=== PATIENT | male | born 1945 | race Caucasian/White ===

== ENCOUNTER 2024-02-12 18:47 | Inpatient (IN) | payer MEDICARE, BC, SELFPAY ==
[2024-02-12] VITALS (7 sets, daily range): BP systolic 136–160; BP diastolic 76–112; BMI 30.9; BMI 30.1
[2024-02-12 14:27] LABS: % Basophils 0.3 % (0-2); % Immature Granulocytes 0.4 % (0-0.5); % Lymphocytes 9.8 % (20.5-51.1); % Monocytes 17.2 % (1.7-9.3); % Neutrophils 72.3 % (42.2-75.2); Absolute Lymphocytes 0.9 10^3/uL (1.2-3.4); Absolute Monocytes 1.6 10^3/uL (0.1-0.6); Absolute Neutrophils 6.5 10^3/uL (1.4-6.5); Hematocrit 44.4 % (39.0-52.0); Mean Corp Hgb Conc. 33.8 g/dL (33.0-37.0); Mean Corpuscular Hgb 31.7 pg (27.0-31.0); Mean Corpuscular Volume 93.9 fL (80.0-94.0); Nucleated Red Blood Cells % 0 % (-); Platelet Count 190 10^3/uL (130-400); Red Blood Cell Count 4.73 10^6/uL (4.70-6.10); Red Cell Dist. Width 13.1 % (11.5-14.5)
[2024-02-12 14:41] LABS: COVID-19 Antigen Negative (Negative)
[2024-02-12 14:44] LABS: ALT (SGPT) 48 U/L (0-50); AST (SGOT) 46 U/L (17-59); Albumin 4.5 g/dl (3.5-5.0); Alkaline Phosphatase 83 U/L (38-126); Blood Urea Nitrogen 18 mg/dl (9-20); Calcium 9.6 mg/dl (8.4-10.2); Carbon Dioxide 29 mmol/L (22-30); Chloride 100 mmol/L (98-107); Glucose 146 mg/dl (70-99); Potassium 4.3 mmol/L (3.5-5.1); Sodium 141 mmol/L (135-145); Total Bilirubin 0.6 mg/dl (0.2-1.3); eGFR > 60.00
--- NOTE | 2024-02-12 16:50 | ED.GENMED ---
History of Present Illness
General
Chief Complaint: Breathing Problem
Source: patient
Exam Limitations: none
Time Seen by Provider: 02/12/24 15:45
Nursing documentation reviewed up to this point in time: agreed with
History of Present Illness
History of Present Illness:
Patient to ED with complaint of SOB and cough. States symptoms started on Sunday. COugh causing him to vomit. Repots feeling feverish at times. Evaluated by PCP today and was advised tocome to ED for CXR and labs. No CP/pressure. No prior
history of same.
Past History
Past History
ED Past Medical History: Cancer (Basal cell, TIA), HTN, Hypercholesterolemia and Other (Diverticulitis)
ED Past Surgical History: Orthopedic and Other (Umbilical hernia repair)
Patient has exhibited threatening behavior?: No
PSI?: No
Social History
Tobacco: Non-smoker
Alcohol: None
Drug: None
Personal:
Living: with family
Employment: Employed
Family History
Family History: Hypertension
Review of Systems
Review of Systems
Allergies reviewed?: Yes
All Other Systems: ROS reviewed and negative except as documented in HPI and ROS
Constitutional: Reports fatigue
EENT: Reports no symptoms
Respiratory: Reports cough and trouble breathing
Cardiac: Reports no symptoms
ABD/GI: Reports nausea
: Reports no symptoms
Musculoskeletal: Reports no symptoms
Skin: Reports no symptoms
Neurological: Reports no symptoms
Psychiatric: Reports no symptoms
Phy Exam
General Physical Exam
General Presentation: mild distress
General age: appears stated age
General Skin: warm and dry
General Habitus: normal
General Mental: alert
General Hydration: appears well hydrated
Cardiovascular Exam
Cardiovascular Exam: regular rate/rhythm and no edema
Pulmonary Exam
Pulmonary Exam: chest non tender, decreased breath sounds and generalized wheezing
Oxygen Status: oxygen 2 liters via NC (87% RA. Placed on 3LNC and improved to 94%)
Cough: non productive cough
Breath Sounds: Wheeze: generalized
Gastrointestinal Exam
Gastrointestinal Exam: non tender and soft
Musculoskeletal Exam
Musculoskeletal Exam: full ROM and neuro vasc intact
Skin Exam
Skin Exam: normal color, warm/dry and no rash
Psychiatric Exam
Psychiatric Exam: normal mood/affect
Scores
Heart Failure Risk
Heart Failure Risk Score: Not Applicable
Course
Orders/Labs/Results
Orders:
Orders
02/12/24 Breakfast
Cholesterol Lowering
At Your Request: Full Participation
Does patient need a safe tray?: No
Cholesterol Lowering: Sodium, 2 Gram
02/12/24 14:10
COVID-19 Antigen Urgent
Source: Nasal Swab
Complete Blood Count/With Diff Urgent
Comprehensive Metabolic Panel Urgent
NT-proBNP Urgent
Comment: ADD ON
02/12/24 15:45
CXR2 [CR Chest - 2 Views ] Urgent
Comment:
Reason For Exam: sob
02/12/24 16:42
Ipratropium/Albuterol Sulfate [Duoneb] 3 ml .ROUTE .STK-MED ONE
02/12/24 16:48
Dexamethasone Sod Phosphate [Decadron] 10 mg IV NOW STA
Dexamethasone Sod Phosphate [Decadron] 20 mg .ROUTE .STK-MED ONE
Ipratropium/Albuterol Sulfate [Duoneb] 3 ml INH R NOW STA
02/12/24 16:49
Add On- LAB Urgent
Tests Added?: BNP
02/12/24 16:50
Electrocardiogram (*1) Urgent
Reason for Study: Shortness of Breath
EKG- Treatment ONCE
02/12/24 16:52
Ondansetron Injectable [Zofran] 4 mg .ROUTE .STK-MED ONE
02/12/24 16:53
Ondansetron Injectable [Zofran] 4 mg IV NOW STA
02/12/24 16:54
0.9% Sodium Chloride 1000 ml [Nss] 1,000 ml IV BOLUS
02/12/24 18:27
Admit/Transfer Patient As Directed
Co-Sign Provider:
Level of Care: Inpatient admission
Assign to:: Telemetry
Physician / Group: adriane galo
Diagnosis: asthmatic bronchitis
Reason for Telemetry: Arrhythmia
Date to Stop Telemetry: 02/15/24
Time to Stop Telemetry: 11:00
Reason for Hospitalization: asthmatic bronchitis
Expected length of stay greater than two midnights?: Yes
ELOS- Estimated Length of Stay in days: 3
I certify the patient meets the requirements for IP care: Yes
Code Status As Directed
Resuscitation Status: Full Code
PRN Pain Medication Management As Directed
May give lesser potent ordered pain med per pt: Yes
preference::
Protocol:: Medication orders for pain may be administered in a
manner that supports deferring to patient preference
when the pt is:
- Requesting an ordered lesser potent pain medication.
Least to most potent pain medications are defined
as: acetaminophen < NSAID < tramadol < opioids
(morphine, oxycodone, hydromorphone).
- Requesting a lesser dose of the same medication IF
ORDERED.
- Requesting a less intrusive route of administration
if both routes are prescribed by the provider (PO <
IV).
02/12/24 18:28
Procalcitonin Routine
PCT Algorithmm Indication: Respiratory
02/12/24 20:21
Acetaminophen [Tylenol] 650 mg PO Q4HPRN PRN
Apixaban [Eliquis] 5 mg PO BID
Bisacodyl [Dulcolax] 10 mg RECTAL [id number] PRN
Docusate W/Senna [Senokot-S] 1 tablet PO BIDPRN PRN
Guaifenesin [Mucinex] 1,200 mg PO Q12
Ipratropium/Albuterol Sulfate [Duoneb] 3 ml INH R Q4HPRN PRN
Polyethylene Glycol Powder [Miralax] 17 grams PO DAILYPRN PRN
02/12/24 20:21
Activity As Directed
Activity Level: As Tolerated
Vital Signs As Directed
Frequency: Per unit guidelines
O2 Therapy [RESP] Routine
Titrate/Wean O2 to maintain O2 sat greater than (%): 95
02/12/24 22:00
Azithromycin 500 mg/250 ml [Zithromax Infusion] 500 mg in 250 ml IV Q24H
MethylPREDNISolone PF [Solu-Medrol Pf] 40 mg IV Q6H
02/13/24 04:31
Basic Metabolic Panel IN AM
Complete Blood Count/No Diff IN AM
02/13/24 06:00
Physical Therapy Consult [Pt Eval And Treat] IN AM
Activity Level: As Tolerated
02/13/24 08:00
Diltiazem Extended Release [Cardizem Cd] 240 mg PO DAILY
Fluoxetine HCl [Prozac] 10 mg PO DAILY
Fluoxetine HCl [Prozac] 40 mg PO DAILY
Rosuvastatin Calcium [Crestor] 10 mg PO DAILY
Tamsulosin [Flomax] 0.4 mg PO DAILY
02/14/24 06:00
Basic Metabolic Panel IN AM
Complete Blood Count/No Diff IN AM
02/15/24 06:00
Basic Metabolic Panel IN AM
Complete Blood Count/No Diff IN AM
02/15/24 11:00
DC Protocol for Telemetry ONCE
02/16/24 06:00
Basic Metabolic Panel IN AM
Complete Blood Count/No Diff IN AM
02/17/24 06:00
Basic Metabolic Panel IN AM
Complete Blood Count/No Diff IN AM
Abnormal Lab Results
02/12/24
14:10
MCH 31.7 H pg
(27.0-31.0)
Absolute Lymphs (auto) 0.9 L 10^3/uL
(1.2-3.4)
Absolute Monos (auto) 1.6 H 10^3/uL
(0.1-0.6)
Lymphocytes % 9.8 L %
(20.5-51.1)
Monocytes % 17.2 H %
(1.7-9.3)
Glucose 146 H mg/dl
(70-99)
02/12/24 14:10
02/12/24 14:10
Vital Signs
Initial and Last Documented VS:
Initial Vital Signs
Temp Pulse Resp BP Pulse Ox
97.6 F 94 18 160/112 91
02/12/24 14:07 02/12/24 14:07 02/12/24 14:07 02/12/24 14:07 02/12/24 14:07
Last Documented Vital Signs
Temp Pulse Resp BP Pulse Ox
97.9 F 82 19 105/55 94
02/13/24 14:53 02/13/24 14:53 02/13/24 14:53 02/13/24 14:53 02/13/24 14:53
*Radiology
Radiology exam reviewed: radiology read reviewed
*Pulse Oximetry
Patient hypoxic: yes
*Critical Care Note
Total Time (30-74mins, 75-104mins- exclusive of procedures): Not Applicable
ED Attending Note
-
Portions of this chart may have been created with voice recognition software.� Occasional wrong word or��sound alike� substitutions may have occurred due to the inherent limitations of voice recognition software.
Discharge Plan
Departure
Patient Disposition: Admit
Date of Disposition: 02/12/24
Time of Disposition: 18:03
Presentation/result/management discussed w/ accepting MD/DO: Hospitalist
Condition: Fair
Covid-19: Not Applicable
Discharge Problem:
Acute asthmatic bronchitis, Hypoxemia
Interventions
Interventions:
*General Assessment Last Done: 02/12/24 16:49
*Neglect/Abuse Screening Last Done: 02/12/24 16:49
ED- Fall Risk Assessment Last Done: 02/12/24 16:49
*Nursing Disposition Last Done: 02/12/24 20:21
ED- Cardiac Assessment Last Done: 02/12/24 16:49
ED- Pulmonary Assessment Last Done: 02/12/24 16:49
Discharge Date and Time
Discharge Date/Time: 02/12/24 20:22
[2024-02-12] MEDS: ZOFRAN 4 MG IV (16:53)
[2024-02-12] MEDS: DECADRON 10 MG IV (16:54)
[2024-02-12] MEDS: NSS 1000 IV (16:55)
--- NOTE | 2024-02-12 18:06 | HPS.HSE ---
Family Physician
-
Family Physician: INTERVIEWE UNKNOWN - PT NOT
Chief Complaint
-
sob and cough
History of Present Illness
78-year-old with past medical history for hyperlipidemia, diabetes mellitus, hypertension, TIA, basal cell carcinoma presented to us with short of breath associated cough with clear sputum since Sunday. Short of breath worse with exertion. Patient
complained of chest pain with cough. Patient has been vomiting after coughing spells. Patient had a fever of 102 at home. Complaining of a headache and dizziness. He denied any syncopal episode. Denied numbness tingling and blurry vision.
Denied abdominal pain, diarrhea. Denied dysuria, hematuria. Patient stated poor appetite for 4 days.
Patient is requiring 3 L of oxygen in the ER. Patient received a dose of steroids, nebs in ER. Admitting for further management.
Medical History
Past Medical History
Past Medical History: Reports Other
Additional Past Medical History:
Anxiety hypertension
diverticulosis
Lower GI bleed
TIA
paroxysmal atrial fibs
BPH
essential tremor
hyperlipidemia
Past Surgical History: Reports Other
Additional Past Surgical History:
Left knee replacement
Left cataract surgery
Basal cell removed from right neck
Social History
Tobacco: Smoker
Alcohol: None
Drug: None
Living: With Family
Family History
Family History: Not pertinent
Allergies / Home Medications
Allergies reflects when Allergies were last updated in [employer].
Home Medications with original date entered in [employer]
Allergy/Medication List:
Allergies
Allergy/AdvReac Type Severity Reaction Status Date / Time
atropine sulfate Allergy Hives Verified 02/12/24 14:09
[From ]
broccoli Allergy diarrhea Verified 02/12/24 14:09
cauliflower Allergy DIARRHEA Verified 02/12/24 14:09
hyoscyamine sulfate Allergy Hives Verified 02/12/24 14:09
[From ]
latex Allergy Rash, red Verified 02/12/24 14:09
hands
onion Allergy DIARRHEA Verified 02/12/24 14:09
phenobarbital [From ] Allergy Hives Verified 02/12/24 14:09
scopolamine hydrobromide Allergy Hives Verified 02/12/24 14:09
[From ]
Home Medications
simvastatin 40 mg tablet 20 mg PO DAILY High cholesterol 11/09/11
cholecalciferol (vitamin D3) 25 mcg (1,000 unit) capsule (Vitamin D3) 1,000 unit PO DAILY Supplement 10/21/16
diazepam 5 mg tablet 5 mg PO TIDPRN PRN ANXIETY/SLEEP 04/23/18
silodosin 8 mg capsule 8 mg PO DAILY 04/23/18
apixaban 5 mg tablet (Eliquis) 5 mg PO BID #60 tabs 03/12/23
doxycycline hyclate 100 mg capsule 100 mg PO BID #8 caps 03/12/23
fluoxetine 10 mg tablet 50 mg PO DAILY Depression 03/12/23
metoprolol succinate 25 mg tablet,extended release 24 hr 25 mg PO BID 30 days #60 tabs 03/12/23
prednisone 10 mg tablet See Rx Instructions .Route .COMPLEX #20 tabs 03/12/23
albuterol sulfate 90 mcg/actuation aerosol inhaler 2 puff inhalation Q6H PRN shortness of breath or wheezing #6.7 grams 03/13/23
Review of Systems
-
Constitutional: Reports No Symptoms
EENT: Reports No Symptoms
Respiratory: Reports Cough and Trouble Breathing
Cardiac: Reports No Symptoms
Abdomen/GI: Reports Nausea and Vomiting
: Reports No Symptoms
Musculoskeletal: Reports No Symptoms
Skin: Reports No Symptoms
Neurological: Reports Dizzy and Headache
Endocrine: Reports No Symptoms
Hematologic/Lymphatic: Reports No Symptoms
Psych: Reports No Symptoms
Physical Exam
Vital Signs
Vital Signs
Temp Pulse Resp BP Pulse Ox
97.6 F 92 23 154/89 94
02/12/24 14:07 02/12/24 16:45 02/12/24 16:45 02/12/24 16:38 02/12/24 16:52
Physical Exam
General: Well Developed, Well Nourished and No Apparent Distress
HEENT: NormoCephalic, Moist mucous membranes and Atraumatic
Respiratory: Wheezes and Rales
Cardiac: S1/S2 and Regular Rhythm; No Murmur or Rub
GI: Soft, Non Tender, Non Distended and Normal Bowel Sounds; No Organomegaly
Rectal: Deferred by Provider
Musculoskeletal: No Clubbing, No Cyanosis and No Edema
Skin: No Rash
Neuro: AO x 3 and Nonfocal/grossly intact
Psych: Calm
Laboratory Results
-
02/12/24 14:10
02/12/24 14:10
Laboratory Results
Total Bilirubin 0.6 mg/dl (0.2-1.3) 02/12/24 14:10
AST 46 U/L (17-59) 02/12/24 14:10
ALT 48 U/L (0-50) 02/12/24 14:10
Alkaline Phosphatase 83 U/L (38-126) 02/12/24 14:10
Data Reviewed
-
Diagnostic Radiology: Report Reviewed by me
Lab Data: Labs Reviewed by me
Impression/Plan
-
# Acute hypoxic respiratory failure likely from COPD exacerbation
-COVID-negative
-Patient was low 90s on room air, at present requiring 2 L
-Chest x-ray with impression of No acute cardiopulmonary abnormality.
-Patient received dexamethasone, albuterol in ER
-Continue steroids, nebs as needed for short of breath and wheezing
-Continue supplemental oxygen to keep sat greater than 92
-wean as tolerated
-Started on azithromycin
-Mucinex for cough
-Obtain Pro-Max
-follow pulmonology as outpatient
# Paroxysmal atrial fibrillation
-EKG with normal sinus rhythm
�-Continue Eliquis, diltiazem
# History of TIA
#Anxiety / Depression
�- Stable. fluoxetine continued
#SAMY
�- Not currently on PAP therapy.
�- Encouraged to follow-up as an outpatient for repeat trial of device fitting.
#DVT Prophylaxis
-Eliquis
Code Status:� Full
--- NOTE | 2024-02-12 18:33 | W.PN.UPDATE ---
Update Note
Progress Note Update
I saw and examined the patient.
The ORTHOPEDIC SHOES SALESPERSON or PA's note was reviewed and I agree with the note.
Comment: See ORTHOPEDIC SHOES SALESPERSON/PA note for further detail. See my plan below.
78-year-old male hx of extensive smoking but no COPD dx with otherwise past medical history of hypertension, ?asthmatic bronchitis, atrial fibrillation, prior TIA, anxiety/depression, SAMY unclear if compliant with mask, basal cell carcinoma, now
presents for continued shortness of breath and cough.� Symptoms began Sunday, severe enough to cause him to vomit.� has similar symptoms and has been sick.� Subjective fevers noted.� Otherwise no chest pain, nausea, diarrhea.� Patient noted to
be hypoxic to 84% on room air, brought up to 94% on 3 L.� Respirate 23, pulse 92, afebrile.� SARS-CoV-2 negative.� X-ray unremarkable for acute pathology.� Physical exam notable for tachycardia, decreased breath sounds, generalized wheezing
bilaterally, nonproductive cough. Non toxic. Plan�DuoNebs standing and as needed, procalcitonin; empiric azithromycin.� Start Solu-Medrol 40 mg IV every 6h. �Otherwise continue other home medications including Eliquis, metoprolol, statin
antidepressants. Will need at least Spiriva upon dc, and pulm/pft f/u outpatient.
--- NOTE | 2024-02-12 18:34 | PHANOTE ---
med rec lindsay(02/12/24)-Patient was unsure of his own medications, relied heavily on list patient provided, in conjunction with [facility] records from PCP visit today and pharmacy records.
[2024-02-12 18:47] LABS: NT-proBNP 1110 pg/ml
[2024-02-12 19:13] LABS: Procalcitonin 0.06 ng/ml (0.0-0.25)
--- NOTE | 2024-02-12 21:10 | PTCARENOTE ---
Pt transferred from ED. Pt ambulated into room with assistance. Pt SOB, 3L O2, VSS. Pt oriented to unit, call kohli within reach, bed in lowest position. Will continue with current plan.
[2024-02-12] MEDS: MUCINEX 1200 MG PO (21:42)
[2024-02-12] MEDS: ELIQUIS 5 MG PO (21:42)
[2024-02-12] MEDS: ZITHROMAX INFUSION 250 IV (21:44)
[2024-02-12] MEDS: SOLU-MEDROL PF 40 MG IV (21:48)
[2024-02-13] MEDS: SOLU-MEDROL PF 40 MG IV ×4 (03:27→22:27)
[2024-02-13 03:43] VITALS: BP 110/64
[2024-02-13 07:02] LABS: Hematocrit 38.6 % (39.0-52.0); Hemoglobin 13.3 g/dL (13.0-18.0); Mean Corp Hgb Conc. 34.5 g/dL (33.0-37.0); Mean Corpuscular Hgb 32.6 pg (27.0-31.0); Mean Corpuscular Volume 94.6 fL (80.0-94.0); Mean Platelet Volume 10.9 fL (7.4-10.4); Platelet Count 174 10^3/uL (130-400); Red Blood Cell Count 4.08 10^6/uL (4.70-6.10); Red Cell Dist. Width 13.2 % (11.5-14.5); White Blood Cell Count 7.1 10^3/uL (4.8-10.8)
[2024-02-13 07:24] LABS: Blood Urea Nitrogen 19 mg/dl (9-20); Calcium 8.7 mg/dl (8.4-10.2); Carbon Dioxide 26 mmol/L (22-30); Chloride 103 mmol/L (98-107); Estimated Creatinine Clearance 92 ml/min; Glucose 143 mg/dl (70-99); Potassium 4.3 mmol/L (3.5-5.1); Sodium 138 mmol/L (135-145); eGFR > 60.00
[2024-02-13 07:36] VITALS: BP 110/70
[2024-02-13] MEDS: CARDIZEM CD 240 MG PO (08:00)
[2024-02-13] MEDS: PROZAC 40 MG PO (08:48)
[2024-02-13] MEDS: CRESTOR 10 MG PO (08:49)
[2024-02-13] MEDS: FLOMAX 0.4 MG PO (08:49)
[2024-02-13] MEDS: MUCINEX 1200 MG PO ×2 (08:49→22:26)
[2024-02-13] MEDS: ELIQUIS 5 MG PO ×2 (08:49→22:25)
[2024-02-13] MEDS: PROZAC 10 MG PO (08:50)
--- NOTE | 2024-02-13 12:01 | CM ---
Patient seen bedside, initial assessment completed. Patient resides with his , Abi, in a ranch style home, three small steps to enter. Patient reports he has DME in the home after knee replacement, believes he has a walker and cane, does not
use DME. Patient denies VN or SNF, reports history of outpatient PT at the ambulatory center. Patient confirms PCP Dr. James, pharmacy used [facility] [address] in [place]. Patient confirms prescription coverage, denies food, housing/utility,
transportation insecurities at home. Patient currently on O2, is not on home O2. PT ordered, will watch for recommendations. CM will continue to follow for all discharge planning needs.
Plan; home no needs vs VN, watch O2 needs.
--- NOTE | 2024-02-13 13:47 | W.PN.HOSP.TC ---
Today's Communication/Plan
-
cont steroids
wean os as tolerated;
incentive antoinette
azithro
Assessment / Plan
Assessment / Plan
Physical Exam
General: Well Developed, Well Nourished and No Apparent Distress
HEENT: NormoCephalic, Moist mucous membranes and Atraumatic
Respiratory: Wheezes and Rales
Cardiac: S1/S2 and Regular Rhythm; No Murmur or Rub
GI: Soft, Non Tender, Non Distended and Normal Bowel Sounds; No Organomegaly
Rectal: Deferred by Provider
Musculoskeletal: No Clubbing, No Cyanosis and No Edema
Skin: No Rash
Neuro: AO x 3 and Nonfocal/grossly intact
Psych: Calm
# Acute hypoxic respiratory failure likely from undiagnosed COPD exacerbation
-COVID-negative
-empiric azithro
-Cont Solumedrol - taper tomorrow
-incentive antoinette
-duonebs
-spiriva on dc
-will need pfts/pulm outpatient
-Continue supplemental oxygen to keep sat greater than 92
-wean as tolerated
-Mucinex for cough
# Paroxysmal atrial fibrillation
-EKG with normal sinus rhythm
�-Continue Eliquis, diltiazem
# History of TIA
#Anxiety / Depression
�- Stable. fluoxetine continued
#SAMY
�- Not currently on PAP therapy.
�- Encouraged to follow-up as an outpatient for repeat trial of device fitting.
#DVT Prophylaxis
-Eliquis
Code Status:� Full
Anticipated Discharge: 24 - 48 hours
Subjective/Interval History
-
Date of Service: February 13, 2024
Improved respiratory status
Objective Data
-
Labs:
Laboratory Results
02/13/24
04:31
WBC 7.1
Hgb 13.3
Hct 38.6 L
Plt Count 174
Sodium 138
Potassium 4.3
Chloride 103
Carbon Dioxide 26
BUN 19
Creatinine 0.7
Glucose 143 H
Calcium 8.7
Vital Signs:
Vital Signs
Temp Pulse Resp BP Pulse Ox
97.8 F 70 17 110/70 97
02/13/24 07:36 02/13/24 08:00 02/13/24 07:36 02/13/24 08:00 02/13/24 08:00
I&O
02/12/24 02/13/24 02/14/24
06:59 06:59 06:59
Intake Total 480 / 480
Balance 480 / 480
Review of Systems
-
History Source: Patient
All other systems: Not reviewed unless documented
Data Reviewed
-
Diagnostic Radiology: Image personally visualized and interpreted and Report Reviewed by me
Labs: Labs Reviewed by me
[2024-02-13 14:53] VITALS: BP 105/55
[2024-02-13 15:10] VITALS: BP 103/73; PULSE 82; O2SAT 93
[2024-02-13 19:48] VITALS: BP 128/78
[2024-02-13] MEDS: ZITHROMAX INFUSION 250 IV (22:26)
[2024-02-13] MEDS: ROBITUSSIN 100 MG PO (22:46)
[2024-02-13 22:54] VITALS: BP 118/65
[2024-02-14 03:44] VITALS: BP 134/76
[2024-02-14] MEDS: SOLU-MEDROL PF 40 MG IV ×3 (03:58→16:59)
[2024-02-14 06:40] LABS: Hematocrit 38.8 % (39.0-52.0); Hemoglobin 13.3 g/dL (13.0-18.0); Mean Corp Hgb Conc. 34.3 g/dL (33.0-37.0); Mean Corpuscular Hgb 32.4 pg (27.0-31.0); Mean Corpuscular Volume 94.4 fL (80.0-94.0); Mean Platelet Volume 11.2 fL (7.4-10.4); Platelet Count 185 10^3/uL (130-400); Red Blood Cell Count 4.11 10^6/uL (4.70-6.10); Red Cell Dist. Width 13.2 % (11.5-14.5); White Blood Cell Count 11.7 10^3/uL (4.8-10.8)
[2024-02-14 07:00] VITALS: BP 133/78
[2024-02-14 07:16] LABS: Blood Urea Nitrogen 24 mg/dl (9-20); Calcium 8.8 mg/dl (8.4-10.2); Carbon Dioxide 27 mmol/L (22-30); Chloride 101 mmol/L (98-107); Estimated Creatinine Clearance 92 ml/min; Glucose 162 mg/dl (70-99); Potassium 4.3 mmol/L (3.5-5.1); Sodium 138 mmol/L (135-145); eGFR > 60.00
--- NOTE | 2024-02-14 08:55 | PN.CDI ---
CDI
- -
CDI:
Physician Documentation Request
Admit Date: 02/12/24 18:47
Dear Doctor Poncho,
Please review the following and provide your response in the progress notes.
Clinical Indicators:
Documentation in the record on PN, 02/12 includes the diagnosis of Acute Hypoxic Respiratory Failure. The patient's respiratory clinical indicators were the following:
PLEASE PROVIDE SYMPTOMS, INCLUDED IN CHART/CRITERIA BELOW
H+P, 02/11
#Respiratory: Reports Cough and Trouble Breathing
#Respiratory: Wheezes and Rales
# Acute hypoxic respiratory failure likely from COPD exacerbation
#...-Patient was low 90s on room air, at present requiring 2 L
#...-Continue steroids, nebs as needed for short of breath and wheezing
#...-Continue supplemental oxygen to keep sat greater than 92
PN, 02/12
# Acute hypoxic respiratory failure likely from undiagnosed COPD exacerbation
#02/11 - 02/13
#...Maintained on 2-3 L O2 NC
Recognized standard criteria for respiratory failure includes:
(Source: [facility] Hospitalist Apr 2013)
Symptoms:
�Tachypnea, SOB, dyspnea
�Pallor or cyanosis
�Anxiety or restlessness
�Use of accessory muscles
�Retractions (grunting in newborns)
�Unable to speak in complete sentences
Supplemental O2 requirement of 40% (5LPM) or more Intubation is not required
Based on the above information and the recognized standard for respiratory failure, please verify this diagnoses is still accurate and reflective of the patient�s condition to ensure quality of the medical record.
Please clarify in the Progress Notes:
Respiratory failure is/was present and is a clinical diagnosis based on (please include this additional support in the medical record)
After study respiratory failure has been ruled out
Other(please specify)
Use of terms such as suspected, likely, concern for, or probable (associated with a specific diagnosis that is being evaluated, monitored, or treated as if it exists) are acceptable and can be coded in the inpatient setting, when documented at the
time of discharge.
Thank you,
Essie Bañuelos RN BSN CCDS
CDI Specialist
please contact via tiger text
Please use your independent medical judgment in providing your response.
[2024-02-14] MEDS: PROZAC 10 MG PO (09:18)
[2024-02-14] MEDS: CARDIZEM CD 240 MG PO (09:18)
[2024-02-14] MEDS: MUCINEX 1200 MG PO ×2 (09:18→20:18)
[2024-02-14] MEDS: CRESTOR 10 MG PO (09:19)
[2024-02-14] MEDS: FLOMAX 0.4 MG PO (09:19)
[2024-02-14] MEDS: ELIQUIS 5 MG PO ×2 (09:19→20:18)
[2024-02-14] MEDS: PROZAC 40 MG PO (09:20)
[2024-02-14 11:00] VITALS: BP 124/69
--- NOTE | 2024-02-14 13:33 | W.PN.HOSP.TC ---
Addendum entered and electronically signed by Rom Isaac MD 02/14/24 15:18:
#COPD Exacerbation - not acute hypoxic respiratory failure
Original Note:
Today's Communication/Plan
-
wean steroids
cont azithro
weaned off o2
Assessment / Plan
Assessment / Plan
Physical Exam
General: Well Developed, Well Nourished and No Apparent Distress
HEENT: NormoCephalic, Moist mucous membranes and Atraumatic
Respiratory: Wheezes and Rales
Cardiac: S1/S2 and Regular Rhythm; No Murmur or Rub
GI: Soft, Non Tender, Non Distended and Normal Bowel Sounds; No Organomegaly
Rectal: Deferred by Provider
Musculoskeletal: No Clubbing, No Cyanosis and No Edema
Skin: No Rash
Neuro: AO x 3 and Nonfocal/grossly intact
Psych: Calm
# Acute hypoxic respiratory failure likely from undiagnosed COPD exacerbation
-COVID-negative
-empiric azithro - 5 days
-Cont Solumedrol - taper to 40mg 8h
-duonebs
-spiriva on dc
-will need pfts/pulm outpatient
-Continue supplemental oxygen to keep sat greater than 92
-wean as tolerated
-Mucinex for cough
# Paroxysmal atrial fibrillation
-EKG with normal sinus rhythm
�-Continue Eliquis, diltiazem
# History of TIA
#Anxiety / Depression
�- Stable. fluoxetine continued
#SAMY
�- Not currently on PAP therapy.
�- Encouraged to follow-up as an outpatient for repeat trial of device fitting.
#DVT Prophylaxis
-Eliquis
Code Status:� Full
Anticipated Discharge: > 48 hours
Subjective/Interval History
-
Date of Service: February 14, 2024
Patient weaned of oxygen, wheezing slightly improved
Objective Data
-
Labs:
Laboratory Results
02/14/24
04:40
WBC 11.7 H
Hgb 13.3
Hct 38.8 L
Plt Count 185
Sodium 138
Potassium 4.3
Chloride 101
Carbon Dioxide 27
BUN 24 H
Creatinine 0.7
Glucose 162 H
Calcium 8.8
Vital Signs:
Vital Signs
Temp Pulse Resp BP Pulse Ox
98.3 F 72 18 124/69 96
02/14/24 11:00 02/14/24 11:00 02/14/24 11:00 02/14/24 11:00 02/14/24 11:00
I&O
02/13/24 02/14/24 02/15/24
06:59 06:59 06:59
Intake Total 480 / 480 1210 / 1210
Output Total 650 / 650
Balance 480 / 480 560 / 560
Review of Systems
-
History Source: Patient
All other systems: Not reviewed unless documented
Data Reviewed
-
Diagnostic Radiology: Image personally visualized and interpreted and Report Reviewed by me
Labs: Labs Reviewed by me
[2024-02-14 15:37] VITALS: BP 138/79
--- NOTE | 2024-02-14 15:48 | CM ---
Patient seen bedside asleep, CM reviewed chart. Per PT, no skilled need. Weaned off O2. CM will continue to follow for all discharge planning needs.
Plan; home no needs likely.
[2024-02-14 19:30] VITALS: BP 143/69
[2024-02-14 21:00] VITALS: BMI 30.1
[2024-02-14] MEDS: ZITHROMAX INFUSION 250 IV (23:17)
[2024-02-14 23:42] VITALS: BP 145/84
[2024-02-15] VITALS (8 sets, daily range): BP systolic 124–174; BP diastolic 62–101; PULSE 102; O2SAT 95
[2024-02-15] MEDS: SOLU-MEDROL PF 40 MG IV ×3 (01:07→17:00)
[2024-02-15 06:56] LABS: Hematocrit 38.6 % (39.0-52.0); Hemoglobin 13.1 g/dL (13.0-18.0); Mean Corp Hgb Conc. 33.9 g/dL (33.0-37.0); Mean Corpuscular Hgb 31.4 pg (27.0-31.0); Mean Corpuscular Volume 92.6 fL (80.0-94.0); Mean Platelet Volume 11.1 fL (7.4-10.4); Platelet Count 197 10^3/uL (130-400); Red Blood Cell Count 4.17 10^6/uL (4.70-6.10); Red Cell Dist. Width 13.2 % (11.5-14.5); White Blood Cell Count 10.8 10^3/uL (4.8-10.8)
[2024-02-15 07:16] LABS: Blood Urea Nitrogen 25 mg/dl (9-20); Calcium 8.7 mg/dl (8.4-10.2); Carbon Dioxide 28 mmol/L (22-30); Chloride 102 mmol/L (98-107); Estimated Creatinine Clearance 92 ml/min; Glucose 153 mg/dl (70-99); Potassium 3.9 mmol/L (3.5-5.1); Sodium 141 mmol/L (135-145); eGFR > 60.00
[2024-02-15] MEDS: MUCINEX 1200 MG PO ×2 (08:38→20:00)
[2024-02-15] MEDS: CARDIZEM CD 240 MG PO (08:38)
[2024-02-15] MEDS: FLOMAX 0.4 MG PO (08:38)
[2024-02-15] MEDS: CRESTOR 10 MG PO (08:38)
[2024-02-15] MEDS: PROZAC 10 MG PO (08:38)
[2024-02-15] MEDS: PROZAC 40 MG PO (08:38)
[2024-02-15] MEDS: ELIQUIS 5 MG PO ×2 (08:38→20:00)
--- NOTE | 2024-02-15 13:00 | CM ---
Patient seen bedside, reports no needs to CM at this time. CM will continue to follow for all discharge planning needs.
Plan; home no needs.
[2024-02-15] MEDS: VALIUM 5 MG PO (14:12)
[2024-02-15] MEDS: ZITHROMAX INFUSION 250 IV (22:10)
[2024-02-16] MEDS: SOLU-MEDROL PF 40 MG IV ×2 (01:30→11:12)
[2024-02-16 03:00] VITALS: BP 120/71
[2024-02-16 07:21] VITALS: BP 130/96
[2024-02-16] MEDS: CRESTOR 10 MG PO (07:58)
[2024-02-16] MEDS: MUCINEX 1200 MG PO (07:58)
[2024-02-16] MEDS: FLOMAX 0.4 MG PO (07:59)
[2024-02-16] MEDS: PROZAC 10 MG PO (07:59)
[2024-02-16] MEDS: PROZAC 40 MG PO (07:59)
[2024-02-16] MEDS: ELIQUIS 5 MG PO (07:59)
[2024-02-16] MEDS: CARDIZEM CD 240 MG PO (07:59)
[2024-02-16 08:35] LABS: Mean Corpuscular Hgb 31.5 pg (27.0-31.0); Mean Corpuscular Volume 90.1 fL (80.0-94.0); Mean Platelet Volume 10.9 fL (7.4-10.4); Platelet Count 202 10^3/uL (130-400); Red Blood Cell Count 4.44 10^6/uL (4.70-6.10); Red Cell Dist. Width 13.1 % (11.5-14.5); White Blood Cell Count 9.3 10^3/uL (4.8-10.8)
[2024-02-16 08:49] LABS: Blood Urea Nitrogen 20 mg/dl (9-20); Calcium 8.9 mg/dl (8.4-10.2); Carbon Dioxide 30 mmol/L (22-30); Chloride 100 mmol/L (98-107); Estimated Creatinine Clearance 107 ml/min; Glucose 186 mg/dl (70-99); Potassium 3.7 mmol/L (3.5-5.1); Sodium 140 mmol/L (135-145); eGFR > 60.00
--- NOTE | 2024-02-16 10:18 | W.PN.HOSP.TC ---
Addendum entered and electronically signed by Rom Isaac MD 02/16/24 14:15:
[id number]
Original Note:
Today's Communication/Plan
-
DC on prednisone taper
Complete azithromycin course
Albuterol HFA PRN
Spiriva upon dc - will need pulmonary f/u for further titration/PFTs
Assessment / Plan
Assessment / Plan
Physical Exam
General: Well Developed, Well Nourished and No Apparent Distress
HEENT: NormoCephalic, Moist mucous membranes and Atraumatic
Respiratory: Wheezes and Rales
Cardiac: S1/S2 and Regular Rhythm; No Murmur or Rub
GI: Soft, Non Tender, Non Distended and Normal Bowel Sounds; No Organomegaly
Rectal: Deferred by Provider
Musculoskeletal: No Clubbing, No Cyanosis and No Edema
Skin: No Rash
Neuro: AO x 3 and Nonfocal/grossly intact
Psych: Calm
#Hypoxia
#Most likely underlying COPD exacerbation
#Tracheobronchitis
-COVID-negative
-empiric azithro - 5 days - complete course upon DC
-Solumedrol -switched to prednisone taper
-DC with spiriva and albuterol hfa prn
-Will need Pulmonary f/u for further work up including pfts and medication titration
# Paroxysmal atrial fibrillation
-EKG with normal sinus rhythm
�-Continue Eliquis, diltiazem
-better controlled now that copd exacerbation improved
# History of TIA
#Anxiety / Depression
�- Stable. fluoxetine continued
#SAMY
�- Not currently on PAP therapy.
�- Encouraged to follow-up as an outpatient for repeat trial of device fitting.
#DVT Prophylaxis
-Eliquis
Code Status:� Full
More than 30 minutes spent in discharge including
Final examination of the patient
Summarizing hospital stay
Instructions for continuing care to all relevant caregivers
Preparation of discharge records, prescriptions, and referral forms
Total time spent (35 in minutes):
Anticipated Discharge: Today
Subjective/Interval History
-
Date of Service: February 16, 2024
Respiratory symptoms greatly improved, wheezing minimal past. Feels much better, speaking full sentences. Desires to follow-up
Objective Data
-
Labs:
Laboratory Results
02/16/24
07:43
WBC 9.3
Hgb 14.0
Hct 40.0
Plt Count 202
Sodium 140
Potassium 3.7
Chloride 100
Carbon Dioxide 30
BUN 20
Creatinine 0.6 L
Glucose 186 H
Calcium 8.9
Vital Signs:
Vital Signs
Temp Pulse Resp BP Pulse Ox
97.4 F 88 20 130/96 93
02/16/24 07:21 02/16/24 07:21 02/16/24 07:21 02/16/24 07:21 02/16/24 07:21
I&O
02/15/24 02/16/24 02/17/24
06:59 06:59 06:59
Intake Total 460 / 460 730 / 730
Balance 460 / 460 730 / 730
Review of Systems
-
History Source: Patient
All other systems: Not reviewed unless documented
Data Reviewed
-
Diagnostic Radiology: Image personally visualized and interpreted and Report Reviewed by me
Labs: Labs Reviewed by me
--- NOTE | 2024-02-16 10:22 | W.DS.TRANS ---
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
-
Discharge Instructions:
Discharge Diagnosis/Procedures COPD Exacerbation
Diet Low Cholesterol,Low Fat
Activity As tolerated
Instructions:
Stand-Alone Forms:
Changes to Home Medications: Yes
Discharge Medications:
DC Medications w/original date entered in [employer]
cholecalciferol (vitamin D3) 25 mcg (1,000 unit) capsule (Vitamin D3) 1,000 unit PO DAILY Supplement 10/21/16
silodosin 8 mg capsule 8 mg PO DAILY 04/23/18
apixaban 5 mg tablet (Eliquis) 5 mg PO BID #60 tabs 03/12/23
fluoxetine 10 mg tablet 10 mg PO DAILY Depression 03/12/23
acetaminophen 500 mg tablet (Tylenol Extra Strength) 500 mg PO Q6HPRN PRN mild pain 02/12/24
amlodipine 2.5 mg tablet 2.5 mg PO DAILY 02/12/24
diazepam 5 mg tablet 5 mg PO DAILYPRN PRN ANXIETY/SLEEP 02/12/24
diltiazem HCl 240 mg capsule,24 hr,extended release 240 mg PO DAILY 02/12/24
fluoxetine 40 mg capsule 40 mg PO DAILY 02/12/24
ibuprofen 200 mg tablet 200 mg PO Q6HPRN PRN mild pain 02/12/24
rosuvastatin 10 mg tablet 10 mg PO DAILY 02/12/24
tamsulosin 0.4 mg capsule 0.4 mg PO DAILY 02/12/24
albuterol sulfate 90 mcg/actuation aerosol inhaler 2 puff inhalation R Q6HPRN PRN shortness of breath or wheezing #8.5 grams 02/16/24
azithromycin 500 mg tablet 500 mg PO DAILY 2 days #2 tabs 02/16/24
prednisone 10 mg tablet See Rx Instructions .Route .COMPLEX #45 tabs 02/16/24
tiotropium bromide 2.5 mcg/actuation mist for inhalation (Spiriva Respimat) 2 inh inhalation DAILY #4 grams 02/16/24
Home Medication Changes
albuterol sulfate 90 mcg/actuation aerosol inhaler 2 puff inhalation R Q6HPRN PRN shortness of breath or wheezing #8.5 grams 02/16/24
azithromycin 500 mg tablet 500 mg PO DAILY 2 days #2 tabs 02/16/24
prednisone 10 mg tablet See Rx Instructions .Route .COMPLEX #45 tabs 02/16/24
tiotropium bromide 2.5 mcg/actuation mist for inhalation (Spiriva Respimat) 2 inh inhalation DAILY #4 grams 02/16/24
Pending Results: No
--- NOTE | 2024-02-16 10:55 | CM ---
CM following re: discharge planning.
Reviewed pt's chart, met with pt.
Discharge order noted. pt is aware, expressed his agreement with discharge and he stated his spouse will transport home. IMM reviewed, placed ion chart, pt has a copy.
No after care VN needs identified at this time. Pt is independent with functional ability.
D/c plan: home no needs.
[2024-02-16 11:24] VITALS: BP 139/79
== END 2024-02-16 15:19 | disposition home or self-care (01) | DRG 192 ==
LOC: 4 WEST ACU 18:47
PROVIDERS: Emergency Medicine; Registered Nurse; ADMITTING PHYSICIAN Internal Medicine; EMERGENCY PHYSICIAN Emergency Medicine; FAMILY PHYSICIAN Family Medicine
DX: J44.1 Chronic obstructive pulmonary disease with (acute) exacerbation (principal); G47.33 Obstructive sleep apnea (adult) (pediatric); I10 Essential (primary) hypertension; I48.0 Paroxysmal atrial fibrillation; N40.0 Benign prostatic hyperplasia without lower urinary tract symptoms; G25.0 Essential tremor; F32.A Depression, unspecified; F41.9 Anxiety disorder, unspecified; R09.02 Hypoxemia; E78.00 Pure hypercholesterolemia, unspecified; E11.9 Type 2 diabetes mellitus without complications; Z11.52 Encounter for screening for COVID-19; Z86.73 Personal history of transient ischemic attack (TIA), and cerebral infarction without residual deficits; Z85.828 Personal history of other malignant neoplasm of skin; Z96.652 Presence of left artificial knee joint; Z88.8 Allergy status to other drugs, medicaments and biological substances; Z91.040 Latex allergy status; Z79.01 Long term (current) use of anticoagulants; Z79.899 Other long term (current) drug therapy; Z87.891 Personal history of nicotine dependence
CPT/HCPCS: 71046; 80048; 80053; 83880; 84145; 85025; 85027; 87811; 93005; 96374; 96375; 97116; 97162; 99285

== ENCOUNTER → 2024-04-01 12:42 | Outpatient (REF) | payer MEDICARE, BC, SELFPAY | LOC: RAD 12:42 | PROVIDERS: ATTENDING PHYSICIAN Internal Medicine Critical Care Medicine; FAMILY PHYSICIAN Family Medicine | DX: Z87.891 Personal history of nicotine dependence (principal) | CPT/HCPCS: 71271 ==

== ENCOUNTER → 2024-09-24 11:36 | Outpatient (REF) | payer MEDICARE, BC, SELFPAY | LOC: RAD 11:36 | PROVIDERS: ATTENDING PHYSICIAN Internal Medicine Critical Care Medicine; FAMILY PHYSICIAN Physician Assistant | DX: R59.0 Localized enlarged lymph nodes (principal) | CPT/HCPCS: 72193; Q9967 ==

== ENCOUNTER 2024-10-06 08:11 | Inpatient (IN) | payer MEDICARE, BC, SELFPAY ==
[2024-09-12 13:13] VITALS: BMI 31.7
[2024-09-12 13:53] LABS: Hematocrit 44.9 % (39.0-52.0); Hemoglobin 14.8 g/dL (13.0-18.0); Mean Corpuscular Hgb 31.2 pg (27.0-31.0); Mean Corpuscular Volume 94.5 fL (80.0-94.0); Mean Platelet Volume 10.5 fL (7.4-10.4); Platelet Count 227 10^3/uL (130-400); Red Blood Cell Count 4.75 10^6/uL (4.70-6.10); Red Cell Dist. Width 13.8 % (11.5-14.5); White Blood Cell Count 10.3 10^3/uL (4.8-10.8)
[2024-09-12 14:21] LABS: Glycohemoglobin (HgbA1c) 5.3 % (4.0-5.6)
[2024-09-12 14:39] LABS: ALT (SGPT) 41 U/L (0-50); AST (SGOT) 29 U/L (17-59); Albumin 4.5 g/dl (3.5-5.0); Alkaline Phosphatase 90 U/L (38-126); Blood Urea Nitrogen 12 mg/dl (9-20); Calcium 9.8 mg/dl (8.4-10.2); Carbon Dioxide 27 mmol/L (22-30); Chloride 107 mmol/L (98-107); Estimated Creatinine Clearance 69 ml/min; Glucose 100 mg/dl (70-99); Potassium 4.1 mmol/L (3.5-5.1); Sodium 143 mmol/L (135-145); Total Bilirubin 0.9 mg/dl (0.2-1.3); Total Protein 7.8 g/dl (6.3-8.2); eGFR > 60.00
[2024-09-12 14:59] VITALS: BMI 31.7
[2024-10-06] VITALS (11 sets, daily range): BP systolic 106–152; BP diastolic 61–90; PULSE 53; O2SAT 95; BMI 31.7
[2024-10-06] MEDS: CELEBREX 200 MG PO (08:06)
[2024-10-06] MEDS: TYLENOL 650 MG PO ×4 (08:06→20:42)
[2024-10-06] MEDS: NORMOSOL-R/PLASMALYTE-A 1000 IV ×2 (08:20→14:03)
--- NOTE | 2024-10-06 08:40 | CM ---
Addendum entered by Kayla Dunham RN 10/06/24 08:56:
CM spoke with patient and at bedside. They are agreeable to time and change in appointment time. CM will remain available as needed
Original Note:
SARAH was notified by nursing that patient's outpatient appointment for PT at is scheduled for Sunday. CM spoke with outpatient PT to move appointment up to Sunday 10/08. CM is awaiting return call.
CM confirmed 8am appointment on Sunday at [facility].
--- NOTE | 2024-10-06 09:16 | W.PN.UPDATE ---
Update Note
Progress Note Update
R TKA Dr. Collazo 10/06/24
DVT ppx Eliquis
Afib-Diltiazem--tele
Pain control
Daily ETOH
-Dilaudid-additional pain control-Serax+ Gabapentin+Thiamine
Recent tobacco-Cefadroxil ppx
COPD
Hx recurrent asthmatic bronchitis
SAMY
-incentive spirometry
-monitor O2 sats
Balance and gait disturbance-fall precautions
Hx GIB-PPI
VTD-Cgzyny-linarym void
--- NOTE | 2024-10-06 09:58 | W.DS.TRANS ---
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
-
Discharge Instructions:
Discharge Diagnosis/Procedures R TKA Dr. Collazo 10/06/24
Diet As tolerated
Activity With Walker,With assistance
Driving Restrictions No driving
Bathing Restrictions OK to Shower
Instructions:
Stand-Alone Forms: Total Hip/Knee Replacement D/C
Changes to Home Medications: Yes
Discharge Medications:
DC Medications w/original date entered in [employer]
cholecalciferol (vitamin D3) 25 mcg (1,000 unit) capsule (Vitamin D3) 1,000 unit PO DAILY Supplement 10/21/16
silodosin 8 mg capsule 8 mg PO DAILY 04/23/18
amlodipine 2.5 mg tablet 2.5 mg PO DAILY 02/12/24
diazepam 5 mg tablet 5 mg PO DAILYPRN PRN ANXIETY/SLEEP 02/12/24
diltiazem HCl 240 mg capsule,24 hr,extended release 240 mg PO DAILY 02/12/24
rosuvastatin 10 mg tablet 10 mg PO DAILY 02/12/24
tamsulosin 0.4 mg capsule 0.4 mg PO DAILY 02/12/24
tadalafil 10 mg tablet (Cialis) 10 mg PO DAILY PRN ED 09/08/24
fluoxetine 1 tab PO DAILY 09/12/24
mupirocin 2 % topical ointment 1 applic intranasal BID #1 tube 09/12/24
Saccharomyces boulardii 250 mg capsule (Florastor) 250 mg PO BID #1 cap 10/06/24
acetaminophen 500 mg tablet (Tylenol Extra Strength) 1,000 mg (2 x 500 mg) PO QID #0 tabs 10/06/24
apixaban 5 mg tablet (Eliquis) 2.5 mg (1/2 x 5 mg) PO BID Blood clot prevention/tx/afib #60 tabs 10/06/24
cefadroxil 500 mg capsule 500 mg PO BID infection prevention #14 caps 10/06/24
dexamethasone 4 mg tablet 4 mg PO BID inflammation #6 tabs 10/06/24
docusate sodium 100 mg capsule (Colace) 100 mg PO BID stool softner #1 cap 10/06/24
famotidine 20 mg tablet 20 mg PO HS GI prophylaxis #30 tabs 10/06/24
gabapentin 300 mg capsule 300 mg PO BID sleep/pain #14 caps 10/06/24
hydromorphone 2 mg tablet 2 - 4 mg (1 - 2 x 2 mg) PO Q6H PRN 1 tab moderate pain, 2 severe #30 tabs 10/06/24
magnesium hydroxide 400 mg/5 mL oral suspension (Milk of Magnesia) 30 ml PO HS PRN Constipation #1 mL 10/06/24
ondansetron 4 mg disintegrating tablet 4 mg PO Q6H PRN n/v #20 tabs 10/06/24
sennosides 8.6 mg tablet (Senokot) 17.2 mg (2 x 8.6 mg) PO BID laxative #2 tabs 10/06/24
Home Medication Changes
acetaminophen 500 mg tablet (Tylenol Extra Strength) 1,000 mg (2 x 500 mg) PO QID #0 tabs 10/06/24
apixaban 5 mg tablet (Eliquis) 2.5 mg (1/2 x 5 mg) PO BID Blood clot prevention/tx/afib #60 tabs 10/06/24
cefadroxil 500 mg capsule 500 mg PO BID infection prevention #14 caps 10/06/24
dexamethasone 4 mg tablet 4 mg PO BID inflammation #6 tabs 10/06/24
docusate sodium 100 mg capsule (Colace) 100 mg PO BID stool softner #1 cap 10/06/24
famotidine 20 mg tablet 20 mg PO HS GI prophylaxis #30 tabs 10/06/24
gabapentin 300 mg capsule 300 mg PO BID sleep/pain #14 caps 10/06/24
hydromorphone 2 mg tablet 2 - 4 mg (1 - 2 x 2 mg) PO Q6H PRN 1 tab moderate pain, 2 severe #30 tabs 10/06/24
magnesium hydroxide 400 mg/5 mL oral suspension (Milk of Magnesia) 30 ml PO HS PRN Constipation #1 mL 10/06/24
ondansetron 4 mg disintegrating tablet 4 mg PO Q6H PRN n/v #20 tabs 10/06/24
sennosides 8.6 mg tablet (Senokot) 17.2 mg (2 x 8.6 mg) PO BID laxative #2 tabs 10/06/24
Pending Results: No
[2024-10-06] MEDS: DILAUDID 4 MG PO ×2 (11:26→14:02)
--- NOTE | 2024-10-06 13:13 | PTCARENOTE ---
Patient admitted from PACU post right total knee replacement.The patient denies any pain.The mepilex dressing is intact without drainage.Vital signs are stable. Neurovascular assessment is within normal limits and ongoing. The patient has sensation
back to his ankles only.The patient is in his bed with the call kohli in place.
[2024-10-06] MEDS: PROZAC 20 MG PO (14:00)
[2024-10-06] MEDS: CRESTOR 10 MG PO (14:00)
[2024-10-06] MEDS: THIAMINE INJECTION 200 MG IV (14:03)
[2024-10-06] MEDS: FLOMAX 0.4 MG PO (14:20)
[2024-10-06] MEDS: ANCEF 5 IV (17:02)
[2024-10-06] MEDS: SERAX PO (20:00)
[2024-10-06] MEDS: BACTROBAN 2% OINTMENT 1 APPLIC NASAL (20:42)
[2024-10-06] MEDS: COLACE 100 MG PO (20:42)
[2024-10-06] MEDS: ULTRAM 50 MG PO (20:43)
[2024-10-06] MEDS: SENOKOT 17.2 MG PO (20:43)
[2024-10-06] MEDS: DECADRON 4 MG IV (20:45)
[2024-10-06] MEDS: ELIQUIS 2.5 MG PO (20:46)
[2024-10-06] MEDS: NEURONTIN 300 MG PO (20:46)
[2024-10-06] MEDS: PROTONIX 40 MG PO (20:46)
[2024-10-07] MEDS: ANCEF 5 IV (00:05)
[2024-10-07] MEDS: TYLENOL 650 MG PO ×2 (00:05→08:11)
[2024-10-07 02:55] VITALS: BP 137/80
[2024-10-07] MEDS: TYLENOL PO (04:40)
[2024-10-07 07:22] VITALS: BP 137/83
[2024-10-07] MEDS: COLACE 100 MG PO (08:11)
[2024-10-07] MEDS: ELIQUIS 2.5 MG PO (08:11)
[2024-10-07] MEDS: SENOKOT 17.2 MG PO (08:11)
[2024-10-07] MEDS: CRESTOR 10 MG PO (08:11)
[2024-10-07] MEDS: PROZAC 20 MG PO (08:11)
[2024-10-07] MEDS: CARDIZEM CD 240 MG PO (08:11)
[2024-10-07] MEDS: BACTROBAN 2% OINTMENT 1 APPLIC NASAL (08:12)
[2024-10-07] MEDS: ULTRAM 50 MG PO (08:12)
[2024-10-07] MEDS: DECADRON 4 MG IV (08:12)
[2024-10-07] MEDS: SERAX 10 MG PO (08:12)
[2024-10-07] MEDS: THIAMINE INJECTION 200 MG IV (08:12)
--- NOTE | 2024-10-07 08:30 | CM ---
Cm reviewed medical records.CM met with patient in room. Patient confirmed demographics. Patient does not have ahistory of VN, SNF. Patient has appropriate DME. Patent lives independently with who will provide support. Patient is active with
his PCP and uses [facility] for medication services.
PLAN: Home with outpatient PT at [facility].
--- NOTE | 2024-10-07 08:44 | W.PN.ORTHO ---
Today's Communication / Plan
-
d/c
Assessment
.
Distal Motor Intact: Yes
Dressing:
Clean, dry and intact.
Assessment:
Afib-Diltiazem--stable on tele
Pain control
Daily ETOH
-Dilaudid-additional pain control-Serax+ Gabapentin+Thiamine
-pain well controlled
Recent tobacco-Cefadroxil ppx
COPD
Hx recurrent asthmatic bronchitis
SAMY
-incentive spirometry
- O2 sats stable on RA
Balance and gait disturbance-fall precautions
Hx GIB-PPI
XYM-Ldopiw-yoqfjdp well
Plan
.
Surgery / Date: R J[facility]ON Collazo 10/06/24
DVT Prophylaxis: Other (Eliquis)
Activity:
Out of bed.
PT/OT
Discharge Plan: Home w/ Outpatient PT
Subjective
.
.:
Patient resting comfortably.
Vital Signs and Labs
.
Vital Signs and Labs:
Lab Results
09/12/24 12:48
09/12/24 12:48
Temp Pulse Resp BP Pulse Ox
97.7 F 61 16 137/83 96
10/07/24 07:22 10/07/24 07:22 10/07/24 07:22 10/07/24 07:22 10/07/24 07:22
Non-invasive Hgb result: 13.2
Physical Exam
-
HEENT: No pallor, cyanosis, or jaundice. Throat clear.
NECK: Supple. No JVD.
RESPIRATORY: Lungs clear to auscultation.
CVS: S1, S2 normal. RRR.� No murmur, rub or gallop.
ABDOMEN: Soft, non-tender. No distension. BS+/normal.
EXTREMITIES: strength equal, no calf pain with palpation
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 repairer resistance welding machines grossly intact
[2024-10-07 08:59] VITALS: BP 153/77; PULSE 75; O2SAT 96
[2024-10-07 10:08] VITALS: BP 111/74; PULSE 88; O2SAT 98
--- NOTE | 2024-10-07 10:14 | CM ---
Met with patient at bedside
IMM benefit explained; form signed @ 1000
will transport home
Plan: Discharge to home today w/outpatient therapy
[2024-10-07 11:05] VITALS: BP 113/69
== END 2024-10-07 11:44 | disposition home or self-care (01) | DRG 470 ==
LOC: 2 SOUTH 08:11
PROVIDERS: ADMITTING PHYSICIAN Specialist; FAMILY PHYSICIAN Physician Assistant; OTHER PHYSICIAN Physician Assistant; REFERRING PHYSICIAN Internal Medicine Cardiovascular Disease
PROC: 0SRC0J9 Replacement of Right Knee Joint with Synthetic Substitute, Cemented, Open Approach (ICD-10-PCS; 2024-10-06)
DX: M17.11 Unilateral primary osteoarthritis, right knee (principal); I10 Essential (primary) hypertension; E78.5 Hyperlipidemia, unspecified; I48.0 Paroxysmal atrial fibrillation; G47.33 Obstructive sleep apnea (adult) (pediatric); G25.0 Essential tremor; F32.A Depression, unspecified; E66.9 Obesity, unspecified; Z68.31 Body mass index [BMI] 31.0-31.9, adult; Z91.199 Patient's noncompliance with other medical treatment and regimen due to unspecified reason; Z79.01 Long term (current) use of anticoagulants
CPT/HCPCS: 36415; 73560; 80053; 83036; 85027; 87070; 97110; 97116; 97162; 97167; C1713; C1776

== ENCOUNTER 2024-10-12 18:32 | Emergency (ER) | payer MEDICARE, BC, SELFPAY ==
[2024-10-12 18:39] VITALS: BP 113/83
[2024-10-12] MEDS: TYLENOL 1000 MG PO (19:57)
[2024-10-12 20:07] LABS: ALT (SGPT) 64 U/L (0-50); AST (SGOT) 40 U/L (17-59); Albumin 3.2 g/dl (3.5-5.0); Alkaline Phosphatase 66 U/L (38-126); Blood Urea Nitrogen 24 mg/dl (9-20); Calcium 8.5 mg/dl (8.4-10.2); Carbon Dioxide 30 mmol/L (22-30); Chloride 101 mmol/L (98-107); Glucose 111 mg/dl (70-99); Potassium 3.9 mmol/L (3.5-5.1); Sodium 138 mmol/L (135-145); Total Bilirubin 1.2 mg/dl (0.2-1.3); Total Protein 6.1 g/dl (6.3-8.2); eGFR > 60.00
[2024-10-12 20:14] VITALS: BMI 31.0
[2024-10-12 20:24] VITALS: BP 124/77
[2024-10-12 20:32] LABS: % Basophils 0.2 % (0-2); % Eosinophils 0.3 % (0-6); % Immature Granulocytes 2.2 % (0-0.5); % Lymphocytes 22.8 % (20.5-51.1); % Monocytes 12.4 % (1.7-9.3); % Neutrophils 62.1 % (42.2-75.2); Absolute Eosinophils 0.1 10^3/uL (0-0.7); Absolute Immature Granulocytes 0.4 10^3/uL (0-0.05); Absolute Lymphocytes 4.1 10^3/uL (1.2-3.4); Absolute Monocytes 2.3 10^3/uL (0.1-0.6); Absolute Neutrophils 11.3 10^3/uL (1.4-6.5); Hematocrit 30.7 % (39.0-52.0); Hemoglobin 10.5 g/dL (13.0-18.0); Mean Corp Hgb Conc. 34.2 g/dL (33.0-37.0); Mean Corpuscular Volume 93.6 fL (80.0-94.0); Mean Platelet Volume 10.2 fL (7.4-10.4); Nucleated Red Blood Cells % 0.1 % (-); Platelet Count 237 10^3/uL (130-400); Red Blood Cell Count 3.28 10^6/uL (4.70-6.10); Red Cell Dist. Width 13.2 % (11.5-14.5); White Blood Cell Count 18.1 10^3/uL (4.8-10.8)
[2024-10-12 21:00] VITALS: BP 125/81
[2024-10-12 22:00] VITALS: BP 120/85
--- NOTE | 2024-10-12 22:36 | ED.GENMED ---
History of Present Illness
General
Chief Complaint: Fall
Time Seen by Provider: 10/12/24 20:34
History of Present Illness
History of Present Illness:
79-year-old male with history of paroxysmal A-fib on Eliquis, hypertension, hyperlipidemia presenting for evaluation of his right knee. Patient is status post right knee replacement on 10/[address] Collazo. Earlier today patient was in the
bathroom and became generally weak. He subsequently fell trying to get off the toilet and fell in between the tub and toilet. He was unable to get up which prompted to call ambulance. He denies any direct injury to the knee. Denies any
twisting of the knee. Notes and surgery he has had bruising to the right lower extremity and swelling. Swelling has overall improved, however bruising persists. He last saw his orthopedic doctor on Sunday, 5 days ago. Patient had Tylenol for
his knee pain, so denies any significant extremity pain at this time. Denies numbness or tingling to his extremity. Denies head injury or loss of consciousness. Notes that when he was feeling weak, denies syncope, chest pain, dizziness,
lightheadedness. Denies additional acute medical complaint
Past History
Past History
ED Past Medical History: Cancer (Basal cell, TIA), HTN, Hypercholesterolemia and Other (Diverticulitis)
ED Past Surgical History: Orthopedic and Other (Umbilical hernia repair)
Patient has exhibited threatening behavior?: No
PSI?: No
Social History
Tobacco: Non-smoker
Alcohol: None
Drug: None
Personal:
Living: with family
Employment: Employed
Family History
Family History: Hypertension
Phy Exam
Physical Exam
Physical Exam:
General: Well-appearing, no clinical signs of dehydration, nontoxic and in no acute distress
HEENT: protecting airway
Neck: appears supple
CV: Normal heart rate, regular rhythm
Resp: No accessory muscle use, no increased work of breathing, lungs clear to auscultation bilaterally
Abd: No distention
Extremities: Scattered diffuse ecchymosis to the right lower extremity with generalized swelling. Compartments are soft without significant tenderness on palpation. Distal sensation and pulses are intact. Incision is intact with no active
bleeding or drainage. Range of motion limited in extension at knee joint. No erythema or warmth
Neuro: alert, no focal neurologic deficit
: deferred
Rectal: deferred
Psych: Normal affect
Skin: Intact
Course
Orders/Labs/Results
Orders:
Orders
10/12/24 18:33
Knee, Right 4 or More Views [CR Knee- Right 4 Or More View*] Urgent
Comment:
Reason For Exam: fall post op knee replacement
10/12/24 19:34
Electrocardiogram (*1) Urgent
Reason for Study: Fatigue / Weakness
EKG- Treatment ONCE
10/12/24 19:45
CMP [Comprehensive Metabolic Panel] Urgent
Complete Blood Count/With Diff Urgent
10/12/24 19:53
Acetaminophen [Tylenol] 1,000 mg .ROUTE .STK-MED ONE
10/12/24 19:56
Acetaminophen [Tylenol] 1,000 mg PO NOW STA
Abnormal Lab Results
10/12/24
19:45
WBC 18.1 H 10^3/uL
(4.8-10.8)
RBC 3.28 L 10^6/uL
(4.70-6.10)
Hgb 10.5 L g/dL
(13.0-18.0)
Hct 30.7 L %
(39.0-52.0)
MCH 32.0 H pg
(27.0-31.0)
Abs Immat Gran (auto) 0.4 H 10^3/uL
(0-0.05)
Absolute Neuts (auto) 11.3 H 10^3/uL
(1.4-6.5)
Absolute Lymphs (auto) 4.1 H 10^3/uL
(1.2-3.4)
Absolute Monos (auto) 2.3 H 10^3/uL
(0.1-0.6)
Immature Gran % 2.2 H %
(0-0.5)
Monocytes % 12.4 H %
(1.7-9.3)
BUN 24 H mg/dl
(9-20)
Glucose 111 H mg/dl
(70-99)
ALT 64 H U/L
(0-50)
Total Protein 6.1 L g/dl
(6.3-8.2)
Albumin 3.2 L g/dl
(3.5-5.0)
10/12/24 19:45
10/12/24 19:45
Vital Signs
Initial and Last Documented VS:
Initial Vital Signs
Temp Pulse Resp BP Pulse Ox
97.6 F 70 18 113/83 100
10/12/24 18:39 10/12/24 18:39 10/12/24 18:39 10/12/24 18:39 10/12/24 18:39
Last Documented Vital Signs
Temp Pulse Resp BP Pulse Ox
97.6 F 70 18 113/83 96
10/12/24 18:39 10/12/24 18:39 10/12/24 18:39 10/12/24 18:39 10/12/24 20:24
MDM/Problems Addressed
MDM/Problems Addressed:
79-year-old male on [facility], status post right knee replacement, presenting after a fall after feeling generally weak. Vital signs on arrival are normal
On exam patient is resting comfortably, no acute distress or discomfort. Reassuring pulmonary and cardiac exam. EKG obtained, nonischemic. Regarding patient's fall, denies any syncopal or presyncopal symptoms, notes that he was just feeling
generally weak. Suspect secondary to recent surgery and overall deconditioning. No present hemodynamic instability. Regarding his right lower extremity, patient is concerned given his fall, bleeding underlying his dressing. Dressing removed and
sutures are intact. No active bleeding. Patient however does have diffuse ecchymosis to his leg which she notes is not new, has been developing since his surgery. Suspect secondary to a coagulation status. Compartments are soft without concern
for compartment syndrome and pain is controlled. Distal sensation and pulses are intact, without concern for neurovascular compromise. Hemoglobin is 10.5, which has dropped from 14.8 a month ago. Without any present concern for hemorrhage or
transfusion needs. No infectious findings on exam. Did send pictures of patient's leg to orthopedics on-call, Dr. Landon, who notes if no acute findings and patient can walk, okay to follow-up in the office tomorrow. Will assess patient's ambulation
23:10 -patient ambulated without difficulty. Plan for discharge with follow-up with orthopedics tomorrow. Will replace patient's bandage. Return precautions discussed and patient and verbalized understanding
*EKG
Interpreted by ED Provider?: Yes
EKG Intrepretation Date: 10/12/24
EKG Intrepretation Time: 22:51
Interpretation: normal
Heart Rate: 79
Rate: normal
Rhythm: a-fib
[place]: normal axis
QRS Pattern: normal QRS
Ischemia: no ischemia
*Critical Care Note
Total Time (30-74mins, 75-104mins- exclusive of procedures): Not Applicable
ED Attending Note
-
Portions of this chart may have been created with voice recognition software.� Occasional wrong word or��sound alike� substitutions may have occurred due to the inherent limitations of voice recognition software.
Discharge Plan
Departure
Prescriptions:
No Action
cholecalciferol (vitamin D3) [Vitamin D3] 1,000 UNIT capsule
1,000 unit PO DAILY
silodosin 8 MG capsule
8 mg PO DAILY 0RF
diltiazem HCl 240 mg Capsule,Extended Release 24 Hr
240 mg PO DAILY
Patient Comments:
02/12/24: Patient unsure if he takes this medication, last filled 01/27/24 for 30 tablets
amlodipine 2.5 mg Tablet
2.5 mg PO DAILY
Patient Comments:
02/12/24: Patient unsure if he takes this medication, last filled 07/08/23 for 90 tablets
tamsulosin 0.4 mg Capsule
0.4 mg PO DAILY
rosuvastatin 10 mg Tablet
10 mg PO DAILY
diazepam 5 MG tablet
5 mg PO DAILYPRN PRN (Reason: ANXIETY/SLEEP)
Patient Comments:
02/12/24: last filled 04/13/22 for 30 tablets over 30 days per PDMP.
tadalafil [Cialis] 10 mg Tablet
10 mg PO DAILY PRN (Reason: ED)
fluoxetine
1 tab PO DAILY
Rx Instructions:
pt unsure of dosage
mupirocin 2 % ointment
1 applic intranasal BID Qty: 1 0RF
Patient Comments:
last dose was this am- pt started this on Sunday
docusate sodium [Colace] 100 mg capsule
100 mg PO BID Qty: 1 0RF
cefadroxil 500 mg capsule
500 mg PO BID Qty: 14 0RF
Rx Instructions:
*Take w/ food
*Take w/ probiotic
*POST-OP USE
famotidine 20 mg tablet
20 mg PO HS Qty: 30 0RF
Rx Instructions:
post-op
dexamethasone 4 mg tablet
4 mg PO BID Qty: 6 0RF
Rx Instructions:
take with food
post-op use only
Saccharomyces boulardii [Florastor] 250 mg capsule
250 mg PO BID Qty: 1 0RF
gabapentin 300 mg capsule
300 mg PO BID Qty: 14 0RF
Rx Instructions:
*POST-OP USE ONLY
sennosides [Senokot] 8.6 mg tablet
17.2 mg PO BID Qty: 2 0RF
hydromorphone 2 mg tablet
2 - 4 mg PO Q6H PRN (Reason: 1 tab moderate pain, 2 severe) Qty: 30 0RF
Rx Instructions:
Dx orthopedic surgery
Ongoing therapy
magnesium hydroxide [Milk of Magnesia] 400 mg/5 mL suspension
30 ml PO HS PRN (Reason: Constipation) Qty: 1 0RF
ondansetron 4 mg tablet,disintegrating
4 mg PO Q6H PRN (Reason: n/v) Qty: 20 0RF
Rx Instructions:
take 1/2h b/f pain med if recurrent nausea
allow to dissolve in mouth w/o water
acetaminophen [Tylenol Extra Strength] 500 mg Tablet
1,000 mg PO QID Qty: 0 0RF
Eliquis 5 mg Tablet
2.5 mg PO BID Qty: 60 0RF
Rx Instructions:
2.5mg (1/2tab) twice a day--RESUME 5MG TWICE ADAY DOSE ON 10/09
Referrals:
UNKNOWN - PT DOES,NOT KNOW [Family Provider] -
Interventions
Interventions:
*Risk Screen - Suicide Last Done: 10/12/24 18:38
*General Assessment Last Done: 10/12/24 18:38
*Neglect/Abuse Screening Last Done: 10/12/24 18:38
*ED- Fall Risk Assessment Last Done: 10/12/24 20:14
*ED COVID-19 Vaccine History Last Done: 10/12/24 18:38
ED-Musculoskeletal Assessment Last Done: 10/12/24 20:14
ED- Neurological Assessment Last Done: 10/12/24 20:14
ED-Skin Assessment Last Done: 10/12/24 20:14
Discharge Date and Time
Print Language: [id number]
== END 2024-10-13 00:22 | disposition home or self-care (01) ==
LOC: EMR 18:32
PROVIDERS: EMERGENCY PHYSICIAN Student in an Organized Health Care Education/Training Program
DX: G89.18 Other acute postprocedural pain (principal); M25.561 Pain in right knee; L76.32 Postprocedural hematoma of skin and subcutaneous tissue following other procedure; I48.0 Paroxysmal atrial fibrillation; I10 Essential (primary) hypertension; E78.00 Pure hypercholesterolemia, unspecified; Z79.01 Long term (current) use of anticoagulants; Z82.49 Family history of ischemic heart disease and other diseases of the circulatory system; Z86.73 Personal history of transient ischemic attack (TIA), and cerebral infarction without residual deficits; Z96.651 Presence of right artificial knee joint
CPT/HCPCS: 99283; 73564; 80053; 85025; 93005

== ENCOUNTER 2024-10-15 10:49 | Outpatient (RCR) | payer MEDICARE, BC, SELFPAY | END 2024-10-15 23:59 | disposition home or self-care (01) | LOC: RPT 10:49 | PROVIDERS: ATTENDING PHYSICIAN Specialist; FAMILY PHYSICIAN Physician Assistant | DX: Z47.1 Aftercare following joint replacement surgery (principal); Z96.651 Presence of right artificial knee joint; M25.561 Pain in right knee; R26.2 Difficulty in walking, not elsewhere classified; Z73.6 Limitation of activities due to disability; M62.81 Muscle weakness (generalized); R26.89 Other abnormalities of gait and mobility | CPT/HCPCS: 97010; 97110; 97161 ==

== ENCOUNTER 2024-10-30 09:51 | Emergency (ER) | payer MEDICARE, BC, SELFPAY ==
[2024-10-30] VITALS (7 sets, daily range): BP systolic 105–151; BP diastolic 75–87; PULSE 90–120; BMI 29.5
[2024-10-30 10:26] LABS: Hematocrit 32.9 % (39.0-52.0); Hemoglobin 10.7 g/dL (13.0-18.0); Mean Corp Hgb Conc. 32.5 g/dL (33.0-37.0); Mean Corpuscular Volume 98.5 fL (80.0-94.0); Mean Platelet Volume 9.8 fL (7.4-10.4); Platelet Count 264 10^3/uL (130-400); Red Blood Cell Count 3.34 10^6/uL (4.70-6.10); Red Cell Dist. Width 14.2 % (11.5-14.5); White Blood Cell Count 8.1 10^3/uL (4.8-10.8)
[2024-10-30 10:33] LABS: INR 1.15
[2024-10-30 10:34] LABS: APTT 32.2 Sec (23.4-35.0)
[2024-10-30 10:38] LABS: ALT (SGPT) 14 U/L (0-50); AST (SGOT) 17 U/L (17-59); Albumin 3.6 g/dl (3.5-5.0); Alkaline Phosphatase 81 U/L (38-126); Blood Urea Nitrogen 15 mg/dl (9-20); Calcium 9.2 mg/dl (8.4-10.2); Carbon Dioxide 28 mmol/L (22-30); Chloride 107 mmol/L (98-107); Estimated Creatinine Clearance 78 ml/min; Glucose 111 mg/dl (70-99); Potassium 3.9 mmol/L (3.5-5.1); Sodium 141 mmol/L (135-145); Total Bilirubin 0.9 mg/dl (0.2-1.3); Troponin I < 0.012 ng/ml; eGFR > 60.00
--- NOTE | 2024-10-30 10:41 | ED.GENMED ---
History of Present Illness
General
Chief Complaint: Fainting Sensation
Source: patient
Exam Limitations: none
Time Seen by Provider: 10/30/24 10:39
Nursing documentation reviewed up to this point in time: agreed with
History of Present Illness
History of Present Illness:
Patient is a 79-year-old male with past medical history of diverticulitis, A-fib on [facility], hypertension hyperlipidemia TIA who presents to the ER for evaluation of dizziness. Patient reports he got up this morning to sit up out of bed around 6:30
AM and the room was spinning. He reports he had to lay back down. This happened very briefly yesterday but resolved. He denies any associated headache nausea vomiting fever chills. He denies any chest pain or shortness of breath. He does report
he had a right knee replacement several weeks ago on [facility]. He denies any redness to this knee denies knee pain.
He currently is asymptomatic.
Past History
Past History
ED Past Medical History: Cancer (Basal cell, TIA), HTN, Hypercholesterolemia and Other (Diverticulitis)
ED Past Surgical History: Orthopedic and Other (Umbilical hernia repair)
Patient has exhibited threatening behavior?: No
PSI?: No
Social History
Tobacco: Non-smoker
Alcohol: None
Drug: None
Personal:
Living: with family
Employment: Employed
Family History
Family History: Hypertension
Review of Systems
Review of Systems
Allergies reviewed?: Yes
All Other Systems: ROS reviewed and negative except as documented in HPI and ROS
Constitutional: Reports no symptoms; Denies fever, fatigue or chills
EENT: Reports no symptoms
Respiratory: Denies cough or trouble breathing
Cardiac: Reports no symptoms
ABD/GI: Reports no symptoms
: Reports no symptoms
Skin: Reports no symptoms
Neurological: Reports dizzy
Phy Exam
General Physical Exam
General Presentation: no apparent distress
General age: appears stated age
General Skin: warm and dry
General Habitus: elderly
General Mental: alert
General Hydration: appears well hydrated
ENT Exam
ENT Exam: EOMI and other
Eye Exam
Eye Exam: PERRL, EOMI and other (No nystagmus bilaterally)
Cardiovascular Exam
Cardiovascular Exam: regular rate/rhythm, no murmur and normal peripheral pulses
Pulmonary Exam
Pulmonary Exam: lungs clear and no respiratory distress
Neurological Exam
Neurological Exam: alert and oriented x3
Cerebellar
Cerebellar Function: normal finger to nose
Musculoskeletal Exam
Musculoskeletal Exam: full ROM and other (rle with strong pulses your placement site looks well without any evidence of infection no erythema strong distal pulses no calf tenderness )
Skin Exam
Skin Exam: normal color and warm/dry
Psychiatric Exam
Psychiatric Exam: normal mood/affect
Course
Orders/Labs/Results
Orders:
Orders
10/30/24
Electrocardiogram (*1) Stat
Reason for Study: Chest Pain
Comment: DONE
10/30/24 10:02
CMP [Comprehensive Metabolic Panel] Urgent
Complete Blood Count/With Diff Urgent
D-Dimer Urgent
PT/INR [Prothrombin Time] Urgent
PTT Urgent
Troponin I Urgent
10/30/24 11:05
CT Head W/o Iv Contrast Urgent
Comment:
Reason For Exam: new onset vertigo
Physical Therapy Consult [Pt Eval And Treat] Urgent
Treatment: new onset vertigo eval
Activity Level: Ambulate
Abnormal Lab Results
10/30/24
10:02
RBC 3.34 L 10^6/uL
(4.70-6.10)
Hgb 10.7 L g/dL
(13.0-18.0)
Hct 32.9 L %
(39.0-52.0)
MCV 98.5 H fL
(80.0-94.0)
MCH 32.0 H pg
(27.0-31.0)
MCHC 32.5 L g/dL
(33.0-37.0)
Absolute Monos (auto) 0.8 H 10^3/uL
(0.1-0.6)
Monocytes % 9.6 H %
(1.7-9.3)
PT 15.0 H Sec
(11.4-14.6)
D-Dimer 6.02 H ug/mlFEU
(0.00-0.50)
Glucose 111 H mg/dl
(70-99)
10/30/24 10:02
10/30/24 10:02
Vital Signs
Initial and Last Documented VS:
Initial Vital Signs
Temp Pulse Resp Pulse Ox
98.1 F 67 18 99
10/30/24 09:54 10/30/24 09:54 10/30/24 09:54 10/30/24 09:54
Last Documented Vital Signs
Temp Pulse Resp BP Pulse Ox
98.1 F 96 13 132/87 96
10/30/24 09:54 10/30/24 14:03 10/30/24 13:36 10/30/24 13:36 10/30/24 12:21
Electrical Technology Instructor consulted with Physician
Electrical Technology Instructor consulted with physician?: Yes
Name of Physician Consulted: doris
MDM/Problems Addressed
Differential Diagnosis Includes:
Not limited to benign positional vertigo, vertebrobasilar insufficiency/stroke
MDM/Problems Addressed:
As documented patient is a 79-year-old male who presented to the ER for evaluation of dizziness vertigo when he got up out of bed this morning. Yesterday he had no associated chest pain shortness of breath.
He presents nontoxic awake alert no acute distress prior to my exam patient had labs including a D-dimer however patient had no complaints of shortness of breath no clinical concerns for PE. His knee replacement site looks well without any
evidence of infection and he is on Eliquis which significant decrease his risk of DVT.
Case reviewed with DR Clark.
Patient was eval by physical therapy symptoms are consistent with BPV ;patient after maneuvers feeling much better sitting up awake alert eating he ambulated in the ER without any symptoms. Patient much better not consistent with stroke/Central
cause of vertigo. Patient has no complaints of chest pain shortness of breath no recent illness fever chills his white count is normal his hemoglobin is 10.7(baseline since September), his electrolytes and renal functions are normal. Troponin was done
prior to my exam though he had no chest pain or shortness of breath this is normal. ct head neg. (pt had mentioned to the PT that he did have a fall and may have hit his head after his surgery in September however has had no headaches since).
After physical therapy ambulated patient and patient was sitting up eating his heart rate is minimally elevated around 100�107. Physical therapist question A-fib however patient is normal sinus rhythm on the monitor with PACs however very
well-appearing asymptomatic stable for discharge home.
Will d/c w/ Meclizine.
Chronic conditions affecting care:
afib on eliquis
*Radiology
Radiology exam reviewed: radiology read reviewed
*Pulse Oximetry
Patient hypoxic: no
*EKG
Interpreted by ED Provider?: Yes
Comparison EKG: changes noted (pt now in NSR )
Heart Rate: 73
Rate: normal
Rhythm: sinus
*Critical Care Note
Total Time (30-74mins, 75-104mins- exclusive of procedures): Not Applicable
ED Attending Note
-
Portions of this chart may have been created with voice recognition software.� Occasional wrong word or��sound alike� substitutions may have occurred due to the inherent limitations of voice recognition software.
Discharge Plan
Departure
Patient Disposition: Home (Routine Discharge)
Date of Disposition: 10/30/24
Time of Disposition: 14:20
Patient with high blood pressure during this ER visit?: Yes
Condition: Fair
Covid-19: Not Applicable
Discharge Problem:
Vertigo
Instructions: Vertigo - ED discharge instructions, BLOOD PRESSURE
Prescriptions:
New
meclizine 25 mg tablet
25 mg PO TID PRN (Reason: motion sickness) Qty: 14 0RF
No Action
cholecalciferol (vitamin D3) [Vitamin D3] 1,000 UNIT capsule
1,000 unit PO DAILY
silodosin 8 MG capsule
8 mg PO DAILY 0RF
diltiazem HCl 240 mg Capsule,Extended Release 24 Hr
240 mg PO DAILY
Patient Comments:
02/12/24: Patient unsure if he takes this medication, last filled 01/27/24 for 30 tablets
amlodipine 2.5 mg Tablet
2.5 mg PO DAILY
Patient Comments:
02/12/24: Patient unsure if he takes this medication, last filled 07/08/23 for 90 tablets
tamsulosin 0.4 mg Capsule
0.4 mg PO DAILY
rosuvastatin 10 mg Tablet
10 mg PO DAILY
diazepam 5 MG tablet
5 mg PO DAILYPRN PRN (Reason: ANXIETY/SLEEP)
Patient Comments:
02/12/24: last filled 04/13/22 for 30 tablets over 30 days per PDMP.
tadalafil [Cialis] 10 mg Tablet
10 mg PO DAILY PRN (Reason: ED)
fluoxetine
1 tab PO DAILY
Rx Instructions:
pt unsure of dosage
mupirocin 2 % ointment
1 applic intranasal BID Qty: 1 0RF
Patient Comments:
last dose was this am- pt started this on Sunday
docusate sodium [Colace] 100 mg capsule
100 mg PO BID Qty: 1 0RF
cefadroxil 500 mg capsule
500 mg PO BID Qty: 14 0RF
Rx Instructions:
*Take w/ food
*Take w/ probiotic
*POST-OP USE
famotidine 20 mg tablet
20 mg PO HS Qty: 30 0RF
Rx Instructions:
post-op
dexamethasone 4 mg tablet
4 mg PO BID Qty: 6 0RF
Rx Instructions:
take with food
post-op use only
Saccharomyces boulardii [Florastor] 250 mg capsule
250 mg PO BID Qty: 1 0RF
gabapentin 300 mg capsule
300 mg PO BID Qty: 14 0RF
Rx Instructions:
*POST-OP USE ONLY
sennosides [Senokot] 8.6 mg tablet
17.2 mg PO BID Qty: 2 0RF
hydromorphone 2 mg tablet
2 - 4 mg PO Q6H PRN (Reason: 1 tab moderate pain, 2 severe) Qty: 30 0RF
Rx Instructions:
Dx orthopedic surgery
Ongoing therapy
magnesium hydroxide [Milk of Magnesia] 400 mg/5 mL suspension
30 ml PO HS PRN (Reason: Constipation) Qty: 1 0RF
ondansetron 4 mg tablet,disintegrating
4 mg PO Q6H PRN (Reason: n/v) Qty: 20 0RF
Rx Instructions:
take 1/2h b/f pain med if recurrent nausea
allow to dissolve in mouth w/o water
acetaminophen [Tylenol Extra Strength] 500 mg Tablet
1,000 mg PO QID Qty: 0 0RF
Eliquis 5 mg Tablet
2.5 mg PO BID Qty: 60 0RF
Rx Instructions:
2.5mg (1/2tab) twice a day--RESUME 5MG TWICE ADAY DOSE ON 10/09
Referrals:
Krish Cole PA [Family Provider] -
Jaret Jones MD [Active] -
Activity Restrictions/Additional Instructions:
As discussed you may take meclizine as needed for vertigo.
Stay well-hydrated.
Closely follow-up with your family doctor in the next 2 days for reevaluation of your symptoms and return if any worsening of symptoms. In addition please follow-up with neurology for further reevaluation
Interventions
Interventions:
*Risk Screen - Suicide Last Done: 10/30/24 09:54
*General Assessment Last Done: 10/30/24 09:54
*Neglect/Abuse Screening Last Done: 10/30/24 09:54
ED- Cardiac Assessment Last Done: 10/30/24 10:26
ED- Neurological Assessment Last Done: 10/30/24 10:26
Discharge Date and Time
Print Language: SERBIAN
[2024-10-30 10:43] LABS: D-Dimer 6.02 ug/mlFEU (0.00-0.50)
[2024-10-30 11:12] LABS: % Basophils 0.4 % (0-2); % Eosinophils 0.6 % (0-6); % Immature Granulocytes 0.1 % (0-0.5); % Lymphocytes 38.4 % (20.5-51.1); % Monocytes 9.6 % (1.7-9.3); % Neutrophils 50.9 % (42.2-75.2); Absolute Eosinophils 0.1 10^3/uL (0-0.7); Absolute Lymphocytes 3.1 10^3/uL (1.2-3.4); Absolute Monocytes 0.8 10^3/uL (0.1-0.6); Absolute Neutrophils 4.1 10^3/uL (1.4-6.5); Nucleated Red Blood Cells % 0 % (-)
== END 2024-10-30 14:57 | disposition home or self-care (01) ==
LOC: EMR 09:51
PROVIDERS: EMERGENCY PHYSICIAN Emergency Medicine; FAMILY PHYSICIAN Physician Assistant
DX: R42 Dizziness and giddiness (principal); I48.91 Unspecified atrial fibrillation; I10 Essential (primary) hypertension; E78.00 Pure hypercholesterolemia, unspecified; Z79.01 Long term (current) use of anticoagulants; Z86.73 Personal history of transient ischemic attack (TIA), and cerebral infarction without residual deficits; Z96.651 Presence of right artificial knee joint
CPT/HCPCS: 99284; 70450; 80053; 84484; 85025; 85379; 85610; 85730; 93005

== ENCOUNTER 2024-11-03 08:53 | Outpatient (RCR) | payer MEDICARE, BC, SELFPAY | END 2024-11-03 23:59 | disposition home or self-care (01) | LOC: RPT 08:53 | PROVIDERS: ATTENDING PHYSICIAN Specialist; FAMILY PHYSICIAN Physician Assistant | DX: Z47.1 Aftercare following joint replacement surgery (principal); Z96.651 Presence of right artificial knee joint; Z73.6 Limitation of activities due to disability; M25.561 Pain in right knee; R26.2 Difficulty in walking, not elsewhere classified; M62.81 Muscle weakness (generalized); R26.89 Other abnormalities of gait and mobility | CPT/HCPCS: 97010; 97110 ==

== ENCOUNTER 2024-11-04 21:25 | Inpatient (IN) | payer MEDICARE, BC, SELFPAY ==
[2024-11-04] VITALS (53 sets, daily range): BP systolic 75–145; BP diastolic 49–106; BMI 28.8; BMI 28.6
--- NOTE | 2024-11-04 18:26 | ED.GENMED ---
History of Present Illness
General
Chief Complaint: Rectal Bleeding
Source: patient, records and ambulance crew
Exam Limitations: none
Time Seen by Provider: 11/04/24 18:25
Nursing documentation reviewed up to this point in time: agreed with
History of Present Illness
History of Present Illness:
79-year-old male PAF prior TIA on Eliquis hypertension presents with painless rectal bleeding onset a few hours ago woke up passing blood EMS was called, apparently is passing bright red blood from his rectum no falls no syncope other he does feel
dizzy
Past History
Past History
ED Past Medical History: Cancer (Basal cell, TIA), CVA, HTN, Hypercholesterolemia and Other (Diverticulitis)
ED Past Surgical History: Orthopedic and Other (Umbilical hernia repair)
Patient has exhibited threatening behavior?: No
PSI?: No
Social History
Tobacco: Non-smoker
Alcohol: None
Drug: None
Personal:
Living: with family
Employment: Employed
Family History
Family History: Hypertension
Review of Systems
Review of Systems
All Other Systems: Not applicable
Constitutional: Reports fatigue; Denies fever
EENT: Reports no symptoms
Respiratory: Reports no symptoms
Cardiac: Reports no symptoms; Denies chest pain or palpitations
ABD/GI: Reports bloody stools; Denies abdominal pain
: Reports no symptoms
Musculoskeletal: Reports no symptoms
Skin: Reports no symptoms
Neurological: Reports dizzy and weakness
Endocrine: Reports no symptoms
Psychiatric: Reports no symptoms
Phy Exam
Physical Exam
Physical Exam:
Physical Exam
General: Slightly confused but cooperative 79 male
Neck: No pallor
Heart: Regular
Lungs: no acute respiratory distress. clear bilaterally
Abdomen: Soft minimal suprapubic
Rectal: Maroon mixed with bright red blood
Neuro: alert and oriented. no focal neurological deficits
Skin: no rash
Psychiatric: Cooperative
Extremities: no edema.
Course
Orders/Labs/Results
Orders:
Orders
11/04/24 18:33
Cardiac Monitoring- Treatment ONCE
IV Insert/Care/Rem.- Treatment PRN
11/04/24 18:34
Electrocardiogram (*1) Stat
Reason for Study: Other
Other Reason for Exam: GI Bleed
CT Abd/pelvis Angio W/wo Iv Urgent
Comment:
Reason For Exam: painless recal bleed
CT Head W/o Iv Contrast Urgent
Comment:
Reason For Exam: confusion
EKG- Treatment ONCE
11/04/24 18:36
Alcohol Urgent
Complete Blood Count/With Diff Urgent
Comprehensive Metabolic Panel Urgent
11/04/24 18:40
Type+Screen Urgent
11/04/24 20:29
Hemoglobin Urgent
CR Chest Portable - 1 View Urgent
Comment:
Reason For Exam: icu admitsion
Reason Study Needs to be Portable: Patient Unstable
11/04/24 20:33
* Blood Bank Products Urgent
Blood Bank Products: *Packed RBC Leuko(PRBC's)
Quantity: 2
Transfuse Today: Yes
Reason: Bleeding
11/04/24 20:42
Protime/PTT Urgent
11/04/24 20:51
Prothrombin Complex(Pcc),Human [Kcentra] 2,022 unit Empty Viaflex Container 100 ml [Viaflex Empty Container] 80 ml IV NOW
Does patient have a dx of serious acute active bleeding?: Yes
Does patient have prior history of HIT?: No
Urgent surgery/invasive procedure planned in next 6 hours?: No
11/04/24 20:53
Emergent Blood Release Stat
Blood Bank Products: *Packed RBC Leuko(PRBC's)
Quantity: 2
Reason: Bleeding
A Blood Permit is Required for all Blood.
FOR LAB PICKUP:
Take order sheet to Blood Bank to warehouse order picker blood products in validated cooler
Immediately return to patient care area.
Blood products released by
Blood Products picked up by
Sent to
Date and Time
IV Insert/Care/Rem.- Treatment PRN
11/04/24 20:57
Admit/Transfer Patient As Directed
Co-Sign Provider:
Level of Care: Inpatient admission
Assign to:: ICU
Physician / Group: james
Diagnosis: hemorrhagic shock
Reason for Hospitalization: hemorrhagic shock
Expected length of stay greater than two midnights?: Yes
ELOS- Estimated Length of Stay in days: 2
I certify the patient meets the requirements for IP care: Yes
PRN Pain Medication Management As Directed
May give lesser potent ordered pain med per pt: Yes
preference::
Protocol:: Medication orders for pain may be administered in a
manner that supports deferring to patient preference
when the pt is:
- Requesting an ordered lesser potent pain medication.
Least to most potent pain medications are defined
as: acetaminophen < NSAID < tramadol < opioids
(morphine, oxycodone, hydromorphone).
- Requesting a lesser dose of the same medication IF
ORDERED.
- Requesting a less intrusive route of administration
if both routes are prescribed by the provider (PO <
IV).
11/04/24 20:58
Code Status As Directed
Resuscitation Status: Full Code
11/04/24 21:14
Consult Interventional Radiology [IRAD CONSULT] Urgent
Consulting Provider: Boris Madera
Was physician already notified: Yes
Procedure being ordered, including laterality if applicable: angio
Acknowledgement that appropriate orders are entered: N/A
11/04/24 21:17
CBC/With Diff [Complete Blood Count/With Diff] Stat
Abnormal Lab Results
11/04/24 11/04/24 11/04/24
18:36 18:40 20:29
WBC
RBC 3.35 L 10^6/uL
(4.70-6.10)
Hgb 10.7 L g/dL 9.2 L g/dL
(13.0-18.0) (13.0-18.0)
Hct 32.6 L %
(39.0-52.0)
MCV 97.3 H fL
(80.0-94.0)
MCH 31.9 H pg
(27.0-31.0)
MCHC 32.8 L g/dL
(33.0-37.0)
Abs Immat Gran (auto)
Absolute Neuts (auto) 6.7 H 10^3/uL
(1.4-6.5)
Absolute Monos (auto) 1.1 H 10^3/uL
(0.1-0.6)
Monocytes % 10.7 H %
(1.7-9.3)
PT
Chloride 109 H mmol/L
(98-107)
Glucose 142 H mg/dl
(70-99)
Crossmatch IS Only See Detail
11/04/24 11/04/24
20:42 21:17
WBC 13.3 H 10^3/uL
(4.8-10.8)
RBC 2.90 L 10^6/uL
(4.70-6.10)
Hgb 9.4 L g/dL
(13.0-18.0)
Hct 27.5 L %
(39.0-52.0)
MCV 94.8 H fL
(80.0-94.0)
MCH 32.4 H pg
(27.0-31.0)
MCHC
Abs Immat Gran (auto) 0.1 H 10^3/uL
(0-0.05)
Absolute Neuts (auto) 8.5 H 10^3/uL
(1.4-6.5)
Absolute Monos (auto) 1.3 H 10^3/uL
(0.1-0.6)
Monocytes % 9.6 H %
(1.7-9.3)
PT 18.6 H Sec
(11.4-14.6)
Chloride
Glucose
Crossmatch IS Only
11/04/24 21:17
11/04/24 18:36
Vital Signs
Initial and Last Documented VS:
Initial Vital Signs
Temp Pulse Resp BP Pulse Ox
99.7 F 108 28 103/52 100
11/04/24 18:26 11/04/24 18:26 11/04/24 18:26 11/04/24 18:26 11/04/24 18:26
Last Documented Vital Signs
Temp Pulse Resp BP Pulse Ox
99.7 F 104 23 96/70 97
11/04/24 18:26 11/04/24 19:50 11/04/24 19:50 11/04/24 19:50 11/04/24 19:50
MDM/Problems Addressed
Differential Diagnosis Includes:
Diverticulitis hemorrhoidal bleed infectious colitis anticoagulated
Confusion prior TIA perhaps recrudescence doubt intracerebral
MDM/Problems Addressed:
Painless rectal bleeding confusion
Chronic conditions affecting care:
TIA, A-fib anticoagulated
Acute Exacerbation and/or Progression of Chronic Illness:
TIA A-fib anticoagulated
*Radiology
Radiology exam reviewed: radiology read reviewed
*Pulse Oximetry
Patient hypoxic: no
*EKG
Interpreted by ED Provider?: Yes
Interpretation: abnormal
Comparison EKG: no comparison EKG present
Heart Rate: 105
Rhythm: sinus
Ischemia: non-specific ST changes
*Rail Bonder Interpretation
Rate: tachycardiac
Interpretation: abnormal
Heart Rate: 108
Rhythm: sinus
*Critical Care Note
Total Time (30-74mins, 75-104mins- exclusive of procedures): 40
Data Reviewed
Review of Other/Old Records Reveals: Labs, Records and Discharge Summary
Source: patient
Update Note
Update Note:
830, CT reviewed, positive for active bleeding prior colonoscopy reviewed, blood pressure transient drop to the 70s I did receive verbal consent for transfusion from the patient and his spouse reviewed the process for reversing his coagulopathy does
not have a valve, has PAF with a prior TIA, did send message to orthopedics he is 29 days from a total knee, his glass smoother gastroenterology interventional radiology and the hospitalist
Will continue aggressive resuscitation, follow closely
930 patient blood pressure improved mental status improved after Kcentra liter saline and 2 units of packed cells will follow closely
ED Attending Note
-
Portions of this chart may have been created with voice recognition software.� Occasional wrong word or��sound alike� substitutions may have occurred due to the inherent limitations of voice recognition software.
Discharge Plan
Departure
Patient Disposition: Admit
Date of Disposition: 11/04/24
Time of Disposition: 21:28
Admit to: ICU
Presentation/result/management discussed w/ accepting MD/DO: Hospitalist
Condition: Serious
Covid-19: Not Applicable
Discharge Problem:
Paroxysmal atrial fibrillation, Acute lower gastrointestinal bleeding
Interventions
Interventions:
*Risk Screen - Suicide Last Done: 11/04/24 18:41
*General Assessment Last Done: 11/04/24 18:41
*Neglect/Abuse Screening Last Done: 11/04/24 18:41
*ED- Fall Risk Assessment Last Done: 11/04/24 18:41
*ED COVID-19 Vaccine History Last Done: 11/04/24 18:41
AE-Hwikxf-[id number] Assessment Last Done: 11/04/24 18:41
ED- Cardiac Assessment Last Done: 11/04/24 18:41
ED- Pulmonary Assessment Last Done: 11/04/24 18:41
[2024-11-04 18:42] LABS: % Basophils 0.4 % (0-2); % Eosinophils 0.2 % (0-6); % Immature Granulocytes 0.4 % (0-0.5); % Lymphocytes 25.1 % (20.5-51.1); % Monocytes 10.7 % (1.7-9.3); % Neutrophils 63.2 % (42.2-75.2); Absolute Lymphocytes 2.7 10^3/uL (1.2-3.4); Absolute Monocytes 1.1 10^3/uL (0.1-0.6); Absolute Neutrophils 6.7 10^3/uL (1.4-6.5); Hematocrit 32.6 % (39.0-52.0); Hemoglobin 10.7 g/dL (13.0-18.0); Mean Corp Hgb Conc. 32.8 g/dL (33.0-37.0); Mean Corpuscular Hgb 31.9 pg (27.0-31.0); Mean Corpuscular Volume 97.3 fL (80.0-94.0); Nucleated Red Blood Cells % 0 % (-); Platelet Count 355 10^3/uL (130-400); Red Blood Cell Count 3.35 10^6/uL (4.70-6.10); Red Cell Dist. Width 13.4 % (11.5-14.5); White Blood Cell Count 10.7 10^3/uL (4.8-10.8)
[2024-11-04 18:55] LABS: ALT (SGPT) 14 U/L (0-50); AST (SGOT) 17 U/L (17-59); Albumin 3.8 g/dl (3.5-5.0); Alcohol None Detected; Alkaline Phosphatase 78 U/L (38-126); Blood Urea Nitrogen 15 mg/dl (9-20); Calcium 9.6 mg/dl (8.4-10.2); Carbon Dioxide 25 mmol/L (22-30); Chloride 109 mmol/L (98-107); Estimated Creatinine Clearance 62 ml/min; Glucose 142 mg/dl (70-99); Potassium 4.2 mmol/L (3.5-5.1); Sodium 143 mmol/L (135-145); Total Bilirubin 0.8 mg/dl (0.2-1.3); Total Protein 7.6 g/dl (6.3-8.2); eGFR > 60.00
[2024-11-04 20:42] LABS: Hemoglobin 9.2 g/dL (13.0-18.0)
[2024-11-04 20:59] LABS: INR 1.49; PT 18.6 Sec (11.4-14.6)
[2024-11-04 21:00] LABS: APTT 31.5 Sec (23.4-35.0)
[2024-11-04] MEDS: KCENTRA 80 UNIT IV (21:01)
--- NOTE | 2024-11-04 21:14 | HPS.HSE ---
Family Physician
-
Family Physician: AKASH Lock
Chief Complaint
-
GI bleeding
History of Present Illness
79-year-old male past medical history of diverticular bleeding, paroxysmal atrial fibrillation on Eliquis, hypertension, prior TIA, GI bleeding, osteoarthritis, COPD, recurrent asthmatic bronchitis, obstructive sleep apnea, BPH, presenting with
massive painless rectal bleeding a few hours ago, EMS was called. No nausea or vomiting. Does have some abdominal pain in his lower belly. No fevers or chills. He did have dizziness. No chest pain. He is also having some difficulty speaking.
He does have a history of diverticular bleeding in the past in 2019 which spontaneously resolved and upper GI bleeding from gastritis in 2020.
He had right knee surgery a month ago.
Does not smoke or drink alcohol.
Medical History
Past Medical History
Past Medical History: Reports Other (diverticular bleeding, paroxysmal atrial fibrillation on Eliquis, hypertension, prior TIA, GI bleeding, osteoarthritis, COPD, recurrent asthmatic bronchitis, obstructive sleep apnea, BPH)
Past Surgical History: Reports None
Social History
Tobacco: Non-smoker
Alcohol: None
Drug: None
Family History
Family History: Not pertinent
Allergies / Home Medications
Allergies reflects when Allergies were last updated in [employer].
Home Medications with original date entered in [employer]
Allergy/Medication List:
Allergies
Allergy/AdvReac Type Severity Reaction Status Date / Time
atropine sulfate Allergy Hives Verified 10/30/24 09:59
[From ]
broccoli Allergy diarrhea Verified 10/30/24 09:59
cauliflower Allergy DIARRHEA Verified 10/30/24 09:59
hyoscyamine sulfate Allergy Hives Verified 10/30/24 09:59
[From ]
latex Allergy Rash, red Verified 10/30/24 09:59
hands
onion Allergy DIARRHEA Verified 10/30/24 09:59
phenobarbital [From ] Allergy Hives Verified 10/30/24 09:59
scopolamine hydrobromide Allergy Hives Verified 10/30/24 09:59
[From ]
Home Medications
cholecalciferol (vitamin D3) 25 mcg (1,000 unit) capsule (Vitamin D3) 1,000 unit PO DAILY Supplement 10/21/16
silodosin 8 mg capsule 8 mg PO DAILY 04/23/18
amlodipine 2.5 mg tablet 2.5 mg PO DAILY 02/12/24
diazepam 5 mg tablet 5 mg PO DAILYPRN PRN ANXIETY/SLEEP 02/12/24
diltiazem HCl 240 mg capsule,24 hr,extended release 240 mg PO DAILY 02/12/24
rosuvastatin 10 mg tablet 10 mg PO DAILY 02/12/24
tamsulosin 0.4 mg capsule 0.4 mg PO DAILY 02/12/24
tadalafil 10 mg tablet (Cialis) 10 mg PO DAILY PRN ED 09/08/24
fluoxetine 1 tab PO DAILY 09/12/24
mupirocin 2 % topical ointment 1 applic intranasal BID #1 tube 09/12/24
Saccharomyces boulardii 250 mg capsule (Florastor) 250 mg PO BID #1 cap 10/06/24
acetaminophen 500 mg tablet (Tylenol Extra Strength) 1,000 mg (2 x 500 mg) PO QID #0 tabs 10/06/24
apixaban 5 mg tablet (Eliquis) 2.5 mg (1/2 x 5 mg) PO BID Blood clot prevention/tx/afib #60 tabs 10/06/24
cefadroxil 500 mg capsule 500 mg PO BID infection prevention #14 caps 10/06/24
dexamethasone 4 mg tablet 4 mg PO BID inflammation #6 tabs 10/06/24
docusate sodium 100 mg capsule (Colace) 100 mg PO BID stool softner #1 cap 10/06/24
famotidine 20 mg tablet 20 mg PO HS GI prophylaxis #30 tabs 10/06/24
gabapentin 300 mg capsule 300 mg PO BID sleep/pain #14 caps 10/06/24
hydromorphone 2 mg tablet 2 - 4 mg (1 - 2 x 2 mg) PO Q6H PRN 1 tab moderate pain, 2 severe #30 tabs 10/06/24
magnesium hydroxide 400 mg/5 mL oral suspension (Milk of Magnesia) 30 ml PO HS PRN Constipation #1 mL 10/06/24
ondansetron 4 mg disintegrating tablet 4 mg PO Q6H PRN n/v #20 tabs 10/06/24
sennosides 8.6 mg tablet (Senokot) 17.2 mg (2 x 8.6 mg) PO BID laxative #2 tabs 10/06/24
meclizine 25 mg tablet 25 mg PO TID PRN motion sickness #14 tabs 10/30/24
Review of Systems
-
History Source: Patient
A 12 point ROS was completed and negative except as noted: Yes
Constitutional: Reports No Symptoms
EENT: Reports No Symptoms
Respiratory: Reports No Symptoms
Cardiac: Reports No Symptoms
Abdomen/GI: Reports See HPI
: Reports No Symptoms
Musculoskeletal: Reports No Symptoms
Skin: Reports No Symptoms
Neurological: Reports No Symptoms
Endocrine: Reports No Symptoms
Hematologic/Lymphatic: Reports No Symptoms
Psych: Reports No Symptoms
Physical Exam
Vital Signs
Vital Signs
Temp Pulse Resp BP Pulse Ox
99.7 F 104 23 96/70 97
11/04/24 18:26 11/04/24 19:50 11/04/24 19:50 11/04/24 19:50 11/04/24 19:50
Physical Exam
General: Well Developed, Well Nourished and No Apparent Distress
HEENT: NormoCephalic, Moist mucous membranes and Atraumatic
Respiratory: Clear
Cardiac: S1/S2 and Regular Rhythm; No Murmur or Rub
GI: Soft, Non Distended, Normal Bowel Sounds and Tender (lower abdomen tenderness ); No Organomegaly
Rectal: Deferred by Provider
Musculoskeletal: No Clubbing, No Cyanosis and No Edema
Skin: No Rash
Neuro: Nonfocal/grossly intact
Laboratory Results
-
11/04/24 20:29
11/04/24 18:36
Laboratory Results
PT 18.6 Sec (11.4-14.6) H 11/04/24 20:42
INR 1.49 11/04/24 20:42
APTT 31.5 Sec (23.4-35.0) 11/04/24 20:42
Total Bilirubin 0.8 mg/dl (0.2-1.3) 11/04/24 18:36
AST 17 U/L (17-59) 11/04/24 18:36
ALT 14 U/L (0-50) 11/04/24 18:36
Alkaline Phosphatase 78 U/L (38-126) 11/04/24 18:36
Data Reviewed
-
Lab Data: Labs Reviewed by me
Old Records: Reviewed
Impression/Plan
-
IMPRESSION:
PLAN:
# Active colonic bleeding secondary to diverticular bleeding with hemorrhagic shock
-Hemoglobin 10.7 which is stable, repeat pending
- Blood pressure 80s, tachycardic
- CT abdomen pelvis shows active GI bleeding along the mid to distal descending colon
-CT head no acute abnormality
- PCC being given to reverse Eliquis
-IV fluid bolus
-2 units of blood
-N.p.o.
- IR notified to consider embolization
- GI consulted
Paroxysmal atrial fibrillation
- Hold Eliquis
-hold diltiazem
Essential hypertension
-hold amlodipine
Prior TIA
Osteoarthritis
COPD
Recurrent asthmatic bronchitis
Obstructive sleep apnea
BPH
-hold tamsulosin
Full code
DVT prophylaxis SCDs
N.p.o.
[2024-11-04 21:24] LABS: % Basophils 0.5 % (0-2); % Eosinophils 0.1 % (0-6); % Immature Granulocytes 0.4 % (0-0.5); % Lymphocytes 25.5 % (20.5-51.1); % Monocytes 9.6 % (1.7-9.3); % Neutrophils 63.9 % (42.2-75.2); Absolute Basophils 0.1 10^3/uL (0-0.2); Absolute Immature Granulocytes 0.1 10^3/uL (0-0.05); Absolute Lymphocytes 3.4 10^3/uL (1.2-3.4); Absolute Monocytes 1.3 10^3/uL (0.1-0.6); Absolute Neutrophils 8.5 10^3/uL (1.4-6.5); Hematocrit 27.5 % (39.0-52.0); Hemoglobin 9.4 g/dL (13.0-18.0); Mean Corp Hgb Conc. 34.2 g/dL (33.0-37.0); Mean Corpuscular Hgb 32.4 pg (27.0-31.0); Mean Corpuscular Volume 94.8 fL (80.0-94.0); Mean Platelet Volume 10.3 fL (7.4-10.4); Nucleated Red Blood Cells % 0 % (-); Platelet Count 338 10^3/uL (130-400); Red Cell Dist. Width 13.5 % (11.5-14.5); White Blood Cell Count 13.3 10^3/uL (4.8-10.8)
[2024-11-04 22:59] LABS: Glucose - Point of Care 115 mg/dl (70-99)
[2024-11-04] MEDS: PROTONIX 100 IV (23:51)
[2024-11-05] VITALS (43 sets, daily range): BP systolic 93–141; BP diastolic 49–112; BMI 28.7
--- NOTE | 2024-11-05 00:11 | PTCARENOTE ---
Received pt from ED RN. Pt pulled over to our bed. Pt is AAOx3, expressive aphasia. Pt NSR/sinus tach w/ PVCs and in and out of Aib on the monitor, + pedals, right knee edema from surgery a month ago. On RA O2 sat 97%, lungs clear. Pt incont x2. Pt
with 1 bloody BM at this moment. Tea colored urine. Right leg and foot bruising. SCDs in place. ICU LEAD JANITOR notified, for Protonix gtt, order placed (see MAR). CHG and mouth care provided. at bedside. Call kohli in reach.
[2024-11-05] MEDS: NSS 1000 IV ×3 (01:55→22:36)
--- NOTE | 2024-11-05 03:36 | PTCARENOTE ---
Systems reviewed, no new changes in assessment. AM labs provided. Pt with multiple burgundy BMs. Safe environment maintained. Call kohli in reach.
[2024-11-05 03:38] LABS: Hematocrit 16.9 % (39.0-52.0); Hemoglobin 5.7 g/dL (13.0-18.0); Mean Corp Hgb Conc. 33.7 g/dL (33.0-37.0); Mean Corpuscular Hgb 31.5 pg (27.0-31.0); Mean Corpuscular Volume 93.4 fL (80.0-94.0); Mean Platelet Volume 10.2 fL (7.4-10.4); Platelet Count 314 10^3/uL (130-400); Red Blood Cell Count 1.81 10^6/uL (4.70-6.10); Red Cell Dist. Width 14.3 % (11.5-14.5); White Blood Cell Count 12.9 10^3/uL (4.8-10.8)
[2024-11-05 04:00] LABS: ALT (SGPT) 11 U/L (0-50); AST (SGOT) 17 U/L (17-59); Albumin 2.8 g/dl (3.5-5.0); Alkaline Phosphatase 55 U/L (38-126); Blood Urea Nitrogen 18 mg/dl (9-20); Calcium 8.3 mg/dl (8.4-10.2); Carbon Dioxide 23 mmol/L (22-30); Chloride 115 mmol/L (98-107); Estimated Creatinine Clearance 70 ml/min; Glucose 117 mg/dl (70-99); Potassium 3.9 mmol/L (3.5-5.1); Sodium 143 mmol/L (135-145); Total Bilirubin 1.5 mg/dl (0.2-1.3); Total Protein 5.6 g/dl (6.3-8.2); eGFR > 60.00
--- NOTE | 2024-11-05 04:15 | PTCARENOTE ---
Pt H&H 5.7/16.9, ICU STRAIGHTENER notified 1 unit PRBCs ordered. 15 min VS check complete, VSS.
[2024-11-05] MEDS: OFIRMEV 100 IV (04:17)
[2024-11-05 05:17] LABS: Band Neutrophils 0 % (0-3); Lymphocytes 43 % (20-51); Monocytes 10 % (2-9); Normal RBC Morphology No; Platelets Checked Yes; Segmented Neutrophils 47 % (42-75)
[2024-11-05 05:18] LABS: Anisocytosis 1+; Macrocytosis 1+; Total Cells Counted 100
--- NOTE | 2024-11-05 07:06 | CON.GI ---
Addendum entered and electronically signed by Reagan Yates MD 11/05/24 13:28:
The patient was seen and examined by me independently in collaboration with the nurse practitioner.
Past medical history/social history/medications/allergies/family history reviewed.
Lab data and imaging data reviewed.
79-year-old male past medical history of A-fib on Eliquis, prior diverticular bleed in 2019, per possibly due to other diverticular bleeding, TIA, alcohol use, recent total knee replacement although no NSAIDs, some steroids postop presenting
with painless rectal bleeding. Had a significant bleeding last night with hemoglobin 5.7 with hypotension. Received 3 units of blood as well as Kcentra. I was contacted by the emergency room physician last night as a CTA was positive in the mid
to distal descending colon. I had recommended to contact interventional radiology which was done last night. It was felt the bleeding had improved so arteriogram was not performed last night. However, this morning he had ongoing rectal bleeding
so he was sent for arteriogram but unfortunately at this time it was negative.
I suspect he has recurrent diverticular bleeding. Plan for colonoscopy tomorrow. We discussed the risks of colonoscopy including bleeding, infection, missed lesion, incomplete procedure, perforation and cardiopulmonary complications from
anesthesia. Patient agreed to the procedure. We discussed the importance of bowel prep and need for escort. All questions were answered. Plan to prep with [employer].
If has ongoing bleeding and unable to stop with colonoscopy, will need either repeat arteriogram versus surgical evaluation. Discussed with patient and at bedside.
In the interim, continue to monitor hemoglobin and transfuse as needed.
Original Note:
Consultation
-
Date/Time Consultation Requested: 11/04/24 2240
Date/Time Consultation Performed: 11/05/24 0700
Requesting Provider: Sneha Rajput MD
Performing Provider: ORQUIDEA Castillo, Yuki Yates MD
Reason for Consultation: GI bleed
Medical History
Chief Complaint / HPI
Chief Complaint: rectal bleeding
History of Present Illness:
Pt is a 79yo presents with hx afib on Eliquis, prior diverticular bleed (while on ASA and Plavix in 2019) prior TIA, COPD, asthmatic bronchitis, sleep apnea, BPH, daily ETOH use, former tobacco abuse, TKR recently completed in September(with post-op
short course steroids, resumed Eliquis, Tylenol and antibiotics) , hernia repair with onset of painless rectal bleeding. In review with patient he began with large volume of bleeding on 11/04 at 1 PM with innumerable stools and too many to count.
He continued with large volume stool in admission with initial hbg 10.5 then drop to 5.7 overnight requiring transfusion. CTA completed with active GI bleed in mid to distal descending colon, diverticulosis, bladder calculus and enlarged prostate.
Pt was given K centra after admission.
At this time patient states stools are very regular daily. He denies any odynophagia, dysphagia, GERD, nausea, vomiting, abdominal pain, or black stool. Pt completed GI procedures last in 2019 with prior bleeding and noted EGD with gastritis
and hematin, and colon no blood in colon, diverticulosis, lipomatous polyp and no source on EGD or colon noted.
Past Medical History
Past Medical History: Arrhythmias (PAF on eliquis ), Cancer (melanoma), COPD, CVA (TIA), HTN, Hypercholesterolemia, Psychiatric (anxiety/depression) and Other (diverticular bleed, remote diverticulitis, osteoarthritis, recurrent asthmatic
bronchitis, sleep apnea, BPH, benign tremor)
Past Surgical History: Orthopedic (right TKR) and Other (periumbilical hernia repair )
Social History
Tobacco: Former Smoker
Alcohol: Daily (1-2 drinks wine daily)
Drug: None
Personal:
Living: With Family
Family History
Family History: Reviewed & Not Pertinent
Allergies / Home Medications
Allergy/AdvReac Type Severity Reaction Status Date / Time
atropine sulfate Allergy Hives Verified 10/30/24 09:59
[From ]
broccoli Allergy diarrhea Verified 10/30/24 09:59
cauliflower Allergy DIARRHEA Verified 10/30/24 09:59
hyoscyamine sulfate Allergy Hives Verified 10/30/24 09:59
[From ]
latex Allergy Rash, red Verified 10/30/24 09:59
hands
onion Allergy DIARRHEA Verified 10/30/24 09:59
phenobarbital [From ] Allergy Hives Verified 10/30/24 09:59
scopolamine hydrobromide Allergy Hives Verified 10/30/24 09:59
[From ]
�Medication �Instructions �Recorded
cholecalciferol (vitamin D3) 25 1,000 unit PO DAILY Supplement 10/21/16
mcg (1,000 unit) capsule (Vitamin
D3)
silodosin 8 mg capsule 8 mg PO DAILY 04/23/18
amlodipine 2.5 mg tablet 2.5 mg PO DAILY 02/12/24
diazepam 5 mg tablet 5 mg PO DAILYPRN PRN ANXIETY/SLEEP 02/12/24
diltiazem HCl 240 mg capsule,24 240 mg PO DAILY 02/12/24
hr,extended release
rosuvastatin 10 mg tablet 10 mg PO DAILY 02/12/24
tamsulosin 0.4 mg capsule 0.4 mg PO DAILY 02/12/24
tadalafil 10 mg tablet (Cialis) 10 mg PO DAILY PRN ED 09/08/24
fluoxetine 1 tab PO DAILY 09/12/24
mupirocin 2 % topical ointment 1 applic intranasal BID #1 tube 09/12/24
Saccharomyces boulardii 250 mg 250 mg PO BID #1 cap 10/06/24
capsule (Florastor)
acetaminophen 500 mg tablet 1,000 mg (2 x 500 mg) PO QID #0 10/06/24
(Tylenol Extra Strength) tabs
apixaban 5 mg tablet (Eliquis) 2.5 mg (1/2 x 5 mg) PO BID Blood 10/06/24
clot prevention/tx/afib #60 tabs
cefadroxil 500 mg capsule 500 mg PO BID infection prevention 10/06/24
#14 caps
dexamethasone 4 mg tablet 4 mg PO BID inflammation #6 tabs 10/06/24
docusate sodium 100 mg capsule 100 mg PO BID stool softner #1 cap 10/06/24
(Colace)
famotidine 20 mg tablet 20 mg PO HS GI prophylaxis #30 tabs 10/06/24
gabapentin 300 mg capsule 300 mg PO BID sleep/pain #14 caps 10/06/24
hydromorphone 2 mg tablet 2 - 4 mg (1 - 2 x 2 mg) PO Q6H PRN 10/06/24
1 tab moderate pain, 2 severe #30
tabs
magnesium hydroxide 400 mg/5 mL 30 ml PO HS PRN Constipation #1 mL 10/06/24
oral suspension (Milk of Magnesia)
ondansetron 4 mg disintegrating 4 mg PO Q6H PRN n/v #20 tabs 10/06/24
tablet
sennosides 8.6 mg tablet (Senokot) 17.2 mg (2 x 8.6 mg) PO BID 10/06/24
laxative #2 tabs
meclizine 25 mg tablet 25 mg PO TID PRN motion sickness 10/30/24
#14 tabs
Review of Systems
-
History Source: Patient
Constitutional: Reports No Symptoms
EENT: Reports No Symptoms
Respiratory: Reports No Symptoms
Abdomen/GI: Reports Bloody Stools
: Reports No Symptoms
Musculoskeletal: Reports No Symptoms
Skin: Reports No Symptoms
Neurological: Reports Weakness
Endocrine: Reports No Symptoms
Hematologic/Lymphatic: Reports Bleeding
Vital Signs
Temp Pulse Resp BP Pulse Ox
97.9 F 96 18 130/70 98
11/05/24 06:15 11/05/24 07:00 11/05/24 07:00 11/05/24 07:00 11/05/24 07:00
Physical Exam
Exam
General: Well Developed, Well Nourished and No Apparent Distress
HEENT: Normocephalic and Anicteric
Respiratory: Clear
Cardiac: Irregular Rhythm
GI: Soft, Non Tender and Non Distended
Rectal: Other (per staff recent large volume burgundy stool)
Musculoskeletal: No Clubbing and No Cyanosis
Skin: Warm
Neuro: Awake, Alert and AO x 3
Psych: Calm
Results
WBC 12.9 10^3/uL (4.8-10.8) H 11/05/24 03:20
Hgb 5.7 g/dL (13.0-18.0) L* D 11/05/24 03:20
Hct 16.9 % (39.0-52.0) L* 11/05/24 03:20
MCV 93.4 fL (80.0-94.0) 11/05/24 03:20
Plt Count 314 10^3/uL (130-400) 11/05/24 03:20
Absolute Neuts (auto) 8.5 10^3/uL (1.4-6.5) H 11/04/24 21:17
PT 18.6 Sec (11.4-14.6) H 11/04/24 20:42
INR 1.49 11/04/24 20:42
APTT 31.5 Sec (23.4-35.0) 11/04/24 20:42
Sodium 143 mmol/L (135-145) 11/05/24 03:20
Potassium 3.9 mmol/L (3.5-5.1) 11/05/24 03:20
Chloride 115 mmol/L (98-107) H 11/05/24 03:20
Carbon Dioxide 23 mmol/L (22-30) 11/05/24 03:20
BUN 18 mg/dl (9-20) 11/05/24 03:20
Creatinine 0.8 mg/dL (0.7-1.3) 11/05/24 03:20
Calcium 8.3 mg/dl (8.4-10.2) L 11/05/24 03:20
Total Bilirubin 1.5 mg/dl (0.2-1.3) H 11/05/24 03:20
AST 17 U/L (17-59) 11/05/24 03:20
ALT 11 U/L (0-50) 11/05/24 03:20
Alkaline Phosphatase 55 U/L (38-126) 11/05/24 03:20
Diagnostic Image Results:
CT findings compatible with active GI bleeding involving the mid to distal descending colon.
Numerous colonic diverticula with no findings suggestive of diverticulitis.
Calculus within the right posterolateral urinary bladder. Significant enlargement of the prostate gland, extending into the base of the bladder
Prior GI Procedures:
EGD:2019 [place] - Z-line variable, 36 cm from the incisors.
- Acute gastritis. Biopsy is contraindicated.
- Hematin (altered blood/[id number] material) in
the gastric fundus.
- Normal duodenal bulb, second portion of the duodenum,
third portion of the duodenum and fourth portion of the
duodenum.
- No specimens collected.
Colonoscopy: [facility] 10/2019- No blood (new or old) seen in the colon or distal ileum.
No source here to explain melena.
No source in the EGD or Colonoscopy.
- Enlarged prostate found on digital rectal exam.
- Non-bleeding external and internal hemorrhoids.
- Diverticulosis in the entire examined colon.
- One 3 mm polyp in the proximal ascending colon,
removed with a jumbo cold forceps. Resected and
retrieved.
- The examined portion of the ileum was normal.
- The examination was otherwise normal.
bx submucosal lipoma colonic mucosa
Assessment / Plan
-
Pt is a 79yo presents with hx afib on Eliquis, prior diverticular bleed (while on ASA and Plavix in 2019) prior TIA, COPD, asthmatic bronchitis, sleep apnea, BPH, daily ETOH use, former tobacco abuse, TKR recently completed in September(with post-op
short course steroids, resumed Eliquis, Tylenol and antibiotics) , hernia repair with onset of painless rectal bleeding. In review with patient he began with large volume of bleeding on 11/04 at 1 PM with innumerable stools and too many to count.
He continued with large volume stool in admission with initial hbg 10.5 then drop to 5.7 overnight requiring transfusion. CTA completed with active GI bleed in mid to distal descending colon, diverticulosis, bladder calculus and enlarged prostate.
Pt was given K centra after admission.
-painless rectal bleeding with CTA + active GI bleed in mid to distal descending colon concern for diverticular bleed
anemia with drop in hbg after admission
-afib on Eliquis prior to admission s/p Kcentra given on admission
-recent TKR 09/2024
-hx prior diverticular bleeding in 2019
other med problems:
-prior TIA
- COPD/ asthmatic bronchitis
-sleep apnea
-BPH
- daily ETOH use
- former tobacco abuse
- hernia repair
PLAN:
etiology of bleeding with concern for diverticular source in mid to distal descending colon vs other
still with large volume stools overnight and drop in hbg requiring transfusion
I reviewed again with IR for reassessment of pt for intervention
if IR unable to improving bleeding consider colonoscopy in AM
trend hbg/ transfuses as needed
s/p Kcentra given on admission
last Eliquis 11/03 PM
s/p ortho eval with recent TKR
transition PPI to BID with + CTA and normal BUN
pt and staff updated on plan
-
-
Thank you for consultation and allowing me to participate in the patient's care. Please call the instrumentation tech GI physician during the after hours with any questions or concerns.
[2024-11-05 07:22] LABS: Magnesium 1.8 mg/dl (1.6-2.3); Phosphorus 4.3 mg/dl (2.5-4.5)
--- NOTE | 2024-11-05 07:30 | PTCARENOTE ---
Patient received lying in bed, awake and alert, oriented x 4. Speech is clear. He states he is very fatigued. VSS. Mild العلي and he reports some dizziness with sudden movements. See tours captain charted in worklist flowsheet. ST with freq pac's on
CM and occasional PVCs. He denies CP or feeling SOB. No N/V. BBS clear except left base diminished with fine crackles. He declines wearing SCDs, educated with regard to purpose of SCDs, verbalized understanding. Currently NPO. IVF and Protonix gtts
infusing per order via Left Hand SL site. Left AC #18 flushes easily with good blood return. Right FA SL flushes easily. Right knee s/p TKR one month ago with some swelling and tenderness with palpation. Incision site healing well without s/sx of
infection. RLE with bruising, healing. Good pulses x 4 extremities. Assisted to bedpan as needed with moderate burgundy stools and some clots noted. Dr Downing at bedside to assess, updated with patient status. Repeat STAT H/H redrawn per power digger operator
order. Bed in low and locked position. Call kohli within reach. Patient verbalizes to call for help if needed.
--- NOTE | 2024-11-05 07:41 | W.PN.UPDATE ---
Update Note
Progress Note Update
Mr. Madera is now about one month out from his right knee replacement under the direction of Dr. Collazo. Unfortunately, last night he developed bright red blood per rectum which prompted him to present to ED for evaluation. He also reports his
was concerned as his speech and affect were somewhat slower than usual. He was found to have active colonic diverticular bleeding and hemorrhagic shock. 2 units PRBC was transfused last night, and another unit was transfused early this morning.
He is resting comfortably in bed this morning, and does report he is feeling better and more like himself following the transfusion.
On exam, he has somewhat pale complexion, but is otherwise well appearing. AAOx3. He has expected post-operative edema and ecchymosis about the right knee. His incision is healing well. ROM 0-100 degrees this morning, some AM stiffness as expected.
Calf soft and nontender. Neurovascularly intact distally.
We appreciate the assistance of all teams in care of this patient, continue treatment. Boris's knee continues to be healing well. He may resume physical therapy once deemed medically appropriate. Orthopedics will plan to follow peripherally, but
please reach out with any questions or concerns.
[2024-11-05 07:52] LABS: Hematocrit 25.8 % (39.0-52.0); Hemoglobin 8.5 g/dL (13.0-18.0)
--- NOTE | 2024-11-05 08:46 | CON.INTV ---
Consultation
Consultation Request
Date/Time Consultation Requested: 11/05/2024
Date/Time Consultation Performed: 11/05/2024
Medical History
-
Chief Complaint: BRBPR
History of Present Illness:
79-year-old male past medical history of A-fib on Eliquis, diverticulosis with history of prior diverticular bleed 2018, upper GI bleed in 2019, h/o diverticulitis, hypertension, hyperlipidemia, TIA 15 years ago, ex-smoker, SAMY, BPH, osteoarthritis,
history of basal cell carcinoma, anxiety, depression with recent admission to the ED on 10/30/2024 for dizziness consistent with BPV, and was discharged home same day. Patient returns to ED with few hours of of painless BRBPR, associated dizziness,
no fevers chills, chest pain, palpitations. He reports no recent medication changes, GI illness, NSAID use. Hgb during prior admission on 10/30/2024 10.7.
On admission to ED his hgb was 10.7, however repeat H&H showed hgb drop to 9.2. CTA abdomen pelvis shows active GI bleeding along the mid to distal descending colon. He was given 2U PRBCs, PCC given to reverse Eliquis (last dose 11/03). IR consulted
in ED but no intervention at that time. Repeat Hgb 03:00 showed 5.7, for which he was transfused another U PRBCs. Repeat hgb at 07:30 was 8.5. Seen by GI and IR was reconsulted.
Patient is awake, alert and oriented this morning. He is on a protonix ggt and 100cc/hr of NS. He is not requiring pressors, and is hemodynamically stable. He had x5 moderate, soft/loose burgundy stools overnight. He has no acute complaints this
morning and is resting comfortably in bed. He is intermittently tachycardic with PACs on monitor but no definitive afib. Saturating well on Room Air.
Past Medical History
Past Medical History: Arrhythmias, Cancer (History of basal cell carcinoma), CVA (TIA 15 years ago), HTN, Hypercholesterolemia and Other (Diverticulosis, diverticulitis, BPH, anxiety, depression)
Social History
Tobacco: Former Smoker
Alcohol: Daily
Drug: None
Family History
Family History: Reviewed & Not Pertinent
Allergies / Home Medications
Allergies
Allergy/AdvReac Type Severity Reaction Status Date / Time
atropine sulfate Allergy Hives Verified 10/30/24 09:59
[From ]
broccoli Allergy diarrhea Verified 10/30/24 09:59
cauliflower Allergy DIARRHEA Verified 10/30/24 09:59
hyoscyamine sulfate Allergy Hives Verified 10/30/24 09:59
[From ]
latex Allergy Rash, red Verified 10/30/24 09:59
hands
onion Allergy DIARRHEA Verified 10/30/24 09:59
phenobarbital [From ] Allergy Hives Verified 10/30/24 09:59
scopolamine hydrobromide Allergy Hives Verified 10/30/24 09:59
[From ]
Home Medications
�Medication �Instructions �Recorded �Confirmed �Last Taken �Type
cholecalciferol (vitamin D3) 25 1,000 unit PO DAILY Supplement 10/21/16 10/06/24 09/22/24 History
mcg (1,000 unit) capsule (Vitamin
D3)
silodosin 8 mg capsule 8 mg PO DAILY 04/23/18 10/06/24 10/05/24 21:00 Rx
amlodipine 2.5 mg tablet 2.5 mg PO DAILY 02/12/24 10/06/24 10/05/24 21:00 History
diazepam 5 mg tablet 5 mg PO DAILYPRN PRN ANXIETY/SLEEP 02/12/24 10/06/24 09/30/24 History
diltiazem HCl 240 mg capsule,24 240 mg PO DAILY 02/12/24 10/06/24 10/05/24 21:00 History
hr,extended release
rosuvastatin 10 mg tablet 10 mg PO DAILY 02/12/24 10/06/24 10/05/24 21:00 History
tamsulosin 0.4 mg capsule 0.4 mg PO DAILY 02/12/24 10/06/24 10/05/24 21:00 History
tadalafil 10 mg tablet (Cialis) 10 mg PO DAILY PRN ED 09/08/24 10/06/24 Unknown History
fluoxetine 1 tab PO DAILY 09/12/24 10/06/24 10/05/24 21:00 History
mupirocin 2 % topical ointment 1 applic intranasal BID #1 tube 09/12/24 Unknown Rx
Saccharomyces boulardii 250 mg 250 mg PO BID #1 cap 10/06/24 Unknown Rx
capsule (Florastor)
acetaminophen 500 mg tablet 1,000 mg (2 x 500 mg) PO QID #0 10/06/24 10/06/24 09/08/24 Rx
(Tylenol Extra Strength) tabs
apixaban 5 mg tablet (Eliquis) 2.5 mg (1/2 x 5 mg) PO BID Blood 10/06/24 10/06/24 10/02/24 20:00 Rx
clot prevention/tx/afib #60 tabs
cefadroxil 500 mg capsule 500 mg PO BID infection prevention 10/06/24 Unknown Rx
#14 caps
dexamethasone 4 mg tablet 4 mg PO BID inflammation #6 tabs 10/06/24 Unknown Rx
docusate sodium 100 mg capsule 100 mg PO BID stool softner #1 cap 10/06/24 Unknown Rx
(Colace)
famotidine 20 mg tablet 20 mg PO HS GI prophylaxis #30 tabs 10/06/24 Unknown Rx
gabapentin 300 mg capsule 300 mg PO BID sleep/pain #14 caps 10/06/24 Unknown Rx
hydromorphone 2 mg tablet 2 - 4 mg (1 - 2 x 2 mg) PO Q6H PRN 10/06/24 Unknown Rx
1 tab moderate pain, 2 severe #30
tabs
magnesium hydroxide 400 mg/5 mL 30 ml PO HS PRN Constipation #1 mL 10/06/24 Unknown Rx
oral suspension (Milk of Magnesia)
ondansetron 4 mg disintegrating 4 mg PO Q6H PRN n/v #20 tabs 10/06/24 Unknown Rx
tablet
sennosides 8.6 mg tablet (Senokot) 17.2 mg (2 x 8.6 mg) PO BID 10/06/24 Unknown Rx
laxative #2 tabs
meclizine 25 mg tablet 25 mg PO TID PRN motion sickness 10/30/24 Unknown Rx
#14 tabs
Review of Systems
-
History Source: Patient
All other systems: Negative unless noted
Constitutional: No Symptoms
EENT: No Symptoms
Respiratory: No Symptoms
Cardiac: No Symptoms
Abdomen/GI: Abdominal Pain (None), Nausea (None), Vomiting (None), Diarrhea (None), Constipated (None) and Bloody Stools
: No Symptoms
Musculoskeletal: No Symptoms
Skin: No Symptoms
Neuro: Dizzy and Headache (None)
Endocrine: No Symptoms
Hematologic/Lymphatic: Bleeding
Vitals / Labs / Diagnostic Testing
Vital Signs
Temp Pulse Resp BP Pulse Ox
97.5 F 103 15 127/74 99
11/05/24 07:51 11/05/24 07:30 11/05/24 07:30 11/05/24 07:30 11/05/24 07:30
Lab Data
11/05/24 03:20
Laboratory Results
11/04/24
20:42
PT 18.6 H
INR 1.49
APTT 31.5
Diagnostic Testing:
Physical Exam
-
HEENT: Normocephalic, Anicteric and Moist Mucous Membranes
Cardiovascular: S1/S2, Regular Rhythm and Murmur (None)
Respiratory: Clear, Wheeze (None), Rales (None), Rhonchi (None) and Non-Labored Respirations
GI: Soft, Non Distended and Non Tender
Neurology: AO x 3
Skin: Warm and Dry
General: Comfortable
Assessment
-
ASSESSMENT
79 year old man w/ PMHx of diverticular bleed in 2019, diverticulosis, paroxysmal Afib on Eliquis who presents with painless, BRBPR
# Acute Colonic diverticular bleed
# Hemorrhagic shock, not requiring pressors
# Acute blood loss anemia
# Paroxysmal A-fib on Eliquis
# H/o Diverticular bleed in 2019
# Diverticulosis
# H/o Diverticulitis
# History of TIA 15 years ago
# Hypertension
# Hyperlipidemia
# Osteoarthritis s/p R TKA 09/2024
# History of basal cell carcinoma
# Anxiety
# Depression
# Ex-smoker
PLAN
Hemorrhagic shock secondary to acute diverticular bleed in the mid to distal descending colon
Acute blood loss anemia
- CTA abdomen pelvis showing active GI bleed in the mid to distal colon
- Hemoglobin on admission 10.7 with subsequent drop to 5.7, requiring total 3 units packed RBCs -- repeat hemoglobin 8.5
- Last dose of Eliquis 11/03, received PCC in ED
- Status post 2 L bolus normal saline in the ED with stable hemodynamics, currently on 100 cc/h normal saline, SBP ranges 110s to 130s, patient not requiring pressors
- Still having multiple burgundy stools overnight, though patient is asymptomatic at this time
- Seen by GI, sent to IR for possible intervention/embolization, if no intervention then GI may proceed with colonoscopy
- Was on Protonix drip, now IV 40 twice daily -- suspicion low for upper GI bleed with normal BUN, CTA evidence of lower GI bleed
- Continue to monitor H&H q6, transfuse if hemoglobin less than 7
- Patient currently n.p.o. -- when transition to p.o., will DC IV fluids
DVT prophylaxis - holding due to active GI bleed
CODE STATUS - full code
Diagnostic Imaging:
CT Abd/pelvis Angio W/wo Iv:
CT findings compatible with active GI bleeding involving the mid to distal descending colon.
Numerous colonic diverticula with no findings suggestive of diverticulitis.
Calculus within the right posterolateral urinary bladder. Significant enlargement of the prostate gland, extending into the base of the bladder.
CT Head W/o Iv Contrast:
There is no evidence of intracranial mass lesion or mass effect with no midline shift. There is no evidence for acute intracranial hemorrhage.
3 mm focus of decreased density within the right caudate nucleus, best seen on image 18 of series 202, stable from prior examination, and likely from old infarction.
There is moderate to severe leukomalacia. Mild to moderate diffuse atrophy.
No CT evidence of a focal area of acute to subacute infarction.
No abnormal extra-axial collection is identified.
The visualized paranasal sinuses appear clear. The mastoid air cells appear clear.
CR Chest Portable - 1 View:
No evidence of active cardiopulmonary disease.
--- NOTE | 2024-11-05 08:55 | PTCARENOTE ---
Protonix gtt discontinued per order. IVF continued.
--- NOTE | 2024-11-05 09:30 | PTCARENOTE ---
Patient to IR via bed accompanied by RN and PCT with portable monitor. Beata SANTIAGO receiving patient.
--- NOTE | 2024-11-05 11:23 | W.PN.UPDATE ---
Update Note
Progress Note Update
Arteriogram was negative for extravasation, despite superselective catheterization of branches of CASE.
He was hemodynamically stable throughout, with no BM in our department.
Bedrest for 2 hours.
--- NOTE | 2024-11-05 12:00 | PTCARENOTE ---
Patient returned from IRAD accompanied by RN and PCT. Right groin soft, dressing CDI. Neuro and circulation checks RLE per order. Neurovascularly intact. VSS. ST on CM. Essentially no other change in patient assessment. HOB flat with legs straight
until 1316. Patient at bedside. Updated with patient clinical status.
--- NOTE | 2024-11-05 13:00 | PTCARENOTE ---
Dr. Yates at bedside to evaluate. Updated with patient clinical status. Patient continues to have loose liquid BMs burgundy with bright red blood and clots. Skin care and hygiene as needed. Repeat H/H drawn as ordered. HOB up at 1317. Clear liquid
diet ordered per MD.
[2024-11-05 13:05] LABS: Hematocrit 23.8 % (39.0-52.0); Hemoglobin 7.8 g/dL (13.0-18.0)
--- NOTE | 2024-11-05 14:09 | W.PN.HOSP.TC ---
Today's Communication/Plan
-
Monitor vital signs see plan
Continue to hold Eliquis
Repeat hemoglobin later today and transfuse as necessary
Plan for colonoscopy tomorrow
monitor bloody Bm's
Assessment / Plan
Assessment / Plan
General: Well Developed, Well Nourished and No Apparent Distress
HEENT: NormoCephalic, Moist mucous membranes and Atraumatic
Respiratory: Clear
Cardiac: S1/S2 and Regular Rhythm; No Murmur or Rub
GI: Soft, Non Distended, Normal Bowel Sounds and Tender (lower abdomen tenderness )
Musculoskeletal: No Edema
Neuro: Nonfocal/grossly intact
Hemorrhagic shock secondary to diverticular bleeding
- CT abdomen pelvis shows active GI bleeding along the mid to distal descending colon
Status post IR evaluation negative for active extravasation.
GI following, plan for colonoscopy tomorrow
Replete PRBC as necessary; repeat hgb later today
-CT head no acute abnormality
- kcentra being given to reverse Eliquis
IVF
Paroxysmal atrial fibrillation
- Hold Eliquis for now
-hold diltiazem
Essential hypertension
-hold amlodipine
Prior TIA
Osteoarthritis
COPD
Recurrent asthmatic bronchitis
Obstructive sleep apnea
BPH
Full code
DVT prophylaxis SCDs
I spent a total of 52 minutes with the patient or on the floor. More than 50% of this time involved counseling and coordination of care.
Anticipated Discharge: 24 - 48 hours
Subjective/Interval History
-
Date of Service: November 05, 2024
Denies abdominal pain
Objective Data
-
Labs:
Laboratory Results
11/05/24 11/05/24 11/05/24
03:20 07:33 12:56
WBC 12.9 H
Hgb 5.7 L* D 8.5 L D 7.8 L
Hct 16.9 L* 25.8 L 23.8 L
Plt Count 314
Sodium 143
Potassium 3.9
Chloride 115 H
Carbon Dioxide 23
BUN 18
Creatinine 0.8
Glucose 117 H
Calcium 8.3 L
Total Bilirubin 1.5 H
AST 17
ALT 11
Alkaline Phosphatase 55
11/05/24
21:00
WBC
Hgb Pending
Hct Pending
Plt Count
Sodium
Potassium
Chloride
Carbon Dioxide
BUN
Creatinine
Glucose
Calcium
Total Bilirubin
AST
ALT
Alkaline Phosphatase
Vital Signs:
Vital Signs
Temp Pulse Resp BP Pulse Ox
98.6 F 118 27 122/74 99
11/05/24 12:09 11/05/24 12:30 11/05/24 12:30 11/05/24 12:30 11/05/24 12:30
I&O
11/04/24 11/05/24 11/06/24
06:59 06:59 06:59
Intake Total 1060 / 1170 905 / 905
Output Total 280 / 280
Balance 780 / 890 905 / 905
--- NOTE | 2024-11-05 16:25 | PTCARENOTE ---
Patient noted to go into rapid Afib with HR 140s. BP stable. Patient is asymptomatic. No CP or SOB. Advised to blow through end of syringe--HR back down to 110-120. Patient has not been restarted back on his home medications including Diltiazem.
Antione notified, new orders received to start patient on Cardizem gtt. Rest of physical assessment unchanged.
[2024-11-05] MEDS: CARDIZEM 125 IV (16:45)
[2024-11-05] MEDS: NULYTELY SOLUTION 4 LITERS PO (16:52)
--- NOTE | 2024-11-05 18:48 | PTCARENOTE ---
Report given verbally to oncoming cesar, Tiff RN. Questions answered.
[2024-11-05] MEDS: NSS (PRESERVATIVE FREE) 10 ML IV (20:02)
[2024-11-05] MEDS: PROTONIX IV 40 MG IV (20:02)
--- NOTE | 2024-11-05 20:26 | PTCARENOTE ---
Received pt from previous RN. Pt is AAOx3, aphasic at times, forgetful, tearful emotional support provided. NSR/sinus tach/ Afib w/ PCVs on the monitor. Pt on RA O2 sat 99%, lungs diminished, tachypneic at times. Pt with bloody/burgundy BM. Pt uses
the urinal, incont at times. Right femoral site check and right neurovascular checks per protocol (see worklist). CHG bath provided. Bed alarm in place. Call kohli in reach. Safe environment maintained.
[2024-11-05 21:24] LABS: Hematocrit 22.3 % (39.0-52.0); Hemoglobin 7.8 g/dL (13.0-18.0)
--- NOTE | 2024-11-05 22:55 | PTCARENOTE ---
Systems reviewed, no new changes in assessment. Pt c/o dizziness. Pt half way through his prep. Cardizem gtt @ 5 mg/hr. Safe environment maintained. Call kohli in reach.
[2024-11-06] VITALS (23 sets, daily range): BP systolic 92–138; BP diastolic 45–103; BMI 28.9
[2024-11-06] MEDS: CARDIZEM 125 IV (04:08)
--- NOTE | 2024-11-06 04:21 | PTCARENOTE ---
Systems reviewed, no new changes in assessment. AM labs provided. Pt states he is unable to finish the bowel prep, [employer] CUTTER notified. Call kohli in reach.
[2024-11-06 04:44] LABS: Blood Urea Nitrogen 13 mg/dl (9-20); Calcium 7.6 mg/dl (8.4-10.2); Carbon Dioxide 24 mmol/L (22-30); Chloride 115 mmol/L (98-107); Estimated Creatinine Clearance 80 ml/min; Glucose 106 mg/dl (70-99); Sodium 140 mmol/L (135-145); eGFR > 60.00
[2024-11-06 05:01] LABS: Hematocrit 19.7 % (39.0-52.0); Hemoglobin 6.7 g/dL (13.0-18.0); Mean Corpuscular Hgb 31.2 pg (27.0-31.0); Mean Corpuscular Volume 91.6 fL (80.0-94.0); Mean Platelet Volume 10.3 fL (7.4-10.4); Platelet Count 213 10^3/uL (130-400); Red Blood Cell Count 2.15 10^6/uL (4.70-6.10); Red Cell Dist. Width 15.4 % (11.5-14.5); White Blood Cell Count 9.2 10^3/uL (4.8-10.8)
[2024-11-06] MEDS: KCL 270 MEQ IV ×2 (05:39→10:03)
--- NOTE | 2024-11-06 05:39 | PTCARENOTE ---
Pt H&H 6.7/19.7. ICU BALANCE BRIDGE ASSEMBLER notified, 1 unit PRBCs ordered. 15 min VS check complete, VSS.
[2024-11-06 05:43] LABS: % Basophils 0.4 % (0-2); % Eosinophils 0.5 % (0-6); % Immature Granulocytes 0.4 % (0-0.5); % Lymphocytes 40.7 % (20.5-51.1); % Monocytes 11.5 % (1.7-9.3); % Neutrophils 46.5 % (42.2-75.2); Absolute Eosinophils 0.1 10^3/uL (0-0.7); Absolute Lymphocytes 3.8 10^3/uL (1.2-3.4); Absolute Monocytes 1.1 10^3/uL (0.1-0.6); Absolute Neutrophils 4.3 10^3/uL (1.4-6.5); Nucleated Red Blood Cells % 0 % (-)
[2024-11-06] MEDS: NSS (PRESERVATIVE FREE) 10 ML IV ×2 (07:41→20:11)
[2024-11-06] MEDS: NSS 1000 IV ×2 (07:42→17:25)
[2024-11-06] MEDS: PROTONIX IV 40 MG IV ×2 (07:42→20:10)
[2024-11-06] MEDS: PROZAC 20 MG PO (07:44)
--- NOTE | 2024-11-06 08:13 | PTCARENOTE ---
Received patient from night club manager. patient is confused this morning, but easily reoriented. States that he is confused and was asking when his family was going to come. aware that he is at [place] and it is October 2024. Patient is in afib/
breaking into sinus rhythm at times as well. remains on cardizem gtt at 10ml/hr. He is 98% on room air. one unit of pRBCs infusing, Patient is incontinent of bowel and bladder but then asked to use the bed lock. continuing to reinforce plan of
care. NSS and potassium rider is infusing into left forearm. Patient NPO. Will review orders, patient due to go to GI lab.
--- NOTE | 2024-11-06 08:41 | W.PN.INTV ---
Today's Communication / Plan
Recommendations
replete K
stop cardizem ggt, start 120mg extended release
afternoon H&H
CLD
downgrade from ICU if stable and off drips
Assessment
-
ASSESSMENT
79 year old man w/ PMHx of diverticular bleed in 2019, diverticulosis, paroxysmal Afib on Eliquis who presents with painless, BRBPR
# Acute Colonic diverticular bleed
# Hemorrhagic shock, not requiring pressors
# Acute blood loss anemia
#Hypokalemia
# Paroxysmal A-fib on Eliquis
# H/o Diverticular bleed in 2019
# Diverticulosis
# H/o Diverticulitis
# History of TIA 15 years ago
# Hypertension
# Hyperlipidemia
# Osteoarthritis s/p R TKA 09/2024
# History of basal cell carcinoma
# Anxiety
# Depression
# Ex-smoker
PLAN
Hemorrhagic shock secondary to acute diverticular bleed in the mid to distal descending colon
Acute blood loss anemia
- CTA abdomen pelvis showing active GI bleed in the mid to distal colon
- Last dose of Eliquis 11/03, received PCC in ED
- Hemoglobin on admission 10.7 with subsequent drop to 5.7, requiring total 3 units packed RBCs -- increase to 8.5 -- down to 6.7 again overnight, received 1U PRBCs -- repeat in afternoon, remains hemodynamically stable
- Status post 2 L bolus normal saline in the ED with stable hemodynamics, currently on 100 cc/h normal saline, SBP ranges 110s to 130s, patient not requiring pressors
- Still having multiple burgundy stools overnight, though patient is asymptomatic at this time
- Seen by IR -- no active extravasation
- Went for colonoscopy this AM, suspect diverticular bleed which has resolved -- follow up OP for routine screening colonoscopy
- Was on Protonix drip, now IV 40 twice daily -- suspicion low for upper GI bleed with normal BUN, CTA evidence of lower GI bleed
- Continue to monitor H&H q6, transfuse if hemoglobin less than 7
- CLD with advancement per primary/GI
- Will observe for afternoon H&H, if patient remains stable can downgrade
Hypokalemia
- K 3.0 this am. repleted with 80meq IV, can add po KCL if needed on repeat bmp
- patient making urine, not requiring pressure support, stable bench mechanic
Paroxysmal Afib
- PO diltiazem 240mg was held on admission due to NPO
- patient went into Afib, was started on cardizem ggt, currently weaning as patient has already converted to SR
- will restart PO Cardizem extended release and stop ggt
DVT prophylaxis - holding due to active GI bleed
CODE STATUS - full code
Diagnostic Imaging:
CT Abd/pelvis Angio W/wo Iv:
CT findings compatible with active GI bleeding involving the mid to distal descending colon.
Numerous colonic diverticula with no findings suggestive of diverticulitis.
Calculus within the right posterolateral urinary bladder. Significant enlargement of the prostate gland, extending into the base of the bladder.
CT Head W/o Iv Contrast:
There is no evidence of intracranial mass lesion or mass effect with no midline shift. There is no evidence for acute intracranial hemorrhage.
3 mm focus of decreased density within the right caudate nucleus, best seen on image 18 of series 202, stable from prior examination, and likely from old infarction.
There is moderate to severe leukomalacia. Mild to moderate diffuse atrophy.
No CT evidence of a focal area of acute to subacute infarction.
No abnormal extra-axial collection is identified.
The visualized paranasal sinuses appear clear. The mastoid air cells appear clear.
CR Chest Portable - 1 View:
No evidence of active cardiopulmonary disease.
Subjective Dataa
Subjective Data
Date of Service:
Date of Service: November 06, 2024
Chief Complaint: [facility] [employer] Follow Up
Subjective:
Patient has no acute complaints since this morning. Hemoglobin in the early a.m. was 6.7, received 1 unit packed RBCs, repeat H&H in the afternoon. Prep for colonoscopy this a.m., having loose brown bowel movements with blood. Went into afib
overnight, placed on Cardizem drip 10, now down to 5, converted to NSR.
Review of Systems
General: Fever (None.), Sweats (None.), Chills (None.) and Pain
HEENT: Oral/Throat Pain (None.) and Dysphagia (None.)
Cardiopulmonary: Dyspnea (None.), Cough (None.), Wheezing (None.), Chest Pain (None.) and Edema (None.)
GI: Abdominal Pain (None.), Vomiting (None.) and Diarrhea (None.)
Neuro: Headache (None.), Dizziness (None.) and Numbness (None.)
Genitourinary: Dysuria (None.)
Objective Data
Data Reviewed
Vital Signs / I&O / Oxygen:
Vital Signs
Temp Pulse Resp BP Pulse Ox
97.8 F 75 17 118/57 99
11/06/24 08:12 11/06/24 08:30 11/06/24 08:30 11/06/24 08:11 11/06/24 08:30
Intake and Output
11/05/24 11/06/24 11/07/24
06:59 06:59 06:59
Intake Total 1060 / 1170 4047.5 / 4047.5 427.5 / 427.5
Output Total 280 / 280 900 / 900 150 / 150
Balance 780 / 890 3147.5 / 3147.5 277.5 / 277.5
SaO2 99
Nasal Cannula flow liters per 100
minute
Physical Exam
General: Comfortable and Good Appetite
HEENT: Normocephalic, Anicteric and Moist Mucous Membranes
Cardiovascular: S1-S2, Regular Rhythm, Murmur (None.), Rub (None.) and Peripheral Edema (None.)
Respiratory: Clear, Wheeze (None.), Crackles (None.), Rhonchi and Non-Labored Respirations
GI: Soft, Non Distended, Non Tender and Normal Bowel Sounds
Neurology: AO x 3
Skin: Warm and Dry
Labs/Micro/Reports
Lab Data
11/06/24 04:15
--- NOTE | 2024-11-06 09:02 | PTCARENOTE ---
took patient to GI lab on monitor.
--- NOTE | 2024-11-06 10:21 | PTCARENOTE ---
Returned from GI lab, no acute findings, will start clear liquid diet. present at bedside, updated on findings by Dr. Yates.
--- NOTE | 2024-11-06 11:19 | W.PN.UPDATE ---
Update Note
Progress Note Update
I did update about findings of cscope. I also did mention the polyp not removed today if they wish can pursue screening cscope outpatient.
Continue to hold Eliquis for now.
Monitor Hb.
[2024-11-06] MEDS: CARDIZEM CD 120 MG PO (11:48)
--- NOTE | 2024-11-06 12:01 | CM ---
Initial assessment completed with patient and his who live in a 1 story ranch style home with basement with 2 steps to enter. Patient had a R knee replacement 1 month ago and has been using a RW since. Prior to the R knee surgery he did not
use any assistive devices and has no other DME in the home. He does drive. No in-home services. Does have HC POA and has been requested to bring copy to hospital. Was in [place] and does not use any [facility] services. Support system is and family. PCP
is Dr. Krish Ayala [place] and Pharmacy is [facility] on [address] in [place] Discharge POC: Home with NN. Patient and declined HH services.
--- NOTE | 2024-11-06 13:11 | W.PN.HOSP.TC ---
Today's Communication/Plan
-
monitor vitals
see plan
monitor hgb and transfuse as necessary
wean cardizem gtt and restart PO cardizem
hold elqiuis per GI
clears for now
replete K; check Mg
Assessment / Plan
Assessment / Plan
General: Well Developed, Well Nourished and No Apparent Distress
HEENT: NormoCephalic, Moist mucous membranes and Atraumatic
Respiratory: Clear
Cardiac: S1/S2 and Regular Rhythm; No Murmur or Rub
GI: Soft, Non Distended, Normal Bowel Sounds and Tender (lower abdomen tenderness )
Musculoskeletal: No Edema
Neuro: Nonfocal/grossly intact
Hemorrhagic shock secondary to diverticular bleeding
- CT abdomen pelvis shows active GI bleeding along the mid to distal descending colon
Status post IR evaluation negative for active extravasation.
GI following, status post colonoscopy 11/06 without acute bleeding. cw clears per GI. appears bleeding has stopped
Replete PRBC as necessary; repeat hgb later today
-CT head no acute abnormality
- kcentra being given to reverse Eliquis
IVF
Paroxysmal atrial fibrillation
went in and out of afiv 11/05; now in NSR
- Hold Eliquis for now; defer to Gi when to restart. Also advised patient to follow-up with cardiology soon for watchman evaluation. has seen Dr Carlitos Garland earlier
-restart PO cardizem and wean cardizem gtt
Hypokalemia
Replete
Check magnesium
Essential hypertension
-hold amlodipine
Prior TIA
Osteoarthritis
COPD
Recurrent asthmatic bronchitis
Obstructive sleep apnea
BPH
Full code
DVT prophylaxis SCDs
I spent a total of 51 minutes with the patient or on the floor. More than 50% of this time involved counseling and coordination of care.
Anticipated Discharge: > 48 hours
Subjective/Interval History
-
Date of Service: November 06, 2024
denies abdominal pain
Objective Data
-
Labs:
Laboratory Results
11/06/24
04:15
WBC 9.2
Hgb 6.7 L*
Hct 19.7 L*
Plt Count 213 D
Sodium 140
Potassium 3.0 L
Chloride 115 H
Carbon Dioxide 24
BUN 13
Creatinine 0.7
Glucose 106 H
Calcium 7.6 L
Vital Signs:
Vital Signs
Temp Pulse Resp BP Pulse Ox
97.8 F 76 20 113/59 99
11/06/24 11:43 11/06/24 11:30 11/06/24 11:30 11/06/24 11:03 11/06/24 11:30
I&O
11/05/24 11/06/24 11/07/24
06:59 06:59 06:59
Intake Total 1060 / 1170 4047.5 / 4047.5 1117.5 / 1117.5
Output Total 280 / 280 900 / 900 400 / 400
Balance 780 / 890 3147.5 / 3147.5 717.5 / 717.5
[2024-11-06 13:42] LABS: Magnesium 1.7 mg/dl (1.6-2.3)
[2024-11-06 13:57] LABS: Hematocrit 23.4 % (39.0-52.0); Hemoglobin 7.7 g/dL (13.0-18.0)
[2024-11-06] MEDS: MAGNESIUM SULFATE 100 IV (14:59)
[2024-11-06 22:59] LABS: Hematocrit 22.9 % (39.0-52.0); Hemoglobin 7.8 g/dL (13.0-18.0)
[2024-11-07] VITALS (9 sets, daily range): BP systolic 104–141; BP diastolic 56–78
[2024-11-07 07:01] LABS: % Basophils 0.6 % (0-2); % Eosinophils 1.3 % (0-6); % Immature Granulocytes 0.3 % (0-0.5); % Lymphocytes 36.1 % (20.5-51.1); % Monocytes 12.6 % (1.7-9.3); % Neutrophils 49.1 % (42.2-75.2); Absolute Basophils 0.1 10^3/uL (0-0.2); Absolute Eosinophils 0.1 10^3/uL (0-0.7); Absolute Lymphocytes 3.2 10^3/uL (1.2-3.4); Absolute Monocytes 1.1 10^3/uL (0.1-0.6); Absolute Neutrophils 4.4 10^3/uL (1.4-6.5); Hematocrit 21.1 % (39.0-52.0); Hemoglobin 7.2 g/dL (13.0-18.0); Mean Corp Hgb Conc. 34.1 g/dL (33.0-37.0); Mean Corpuscular Hgb 31.9 pg (27.0-31.0); Mean Corpuscular Volume 93.4 fL (80.0-94.0); Mean Platelet Volume 10.5 fL (7.4-10.4); Nucleated Red Blood Cells % 0 % (-); Platelet Count 220 10^3/uL (130-400); Red Blood Cell Count 2.26 10^6/uL (4.70-6.10); Red Cell Dist. Width 14.7 % (11.5-14.5); White Blood Cell Count 8.9 10^3/uL (4.8-10.8)
[2024-11-07 07:19] LABS: Blood Urea Nitrogen 3 mg/dl (9-20); Calcium 8.3 mg/dl (8.4-10.2); Carbon Dioxide 26 mmol/L (22-30); Chloride 112 mmol/L (98-107); Estimated Creatinine Clearance 80 ml/min; Glucose 97 mg/dl (70-99); Potassium 3.5 mmol/L (3.5-5.1); Sodium 141 mmol/L (135-145); eGFR > 60.00
[2024-11-07] MEDS: CARDIZEM CD 120 MG PO (08:10)
[2024-11-07] MEDS: PROZAC 20 MG PO (08:10)
[2024-11-07] MEDS: NSS (PRESERVATIVE FREE) 10 ML IV ×2 (08:11→20:52)
[2024-11-07] MEDS: PROTONIX IV 40 MG IV ×2 (08:11→20:53)
--- NOTE | 2024-11-07 11:48 | W.PN.HOSP.TC ---
Today's Communication/Plan
-
Monitor vital signs and see plan
Continue to hold Eliquis per GI
Transfuse 1 unit PRBC
Clears
PT
Assessment / Plan
Assessment / Plan
General: Well Developed, Well Nourished and No Apparent Distress
HEENT: NormoCephalic, Moist mucous membranes and Atraumatic
Respiratory: Clear
Cardiac: S1/S2 and Regular Rhythm; No Murmur or Rub
GI: Soft, Non Distended, Normal Bowel Sounds and Tender (lower abdomen tenderness )
Musculoskeletal: No Edema
Neuro: Nonfocal/grossly intact
Hemorrhagic shock secondary to diverticular bleeding
- CT abdomen pelvis shows active GI bleeding along the mid to distal descending colon
Status post IR evaluation negative for active extravasation.
GI following, status post colonoscopy 11/06 without acute bleeding. cw clears per GI. appears bleeding has stopped
hgb 7.2 today; will give another unit PRBC and monitor
Replete PRBC as necessary
-CT head no acute abnormality
- kcentra being given to reverse Eliquis
Paroxysmal atrial fibrillation
went in and out of afiv 11/05; now in NSR
- Hold Eliquis for now; defer to Gi when to restart. Also advised patient to follow-up with cardiology soon for watchman evaluation. has seen Dr Carlitos Garland earlier
-restarted PO cardizem at lower dose and stopped cardizem gtt
Hypokalemia
Repleted
Essential hypertension
-hold amlodipine
Prior TIA
Osteoarthritis
COPD
Recurrent asthmatic bronchitis
Obstructive sleep apnea
BPH
Full code
DVT prophylaxis SCDs
I spent a total of 52 minutes with the patient or on the floor. More than 50% of this time involved counseling and coordination of care.
Anticipated Discharge: 24 - 48 hours
Subjective/Interval History
-
Date of Service: November 07, 2024
denies pain
Objective Data
-
Labs:
Laboratory Results
11/07/24
06:19
WBC 8.9
Hgb 7.2 L
Hct 21.1 L
Plt Count 220
Sodium 141
Potassium 3.5
Chloride 112 H
Carbon Dioxide 26
BUN 3 L
Creatinine 0.7
Glucose 97
Calcium 8.3 L
Vital Signs:
Vital Signs
Temp Pulse Resp BP Pulse Ox
97.9 F 68 20 124/71 98
11/07/24 11:14 11/07/24 11:14 11/07/24 11:14 11/07/24 11:14 11/07/24 11:14
I&O
11/06/24 11/07/24 11/08/24
06:59 06:59 06:59
Intake Total 4047.5 / 4047.5 1875.0 / 1875.0 0 / 0
Output Total 900 / 900 950 / 950
Balance 3147.5 / 3147.5 925.0 / 925.0 0 / 0
[2024-11-07] MEDS: KCL 40 MEQ PO (11:58)
--- NOTE | 2024-11-07 12:28 | CM ---
Patient seen at bedside
Transfusion of 1 unit PRBC currently
PT to eval
had previously declined hh
stated was going to outpatient therapy
PLAN: PT to eval
--- NOTE | 2024-11-07 12:46 | W.PN.GI.CBS2 ---
Addendum entered and electronically signed by Kelly Pryor MD 11/07/24 17:02:
I saw and examined the patient.
The STATISTICAL PROGRAMMER ANALYST or PA's note was reviewed and I agree with the note.
Comment: Patient without any abdominal pain, nausea or vomiting. Tolerated full liquid diet, 1 bowel movement this morning which was formed and darker with no fresh blood. Feels well.
Okay to advance to low residue diet for dinner.
Monitor H&H, if no further bleeding, could restart Eliquis in 24 to 48 hours.
Will follow
Original Note:
Today's Communication / Plan
-
as per plan
Assessment / Plan
-
Pt is a 79yo presents with hx afib on Eliquis, prior diverticular bleed (while on ASA and Plavix in 2019) prior TIA, COPD, asthmatic bronchitis, sleep apnea, BPH, daily ETOH use, former tobacco abuse, TKR recently completed in September(with post-op
short course steroids, resumed Eliquis, Tylenol and antibiotics) , hernia repair with onset of painless rectal bleeding. In review with patient he began with large volume of bleeding on 11/04 at 1 PM with innumerable stools and too many to count.
He continued with large volume stool in admission with initial hbg 10.5 then drop to 5.7 overnight requiring transfusion. CTA completed with active GI bleed in mid to distal descending colon, diverticulosis, bladder calculus and enlarged prostate.
Pt was given K centra after admission.
-painless rectal bleeding with CTA + active GI bleed in mid to distal descending colon concern for diverticular bleed
anemia with drop in hbg after admission
-afib on Eliquis prior to admission s/p Kcentra given on admission
-recent TKR 09/2024
-hx prior diverticular bleeding in 2019
other med problems:
-prior TIA
- COPD/ asthmatic bronchitis
-sleep apnea
-BPH
- daily ETOH use
- former tobacco abuse
- hernia repair
PLAN:
etiology of bleeding with concern for diverticular source in mid to distal descending colon vs other
Colonoscopy without any signs of bleeding. Brown stool throughout colon.
Hemoglobin slightly decreased at 7.2. Currently receiving another unit of packed red blood cells.
still with large volume stools overnight and drop in hbg requiring transfusion
s/p Kcentra given on admission
last Eliquis 11/03 PM
s/p ortho eval with recent TKR
Tolerating clear liquid diet. Will advance to full liquid.
Continue to trend CBC.
Recommend repeat colonoscopy at appointment to be scheduled for screening purposes.
Subjective
Subjective
Date of Service: November 07, 2024
Patient with small amount of yellow liquid stool last evening. Hemoglobin 7.2 down from 7.8 yesterday. Receiving 1 unit of packed red blood cells currently. Tolerating clear liquid diet. Would like to advance. No signs of abdominal pain.
Patient status post colonoscopy 11/06/2024. Prep of the colon was fair. Examined portion ileum normal. Diverticulosis in the sigmoid, descending, transverse colon. 10 mm polyp in the transverse colon. Stool in the entire colon. Internal
hemorrhoids. Brown stool on colonoscopy positive CTA in the descending colon. Suspect he had a diverticular bleed that resolved. Continues with small amount of brown stool overnight.
Objective
Data Reviewed
Laboratory Data:
Laboratory Results
11/07/24 06:19
11/07/24 06:19
Laboratory Results
PT 18.6 Sec (11.4-14.6) H 11/04/24 20:42
INR 1.49 11/04/24 20:42
APTT 31.5 Sec (23.4-35.0) 11/04/24 20:42
Phosphorus 4.3 mg/dl (2.5-4.5) 11/05/24 03:20
Magnesium 1.7 mg/dl (1.6-2.3) 11/06/24 04:15
Total Bilirubin 1.5 mg/dl (0.2-1.3) H 11/05/24 03:20
AST 17 U/L (17-59) 11/05/24 03:20
ALT 11 U/L (0-50) 11/05/24 03:20
Alkaline Phosphatase 55 U/L (38-126) 11/05/24 03:20
Vital Signs and I&O:
Vital Signs
Temp Pulse Resp BP Pulse Ox
97.9 F 68 20 124/71 98
11/07/24 11:14 11/07/24 11:14 11/07/24 11:14 11/07/24 11:14 11/07/24 11:14
I&O
11/06/24 11/07/24 11/08/24
06:59 06:59 06:59
Intake Total 4047.5 / 4047.5 1875.0 / 1875.0 0 / 0
Output Total 900 / 900 950 / 950
Balance 3147.5 / 3147.5 925.0 / 925.0 0 / 0
Physical Exam
Physical Exam
HEENT: Anicteric
Cardiology: Normal Sinus Rhythm
Pulmonary: Clear
GI: Soft, Non Distended, Non Tender and Normal Bowel Sounds
Extremities: No Edema
Neuro: Non Focal
--- NOTE | 2024-11-07 13:52 | PN.CDI ---
CDI
- -
CDI:
Physician Documentation Request
Admit Date: 11/04/24 21:25
Dear Doctor,
Please review the following and provide your response in the progress notes.
Clinical Indicators:
Pt admitted with Hemorrhagic shock secondary to diverticular bleeding.
11/07 Progress Note: 'Continue to hold Eliquis per GI...- kcentra being given to reverse Eliquis.'
Please clarify the relationship between these conditions:
Yes, Diverticular bleed is related to/associated with/exacerbated by Eliquis.
No, Diverticular bleed is not related to/associated with/exacerbated by Eliquis
Other
Use of terms such as suspected, likely, concern for, or probable (associated with a specific diagnosis that is being evaluated, monitored, or treated as if it exists) are acceptable and can be coded in the inpatient setting, when documented at the
time of discharge.
Thank you,
Cheryl Lynn RN, BSN
CDI Specialist
[place] [facility]
Please use your independent medical judgment in providing your response.
[2024-11-08] VITALS (7 sets, daily range): BP systolic 94–137; BP diastolic 61–91; PULSE 125; O2SAT 100
[2024-11-08] MEDS: CARDIZEM CD 120 MG PO ×2 (07:33→09:45)
[2024-11-08] MEDS: NSS (PRESERVATIVE FREE) 10 ML IV ×2 (07:33→20:28)
[2024-11-08] MEDS: PROZAC 20 MG PO (07:33)
[2024-11-08] MEDS: PROTONIX IV 40 MG IV ×2 (07:33→20:29)
[2024-11-08 07:48] LABS: Blood Urea Nitrogen < 2 mg/dl (9-20); Calcium 8.9 mg/dl (8.4-10.2); Carbon Dioxide 28 mmol/L (22-30); Chloride 110 mmol/L (98-107); Estimated Creatinine Clearance 80 ml/min; Glucose 114 mg/dl (70-99); Potassium 3.5 mmol/L (3.5-5.1); Sodium 142 mmol/L (135-145); eGFR > 60.00
--- NOTE | 2024-11-08 09:13 | W.PN.GI.CBS2 ---
Today's Communication / Plan
-
PLAN:
etiology of bleeding with concern for diverticular source in mid to distal descending colon vs other
Colonoscopy without any signs of bleeding. Brown stool throughout colon.
Received 4 units of packed red blood cells, hemoglobin 11/07 was 7.2, await labs from this morning.
last Eliquis 11/03 PM
s/p ortho eval with recent TKR
Given no further signs of bleeding and patient feels well, tolerating full liquid diet, will advance to low residue diet.
Continue to trend CBC.
Okay to resume Eliquis if no further bleeding in the next 24 hours.
Recommend repeat colonoscopy as outpatient at appointment to be scheduled for screening purposes.
Assessment / Plan
-
Pt is a 79yo presents with hx afib on Eliquis, prior diverticular bleed (while on ASA and Plavix in 2019) prior TIA, COPD, asthmatic bronchitis, sleep apnea, BPH, daily ETOH use, former tobacco abuse, TKR recently completed in September(with post-op
short course steroids, resumed Eliquis, Tylenol and antibiotics) , hernia repair with onset of painless rectal bleeding. In review with patient he began with large volume of bleeding on 11/04 at 1 PM with innumerable stools and too many to count.
He continued with large volume stool in admission with initial hbg 10.5 then drop to 5.7 overnight requiring transfusion. CTA completed with active GI bleed in mid to distal descending colon, diverticulosis, bladder calculus and enlarged prostate.
Pt was given K centra after admission.
-painless rectal bleeding with CTA + active GI bleed in mid to distal descending colon concern for diverticular bleed
anemia with drop in hbg after admission
-afib on Eliquis prior to admission s/p Kcentra given on admission
-recent TKR 09/2024
-hx prior diverticular bleeding in 2019
other med problems:
-prior TIA
- COPD/ asthmatic bronchitis
-sleep apnea
-BPH
- daily ETOH use
- former tobacco abuse
- hernia repair
PLAN:
etiology of bleeding with concern for diverticular source in mid to distal descending colon vs other
Colonoscopy without any signs of bleeding. Brown stool throughout colon.
Received 4 units of packed red blood cells, hemoglobin 11/07 was 7.2, await labs from this morning.
last Eliquis 11/03 PM
s/p ortho eval with recent TKR
Given no further signs of bleeding and patient feels well, tolerating full liquid diet, will advance to low residue diet.
Continue to trend CBC.
Okay to resume Eliquis if no further bleeding in the next 24 hours.
Recommend repeat colonoscopy as outpatient at appointment to be scheduled for screening purposes.
Subjective
Subjective
Date of Service: November 08, 2024
Patient denies any abdominal pain, nausea or vomiting. Tolerating full liquid diet. Had a small brown bowel movement this morning. More formed. No fevers or chills.
Objective
Data Reviewed
Laboratory Data:
Laboratory Results
11/08/24 07:20
Laboratory Results
PT 18.6 Sec (11.4-14.6) H 11/04/24 20:42
INR 1.49 11/04/24 20:42
APTT 31.5 Sec (23.4-35.0) 11/04/24 20:42
Phosphorus 4.3 mg/dl (2.5-4.5) 11/05/24 03:20
Magnesium 1.7 mg/dl (1.6-2.3) 11/06/24 04:15
Total Bilirubin 1.5 mg/dl (0.2-1.3) H 11/05/24 03:20
AST 17 U/L (17-59) 11/05/24 03:20
ALT 11 U/L (0-50) 11/05/24 03:20
Alkaline Phosphatase 55 U/L (38-126) 11/05/24 03:20
Vital Signs and I&O:
Vital Signs
Temp Pulse Resp BP Pulse Ox
98 F 107 23 137/91 97
11/08/24 08:02 11/08/24 08:02 11/08/24 08:02 11/08/24 08:02 11/08/24 08:02
I&O
11/07/24 11/08/24 11/09/24
06:59 06:59 06:59
Intake Total 1875.0 / 1875.0 1969 / 1969
Output Total 950 / 950 2560 / 2560
Balance 925.0 / 925.0 -590 / -590
Physical Exam
Physical Exam
GI: Soft, Non Distended and Non Tender
--- NOTE | 2024-11-08 10:24 | W.PN.HOSP.TC ---
Addendum entered and electronically signed by Gilles Morton MD 11/08/24 10:27:
Diverticular bleed is exacerbated by Eliquis
Original Note:
Today's Communication/Plan
-
monitor vitals
see plan
HR elevated today; inc cardizem back to 240mg
check orthos
cbc pending
Assessment / Plan
Assessment / Plan
General: Well Developed, Well Nourished and No Apparent Distress
HEENT: NormoCephalic, Moist mucous membranes and Atraumatic
Respiratory: Clear
Cardiac: S1/S2 and Regular Rhythm; No Murmur or Rub
GI: Soft, Non Distended, Normal Bowel Sounds and Tender (lower abdomen tenderness )
Musculoskeletal: No Edema
Neuro: Nonfocal/grossly intact
Hemorrhagic shock secondary to diverticular bleeding
- CT abdomen pelvis shows active GI bleeding along the mid to distal descending colon
Status post IR evaluation negative for active extravasation.
GI following, status post colonoscopy 11/06 without acute bleeding. cw clears per GI. appears bleeding has stopped
hgb 7.2 11/07 and recieved 1 unit; hgb pending today
Replete PRBC as necessary
-CT head no acute abnormality
- kcentra being given to reverse Eliquis
Paroxysmal atrial fibrillation
went in and out of afiv 11/05; now in afib
- Hold Eliquis for now; defer to Gi when to restart. Also advised patient to follow-up with cardiology soon for watchman evaluation. has seen Dr Carlitos Garland earlier
- Increase Cardizem back to home dose to 40 mg p.o.
Dizziness
check orthos
Hypokalemia
Repleted
Essential hypertension
-hold amlodipine
Prior TIA
Osteoarthritis
COPD
Recurrent asthmatic bronchitis
Obstructive sleep apnea
BPH
Full code
DVT prophylaxis SCDs
I spent a total of 53 minutes with the patient or on the floor. More than 50% of this time involved counseling and coordination of care.
Anticipated Discharge: Within 24 hours
Subjective/Interval History
-
Date of Service: November 08, 2024
has some dizziness
Objective Data
-
Labs:
Laboratory Results
11/08/24
07:20
WBC Pending
Hgb Pending
Hct Pending
Plt Count Pending
Sodium 142
Potassium 3.5
Chloride 110 H
Carbon Dioxide 28
BUN < 2 L
Creatinine 0.7
Glucose 114 H
Calcium 8.9
Vital Signs:
Vital Signs
Temp Pulse Resp BP Pulse Ox
98 F 105 23 120/80 97
11/08/24 08:02 11/08/24 09:45 11/08/24 08:02 11/08/24 09:45 11/08/24 08:02
I&O
11/07/24 11/08/24 11/09/24
06:59 06:59 06:59
Intake Total 1875.0 / 1875.0 1969 / 1969
Output Total 950 / 950 2560 / 2560
Balance 925.0 / 925.0 -590 / -590
[2024-11-08 11:00] LABS: % Basophils 0.4 % (0-2); % Eosinophils 1.2 % (0-6); % Immature Granulocytes 0.3 % (0-0.5); % Lymphocytes 36.7 % (20.5-51.1); % Monocytes 10.8 % (1.7-9.3); % Neutrophils 50.6 % (42.2-75.2); Absolute Eosinophils 0.1 10^3/uL (0-0.7); Absolute Lymphocytes 3.4 10^3/uL (1.2-3.4); Absolute Neutrophils 4.8 10^3/uL (1.4-6.5); Hematocrit 28.5 % (39.0-52.0); Hemoglobin 9.9 g/dL (13.0-18.0); Mean Corp Hgb Conc. 34.7 g/dL (33.0-37.0); Mean Corpuscular Hgb 32.4 pg (27.0-31.0); Mean Corpuscular Volume 93.1 fL (80.0-94.0); Mean Platelet Volume 10.5 fL (7.4-10.4); Nucleated Red Blood Cells % 0 % (-); Platelet Count 280 10^3/uL (130-400); Red Blood Cell Count 3.06 10^6/uL (4.70-6.10); Red Cell Dist. Width 15.7 % (11.5-14.5); White Blood Cell Count 9.4 10^3/uL (4.8-10.8)
[2024-11-08] MEDS: KCL 40 MEQ PO (13:21)
--- NOTE | 2024-11-08 14:01 | CM ---
Pt evaluated by PT today with recommendation for home care services.
Pt declined; prefers to go to outpatient therapy.
CM will continue to follow for discharge planning needs.
[2024-11-08] MEDS: TYLENOL 650 MG PO (19:35)
[2024-11-09 03:38] VITALS: BP 113/68
[2024-11-09 07:38] LABS: Blood Urea Nitrogen 2 mg/dl (9-20); Carbon Dioxide 29 mmol/L (22-30); Chloride 109 mmol/L (98-107); Estimated Creatinine Clearance 62 ml/min; Glucose 112 mg/dl (70-99); Potassium 4.2 mmol/L (3.5-5.1); Sodium 143 mmol/L (135-145); eGFR > 60.00
[2024-11-09 07:40] LABS: Hematocrit 29.1 % (39.0-52.0); Hemoglobin 9.5 g/dL (13.0-18.0); Mean Corp Hgb Conc. 32.6 g/dL (33.0-37.0); Mean Corpuscular Volume 95.1 fL (80.0-94.0); Mean Platelet Volume 10.4 fL (7.4-10.4); Platelet Count 309 10^3/uL (130-400); Red Blood Cell Count 3.06 10^6/uL (4.70-6.10); White Blood Cell Count 9.5 10^3/uL (4.8-10.8)
[2024-11-09 08:03] VITALS: BP 120/72
[2024-11-09] MEDS: NSS (PRESERVATIVE FREE) 10 ML IV (08:11)
[2024-11-09] MEDS: CARDIZEM CD 240 MG PO (08:12)
[2024-11-09] MEDS: PROTONIX IV 40 MG IV (08:12)
[2024-11-09] MEDS: FLOMAX 0.4 MG PO (08:12)
[2024-11-09 09:29] LABS: Absolute Neutrophils -Man Diff 2.7 10^3/uL (1.4-6.5); Atypical Lymphocytes 1 %; Band Neutrophils 0 % (0-3); Eosinophils 3 % (0-6); Lymphocytes 65 % (20-51); Monocytes 1 % (2-9); Segmented Neutrophils 29 % (42-75)
[2024-11-09 09:30] LABS: Platelets Checked YES
[2024-11-09] MEDS: PROZAC 20 MG PO (09:31)
[2024-11-09 09:33] LABS: Anisocytosis Slight; Hypersegmented Neutrophil Moderate; Normal RBC Morphology No
[2024-11-09 09:34] LABS: Ovalocytes FEW
[2024-11-09 09:36] LABS: Total Cells Counted 100
--- NOTE | 2024-11-09 09:55 | W.PN.GI.CBS2 ---
Today's Communication / Plan
-
PLAN:
etiology of bleeding with concern for diverticular source in mid to distal descending colon vs other
Colonoscopy without any signs of bleeding. Brown stool throughout colon.
Received 4 units of packed red blood cells, hemoglobin 11/07 was 7.2, hemoglobin this morning at 9.5 .
last Eliquis 11/03 PM-okay to resume Eliquis, monitor bowel movements and if there is any black stool or maroon stool, need to let us know and call our office immediately.
s/p ortho eval with recent TKR
Tolerating low residue diet.
Avoid NSAIDs.
Already sent message to my office to set up for a follow-up appointment.
Recommend repeat colonoscopy as outpatient at appointment to be scheduled for screening purposes.
Will sign off, please call back if needed.
Assessment / Plan
-
Pt is a 79yo presents with hx afib on Eliquis, prior diverticular bleed (while on ASA and Plavix in 2019) prior TIA, COPD, asthmatic bronchitis, sleep apnea, BPH, daily ETOH use, former tobacco abuse, TKR recently completed in September(with post-op
short course steroids, resumed Eliquis, Tylenol and antibiotics) , hernia repair with onset of painless rectal bleeding. In review with patient he began with large volume of bleeding on 11/04 at 1 PM with innumerable stools and too many to count.
He continued with large volume stool in admission with initial hbg 10.5 then drop to 5.7 overnight requiring transfusion. CTA completed with active GI bleed in mid to distal descending colon, diverticulosis, bladder calculus and enlarged prostate.
Pt was given K centra after admission.
-painless rectal bleeding with CTA + active GI bleed in mid to distal descending colon concern for diverticular bleed
anemia with drop in hbg after admission
-afib on Eliquis prior to admission s/p Kcentra given on admission
-recent TKR 09/2024
-hx prior diverticular bleeding in 2019
other med problems:
-prior TIA
- COPD/ asthmatic bronchitis
-sleep apnea
-BPH
- daily ETOH use
- former tobacco abuse
- hernia repair
PLAN:
etiology of bleeding with concern for diverticular source in mid to distal descending colon vs other
Colonoscopy without any signs of bleeding. Brown stool throughout colon.
Received 4 units of packed red blood cells, hemoglobin 11/07 was 7.2, hemoglobin this morning at 9.5 .
last Eliquis 11/03 PM-okay to resume Eliquis, monitor bowel movements and if there is any black stool or maroon stool, need to let us know and call our office immediately.
s/p ortho eval with recent TKR
Tolerating low residue diet.
Avoid NSAIDs.
Already sent message to my office to set up for a follow-up appointment.
Recommend repeat colonoscopy as outpatient at appointment to be scheduled for screening purposes.
Will sign off, please call back if needed.
Subjective
Subjective
Date of Service: November 09, 2024
Patient without any abdominal pain, nausea or vomiting. Had brown bowel movement yesterday, tolerating low residue diet
Objective
Data Reviewed
Laboratory Data:
Laboratory Results
11/09/24 06:14
11/09/24 06:14
Laboratory Results
PT 18.6 Sec (11.4-14.6) H 11/04/24 20:42
INR 1.49 11/04/24 20:42
APTT 31.5 Sec (23.4-35.0) 11/04/24 20:42
Phosphorus 4.3 mg/dl (2.5-4.5) 11/05/24 03:20
Magnesium 1.7 mg/dl (1.6-2.3) 11/06/24 04:15
Total Bilirubin 1.5 mg/dl (0.2-1.3) H 11/05/24 03:20
AST 17 U/L (17-59) 11/05/24 03:20
ALT 11 U/L (0-50) 11/05/24 03:20
Alkaline Phosphatase 55 U/L (38-126) 11/05/24 03:20
Vital Signs and I&O:
Vital Signs
Temp Pulse Resp BP Pulse Ox
97.5 F 67 22 120/72 96
11/09/24 08:03 11/09/24 08:03 11/09/24 08:03 11/09/24 08:03 11/09/24 08:03
I&O
11/08/24 11/09/24 11/10/24
06:59 06:59 06:59
Intake Total 1969 / 1969 2280 / 2280
Output Total 2560 / 2560 525 / 525
Balance -590 / -590 1755 / 1755
Physical Exam
Physical Exam
GI: Soft, Non Distended and Non Tender
--- NOTE | 2024-11-09 10:21 | W.PN.HOSP.TC ---
Addendum entered and electronically signed by Gilles Morton MD 11/09/24 10:28:
Patient is back in normal sinus rhythm
Addendum entered and electronically signed by Gilles Morton MD 11/09/24 10:24:
Diverticular bleed is exacerbated by Eliquis
Original Note:
Today's Communication/Plan
-
Monitor vital signs see plan
Continue with Cardizem
Hemoglobin improving, discussed with GI and will restart Eliquis today
Called spouse, left voicemail
Discharge today
Time of discharge 38 minutes
Assessment / Plan
Assessment / Plan
General: Well Developed, Well Nourished and No Apparent Distress
HEENT: NormoCephalic, Moist mucous membranes and Atraumatic
Respiratory: Clear
Cardiac: S1/S2 and Regular Rhythm; No Murmur or Rub
GI: Soft, Non Distended, Normal Bowel Sounds and Tender (lower abdomen tenderness )
Musculoskeletal: No Edema
Neuro: Nonfocal/grossly intact
Hemorrhagic shock secondary to diverticular bleeding
- CT abdomen pelvis shows active GI bleeding along the mid to distal descending colon
Status post IR evaluation negative for active extravasation.
GI following, status post colonoscopy 11/06 without acute bleeding. cw clears per GI. appears bleeding has stopped
hgb 7.2 11/07 and recieved 1 unit; hgb now 9.5. No further bleeding. Discussed with GI, restart Eliquis
Replete PRBC as necessary
-CT head no acute abnormality
- kcentra being given to reverse Eliquis
Paroxysmal atrial fibrillation
went in and out of afiv 11/05; now in afib
- Discussed with GI, restart Eliquis. also advised patient to follow-up with cardiology soon for watchman evaluation. has seen Dr Carlitos Garland earlier
- Increase Cardizem back to home dose to 240 mg p.o.
Dizziness
Resolved
Hypokalemia
Repleted
Essential hypertension
-hold amlodipine; restart when BP>140/90
Prior TIA
Osteoarthritis
COPD
Recurrent asthmatic bronchitis
Obstructive sleep apnea
BPH
Full code
DVT prophylaxis SCDs
Anticipated Discharge: Today
Subjective/Interval History
-
Date of Service: November 09, 2024
denies pain, dizziness
Objective Data
-
Labs:
Laboratory Results
11/09/24
06:14
WBC 9.5
Hgb 9.5 L
Hct 29.1 L
Plt Count 309
Sodium 143
Potassium 4.2
Chloride 109 H
Carbon Dioxide 29
BUN 2 L
Creatinine 0.9
Glucose 112 H
Calcium 9.0
Vital Signs:
Vital Signs
Temp Pulse Resp BP Pulse Ox
97.5 F 67 22 120/72 96
11/09/24 08:03 11/09/24 08:03 11/09/24 08:03 11/09/24 08:03 11/09/24 08:03
I&O
11/08/24 11/09/24 11/10/24
06:59 06:59 06:59
Intake Total 1969 / 1969 2280 / 2280
Output Total 2560 / 2560 525 / 525
Balance -590 / -590 1755 / 1755
--- NOTE | 2024-11-09 10:28 | W.DCSUMMARY ---
Discharge Summary
Discharge Data
Date of Admission: 11/04/24
Date of Discharge: 11/09/24
-
Pending Results: No
Hospital Course
79-year-old male with past medical history of paroxysmal atrial fibrillation, essential hypertension, prior TIA, osteoarthritis, COPD, asthmatic bronchitis, obstructive sleep apnea, BPH came to the hospital with hemorrhagic shock secondary to
diverticular bleeding. Initially patient was admitted to the ICU due to hemorrhagic shock. Initially patient had a CT scan which showed active bleeding. Patient went to the IR evaluation which was negative for active extravasation. Patient
continued to require aggressive blood transfusion throughout hospitalization. Over time. GI bleeding continue to improve. He was also seen by GI and required colonoscopy which did not show any signs of acute active bleeding. Patient then was
able to be started on diet which she tolerated. His hemoglobin continue to improve over time and per GI recommendation Eliquis was restarted on discharge. On this hospitalization he also went into atrial fibrillation with RVR which continue to
improve over time with Cardizem. Once his symptoms continue to improve and he was able to tolerate diet without any further bleeding, he was then discharged home with instructions to follow-up with all his physicians outpatient.
Discharge Plan
-
Patient Disposition: Home (Routine Discharge)
Discharge Diagnosis/Procedures: Hemorrhagic shock secondary to diverticular bleeding
Acute blood loss anemia
Paroxysmal atrial fibrillation
Hypokalemia
Diet: As tolerated and Low Residue
Activity: As tolerated
Driving Restrictions: As prior to admission
Bathing Restrictions: None
Blood Work: CBC next week with primary care provider
Referrals:
Krish Cole PA [Family Provider] - in less than 1 week
Carlitos Garland MD [Active] -
Reagan Yates MD [Active] - in one week
Prescriptions:
New
pantoprazole [Protonix] 40 mg tablet,delayed release (DR/EC)
40 mg PO BID Qty: 60 0RF
Continued
diltiazem HCl 240 mg Capsule,Extended Release 24 Hr
240 mg PO DAILY
rosuvastatin 10 mg Tablet
10 mg PO DAILY
tadalafil [Cialis] 10 mg Tablet
10 mg PO DAILY PRN (Reason: ED)
famotidine 20 mg tablet
20 mg PO HS Qty: 30 0RF
Rx Instructions:
post-op
acetaminophen [Tylenol Extra Strength] 500 mg Tablet
1,000 mg PO QID Qty: 0 0RF
fluoxetine 20 mg capsule
20 mg PO DAILY
Eliquis 5 mg tablet
5 mg PO BID
Rx Instructions:
RESUME 5MG TWICE ADAY DOSE ON 10/09
tamsulosin [Flomax] 0.4 mg Capsule
0.8 mg PO DAILY
Discharge Orders:
Discharge Patient (As Directed); Ordered 11/09/24
Ordered By: Gilles Morton
Discharge Date and Time
Discharge Date/Time: 11/09/24 13:30
Print Language: [place]
--- NOTE | 2024-11-09 11:33 | CM ---
Met with patient at bedside
IMM benefit form explained; form signed @ 1130
Plan: Discharge to home; given script for outpatient PT; will transport home
[2024-11-09 11:34] VITALS: BP 103/70
== END 2024-11-09 13:30 | disposition home or self-care (01) | DRG 377 ==
LOC: 3 WEST ACU 21:25
PROVIDERS: Nurse Practitioner Adult Health; Radiology Vascular & Interventional Radiology; ADMITTING PHYSICIAN Hospitalist; ATTENDING PHYSICIAN Internal Medicine; CONSULT PHYSICIAN Internal Medicine; CONSULT PHYSICIAN Internal Medicine Gastroenterology; EMERGENCY PHYSICIAN Emergency Medicine; FAMILY PHYSICIAN Physician Assistant
PROC: 30233N1 Transfusion of Nonautologous Red Blood Cells into Peripheral Vein, Percutaneous Approach (ICD-10-PCS; 2024-11-05)
PROC: B4151ZZ Fluoroscopy of Inferior Mesenteric Artery using Low Osmolar Contrast (ICD-10-PCS; 2024-11-05)
PROC: 0DJD8ZZ Inspection of Lower Intestinal Tract, Via Natural or Artificial Opening Endoscopic (ICD-10-PCS; 2024-11-06)
DX: K57.33 Diverticulitis of large intestine without perforation or abscess with bleeding (principal); R57.8 Other shock; D62 Acute posthemorrhagic anemia; D68.32 Hemorrhagic disorder due to extrinsic circulating anticoagulants; I48.0 Paroxysmal atrial fibrillation; E87.6 Hypokalemia; K64.0 First degree hemorrhoids; D12.3 Benign neoplasm of transverse colon; Z86.73 Personal history of transient ischemic attack (TIA), and cerebral infarction without residual deficits; I10 Essential (primary) hypertension; M19.90 Unspecified osteoarthritis, unspecified site; G47.33 Obstructive sleep apnea (adult) (pediatric); N40.0 Benign prostatic hyperplasia without lower urinary tract symptoms; Z87.891 Personal history of nicotine dependence; Z91.040 Latex allergy status; J44.89 Other specified chronic obstructive pulmonary disease; Z79.899 Other long term (current) drug therapy; Z79.01 Long term (current) use of anticoagulants; Z85.828 Personal history of other malignant neoplasm of skin; E78.00 Pure hypercholesterolemia, unspecified; F32.A Depression, unspecified; F41.9 Anxiety disorder, unspecified; Z96.651 Presence of right artificial knee joint
CPT/HCPCS: 36247; 36430; 70450; 71045; 74174; 75726; 76937; 80048; 80053; 82077; 82962; 83735; 84100; 85014; 85018; 85025; 85610; 85730; 86850; 86900; 86901; 86920; 93005; 96374; 97162; 97530; 99152; 99153; 99291; C1769; J7168; P9016; Q9967

== ENCOUNTER 2024-12-15 12:41 | Outpatient (RCR) | payer MEDICARE, BC, SELFPAY | END 2024-12-15 23:59 | disposition home or self-care (01) | LOC: RPT 12:41 | PROVIDERS: ATTENDING PHYSICIAN Specialist; FAMILY PHYSICIAN Physician Assistant | DX: Z47.1 Aftercare following joint replacement surgery (principal); M25.561 Pain in right knee; Z73.6 Limitation of activities due to disability; M62.81 Muscle weakness (generalized); R26.2 Difficulty in walking, not elsewhere classified; R26.89 Other abnormalities of gait and mobility; Z96.651 Presence of right artificial knee joint | CPT/HCPCS: 97110; 97112; 97164; 97530 ==

== ENCOUNTER 2025-02-02 23:55 | Observation (INO) | payer MEDICARE, BC, SELFPAY ==
[2025-02-02 19:39] VITALS: BP 123/98
[2025-02-02 20:18] LABS: INR 1.13; PT 14.8 Sec (11.4-14.6)
[2025-02-02 20:19] LABS: APTT 29.0 Sec (23.4-35.0)
[2025-02-02 20:21] LABS: ALT (SGPT) 12 U/L (0-50); AST (SGOT) 15 U/L (17-59); Albumin 4.3 g/dl (3.5-5.0); Alkaline Phosphatase 83 U/L (38-126); Blood Urea Nitrogen 27 mg/dl (9-20); Calcium 9.3 mg/dl (8.4-10.2); Carbon Dioxide 25 mmol/L (22-30); Chloride 108 mmol/L (98-107); Glucose 95 mg/dl (70-99); Potassium 3.7 mmol/L (3.5-5.1); Sodium 141 mmol/L (135-145); Total Protein 8.1 g/dl (6.3-8.2); eGFR > 60.00
[2025-02-02 20:27] LABS: Hematocrit 38.5 % (39.0-52.0); Hemoglobin 12.7 g/dL (13.0-18.0); Mean Corp Hgb Conc. 33.0 g/dL (33.0-37.0); Mean Corpuscular Volume 89.7 fL (80.0-94.0); Platelet Count 229 10^3/uL (130-400); Red Cell Dist. Width 13.3 % (11.5-14.5)
[2025-02-02 20:32] LABS: Nucleated Red Blood Cells % 0 % (-)
[2025-02-02 21:44] VITALS: BP 150/87
[2025-02-02 22:00] VITALS: BP 160/88
[2025-02-02 23:00] VITALS: BP 149/78
--- NOTE | 2025-02-02 23:08 | ED.GENMED ---
History of Present Illness
General
Chief Complaint: Rectal Bleeding
Source: patient and spouse
Time Seen by Provider: 02/02/25 22:55
History of Present Illness
History of Present Illness:
79-year-old male presents emergency department with complaints of bright red blood per rectum that he noticed at 7 PM tonight. He has not had any bleeding since that time. He denies associated abdominal pain, dizziness, syncope, back pain, chest
pain, dyspnea, nausea, vomiting, or other complaints. Of note, patient is anticoagulated given his history of atrial fibrillation. Patient had similar symptoms in October of this year and was quite ill with hemorrhagic shock.
Past History
Past History
ED Past Medical History: Cancer (Basal cell, TIA), CVA, HTN, Hypercholesterolemia and Other (Diverticulitis)
ED Past Surgical History: Orthopedic and Other (Umbilical hernia repair)
Patient has exhibited threatening behavior?: No
PSI?: No
Social History
Tobacco: Non-smoker
Alcohol: None
Drug: None
Personal:
Living: with family
Employment: Employed
Family History
Family History: Hypertension
Phy Exam
Physical Exam
Physical Exam:
GENERAL: Alert , in no apparent distress
EYE: pupils equal and reactive
NECK: Supple, no significant adenopathy.
ENT: o/p clr, mmm.
CARDIAC: Regular rate and rhythm .
LUNGS: Clear breath sounds bilaterally, no acute respiratory distress, no wheezes/rales/rhonchi
ABDOMEN: Soft, without focal tenderness, no r/g, no cvat
NEUROLOGICAL: Alert and oriented, no focal neuro deficits
SKIN: Warm and dry, skin intact.
MUSCULOSKELETAL: No edema, well perfused.
PSYCH: Normal and appropriate interaction.
Course
Orders/Labs/Results
Orders:
Orders
02/02/25 19:51
Type+Screen Urgent
Complete Blood Count/With Diff Urgent
Comprehensive Metabolic Panel Urgent
PTT Urgent
Prothrombin Time Urgent
Abnormal Lab Results
02/02/25
19:51
RBC 4.29 L 10^6/uL
(4.70-6.10)
Hgb 12.7 L g/dL
(13.0-18.0)
Hct 38.5 L %
(39.0-52.0)
Absolute Lymphs (auto) 4.8 H 10^3/uL
(1.2-3.4)
Absolute Monos (auto) 1.0 H 10^3/uL
(0.1-0.6)
Neutrophils % 40.3 L %
(42.2-75.2)
Monocytes % 10.1 H %
(1.7-9.3)
PT 14.8 H Sec
(11.4-14.6)
Chloride 108 H mmol/L
(98-107)
BUN 27 H mg/dl
(9-20)
AST 15 L U/L
(17-59)
02/02/25 19:51
02/02/25 19:51
Vital Signs
Initial and Last Documented VS:
Initial Vital Signs
Temp Pulse Resp BP Pulse Ox
97.6 F 69 18 123/98 95
02/02/25 19:39 02/02/25 19:39 02/02/25 19:39 02/02/25 19:39 02/02/25 19:39
Last Documented Vital Signs
Temp Pulse Resp BP Pulse Ox
97.6 F 63 20 160/88 96
02/02/25 19:39 02/02/25 23:06 02/02/25 23:06 02/02/25 22:00 02/02/25 23:06
*Pulse Oximetry
SaO2: 96
Oxygen Mode of Delivery: Room air
Update Note
Update Note:
Patient presents to the Emergency Department with __bright red blood per rectum
Number and Complexity of Problems Addressed at the Encounter
� Chronic conditions affecting care:
� Acute Exacerbation and/or Progression of Chronic Illness:
� Differential Diagnosis includes: But not limited to diverticular bleed, AVM, colonic mass, etc. etc.
Amount and/or Complexity of Data to be Reviewed and Analyzed
� I performed an independent evaluation of and my interpretation is:
EKG:
CT:
Xrays:
Laboratory Studies: White blood cell count normal, hemoglobin stable 12.7, mild BUN elevation
Other:
� Review of other/old records reveals: Patient was admitted October 2024 with lower GI bleed thought to be related to diverticulosis. He was restarted on his Eliquis before discharge at that time.
� Clinical information was obtained by an independent historian:
� Prescriptions/Medications Considered but not given:
� Further testing considered but not performed:
Risk of Complications and/or Morbidity or Mortality of Patient Management
� Social determinants of health affecting care:
� Discussion with other providers (PCP, Hospitalists, Consultants, etc):
� Escalation of care including admission/observation vs risk of discharge considered: 11:10 PM patient remained stable here, vital signs are stable, no further bleeding since the initial event at 7 PM tonight. Case discussed
with hospitalist, Dr. Castillo, for admission and extremely close observation overnight, DC Eliquis at this time, etc.
ED Attending Note
-
Portions of this chart may have been created with voice recognition software.� Occasional wrong word or��sound alike� substitutions may have occurred due to the inherent limitations of voice recognition software.
Discharge Plan
Departure
Patient Disposition: Admit
Date of Disposition: 02/02/25
Time of Disposition: 23:08
Presentation/result/management discussed w/ accepting MD/DO: Hospitalist
Condition: Fair
Discharge Problem:
Acute lower gastrointestinal bleeding
Prescriptions:
No Action
diltiazem HCl 240 mg Capsule,Extended Release 24 Hr
240 mg PO DAILY
rosuvastatin 10 mg Tablet
10 mg PO DAILY
tadalafil [Cialis] 10 mg Tablet
10 mg PO DAILY PRN (Reason: ED)
famotidine 20 mg tablet
20 mg PO HS Qty: 30 0RF
Rx Instructions:
post-op
acetaminophen [Tylenol Extra Strength] 500 mg Tablet
1,000 mg PO QID Qty: 0 0RF
fluoxetine 20 mg capsule
20 mg PO DAILY
Eliquis 5 mg tablet
5 mg PO BID
Rx Instructions:
RESUME 5MG TWICE ADAY DOSE ON 10/09
pantoprazole [Protonix] 40 mg tablet,delayed release (DR/EC)
40 mg PO BID Qty: 60 0RF
tamsulosin [Flomax] 0.4 mg Capsule
0.8 mg PO DAILY
Referrals:
UNKNOWN - PT DOES,NOT KNOW [Family Provider]
Interventions
Interventions:
*Risk Screen - Suicide Last Done: 02/02/25 19:39
*General Assessment Last Done: 02/02/25 21:56
*Neglect/Abuse Screening Last Done: 02/02/25 21:56
*ED- Fall Risk Assessment Last Done: 02/02/25 21:56
*ED COVID-19 Vaccine History Last Done: 02/02/25 21:56
TX-Mmtabg-Evadxawnoj Assessment Last Done: 02/02/25 21:56
ED- Cardiac Assessment Last Done: 02/02/25 21:56
ED- Pulmonary Assessment Last Done: 02/02/25 21:56
Discharge Date and Time
Print Language: [id number]
--- NOTE | 2025-02-02 23:16 | HPS.HSE ---
Family Physician
-
Family Physician: AKASH Lock
Chief Complaint
-
Bright red blood per rectum x 1
History of Present Illness
79-year-old male who states he was sitting watching TV when he walked into the bathroom he was attempting to undo his shorts when he had a sudden urge of bright red blood per rectum running down his leg with some small dark red clots. He reports
this happened x 1 episode however due to prior diverticular bleed with hemorrhagic shock he decided to come to the ER for evaluation. He has had no bleeding while here. He denies abdominal pain, nausea, vomiting, diarrhea, constipation, chest
pain, palpitations, shortness of breath, cough, fever, chills.
He had an admission 11/04 - 11/09/2024 due to diverticular bleeding with hemorrhagic shock initially had CT showing active bleeding however IR was negative for active extravasation. He did require 4units of blood during his hospital stay he was
restarted on Eliquis upon discharge he did have episode of A-fib with RVR which improved with Cardizem.
He has past medical history diverticular bleed with hemorrhagic shock October 2024, paroxysmal A-fib on Eliquis, HTN, TIA, GI bleed from gastritis 2019, osteoarthritis, COPD, recurrent asthmatic bronchitis, SAMY, BPH
Medical History
Past Medical History
Past Medical History: Reports Other
Additional Past Medical History:
diverticular bleeding
October 2024 colonic bleeding secondary to diverticular bleeding mid to descending colon with hemorrhagic shock that required 4 units of blood
GI bleed from gastritis 2019
paroxysmal atrial fibrillation on Eliquis
hypertension,
osteoarthritis
COPD
recurrent asthmatic bronchitis
obstructive sleep apnea
BPH
Past Surgical History: Reports Other
Additional Past Surgical History:
Bilateral knee replacements right October 2024
Umbilical hernia repair 2008
Basal cell carcinoma removed from nose and right lower extremity
Squamous cell removed from shoulder
Melanoma from left mu-ism
Multiple colonoscopies Mohs surgery various areas of the body
Rhinoplasty
Oral surgery
Cataract extraction 2016 2021
Social History
Tobacco: Non-smoker
Alcohol: Former (Used to drink 2 glasses of wine 7 days a week until September 2024)
Drug: None
Personal: Other (Girlfriend)
Living: With Family
Employment: Retired
Family History
Family History: Not pertinent
Allergies / Home Medications
Allergies reflects when Allergies were last updated in [employer].
Home Medications with original date entered in [employer]
Allergy/Medication List:
Allergies
Allergy/AdvReac Type Severity Reaction Status Date / Time
atropine sulfate (From Allergy Hives Verified 02/02/25 19:39
)
broccoli Allergy diarrhea Verified 02/02/25 19:39
cauliflower Allergy DIARRHEA Verified 02/02/25 19:39
hyoscyamine sulfate (From Allergy Hives Verified 02/02/25 19:39
)
latex Allergy Rash, red Verified 02/02/25 19:39
hands
onion Allergy DIARRHEA Verified 02/02/25 19:39
phenobarbital (From ) Allergy Hives Verified 02/02/25 19:39
scopolamine hydrobromide Allergy Hives Verified 02/02/25 19:39
(From )
Home Medications
diltiazem HCl 240 mg capsule,24 hr,extended release 240 mg PO DAILY 02/12/24
rosuvastatin 10 mg tablet 10 mg PO DAILY 02/12/24
tadalafil 10 mg tablet (Cialis) 10 mg PO DAILY PRN ED 09/08/24
acetaminophen 500 mg tablet (Tylenol Extra Strength) 1,000 mg (2 x 500 mg) PO QID #0 tabs 10/06/24
famotidine 20 mg tablet 20 mg PO HS GI prophylaxis #30 tabs 10/06/24
apixaban 5 mg tablet (Eliquis) 5 mg PO BID Blood clot prevention/tx/afib 11/05/24
fluoxetine 20 mg capsule 20 mg PO DAILY 11/05/24
pantoprazole 40 mg tablet,delayed release (Protonix) 40 mg PO BID #60 tabs 11/09/24
tamsulosin 0.4 mg capsule (Flomax) 0.8 mg PO DAILY 11/09/24
Review of Systems
-
History Source: Patient
A 12 point ROS was completed and negative except as noted: Yes
Constitutional: Denies Fever or Chills
EENT: Denies Sore Throat or Runny Nose
Respiratory: Denies Cough or Trouble Breathing
Cardiac: Denies Chest Pain, Diaphoresis, Palpitations or Syncope
Abdomen/GI: Reports Other (Reported bright red blood per rectum with small dark red clots x 1 episode); Denies Abdominal Pain, Nausea, Vomiting, Diarrhea, Constipated or Bloody Stools
: Denies Dysuria, Frequency, Flank Pain or Incontinence
Musculoskeletal: Denies Joint Pain or Edema
Skin: Denies Itching or Rash
Neurological: Denies Dizzy, Headache or Weakness
Endocrine: Reports No Symptoms
Hematologic/Lymphatic: Reports No Symptoms
Psych: Reports Calm
Physical Exam
Vital Signs
Vital Signs
Temp Pulse Resp BP Pulse Ox
97.6 F 63 20 160/88 96
02/02/25 19:39 02/02/25 23:06 02/02/25 23:06 02/02/25 22:00 02/02/25 23:11
Physical Exam
General: Comfortable and Conversant; No Pain, Fever, Chills or Sweats
HEENT: NormoCephalic, Anicteric, Moist mucous membranes, PERRLA, [place] Conjunctivae and No Ptosis
Respiratory: Clear; No Wheezes, Rales or Rhonchi
Cardiac: S1/S2 and Regular Rhythm; No Murmur, Rub, Gallop or Peripheral Edema
GI: Soft, Non Tender, Non Distended, Normal Bowel Sounds and No Hepatosplenomegaly
Rectal: Deferred by Provider
Genito-urinary: Deferred by me
Musculoskeletal: No Clubbing, No Cyanosis and No Edema
Skin: Warm and Dry; No Rash or Jaundice
Neuro: AO x 3, No Motor Deficits, Nonfocal/grossly intact, Cranial Nerves Intact and No Sensory Deficits; No Slurred Speech, Facial Droop, Tremors or Sedated
Psych: Calm
Laboratory Results
-
02/02/25 19:51
02/02/25 19:51
Laboratory Results
PT 14.8 Sec (11.4-14.6) H 02/02/25 19:51
INR 1.13 02/02/25 19:51
APTT 29.0 Sec (23.4-35.0) 02/02/25 19:51
Total Bilirubin 0.5 mg/dl (0.2-1.3) 02/02/25 19:51
AST 15 U/L (17-59) L 02/02/25 19:51
ALT 12 U/L (0-50) 02/02/25 19:51
Alkaline Phosphatase 83 U/L (38-126) 02/02/25 19:51
Impression/Plan
-
Impression/plan:
Admit to telemetry
#Bright red blood per rectum concern for possible diverticular bleed
# October 2024 colonic bleeding secondary to diverticular bleeding mid to descending colon with hemorrhagic shock that required 4 units of blood
-Hemoglobin 10.7 which is stable, repeat pending
- bp stable
- Hgb 12.7
-Will monitor hemoglobin
- Clear liquid
-H&H q8h
- Monitor for any bleeding if recurrent bleeding would consult GI
-Hold Eliquis last dose was this morning 02/02/2025
# HX GI bleed from gastritis 2019
- Continue Protonix 40 mg twice daily, Pepcid
#Paroxysmal atrial fibrillation
BP 160/80
- Hold Eliquis last dose was this morning 02/02/2025
- Continue diltiazem 240 mg daily with hold parameters
#Essential hypertension
Continue diltiazem with hold parameters
#Prior TIA
- Continue Crestor 10 mg daily
#Osteoarthritis
#COPD�no acute exacerbation
#Recurrent asthmatic bronchitis
#Obstructive sleep apnea
#Depression
Continue fluoxetine 20 mg daily
#BPH
- Continue tamsulosin
#Erectile dysfunction
Hold Cialis
DVT prophylaxis
SCDs
Full code
[2025-02-03] VITALS (10 sets, daily range): BP systolic 79–151; BP diastolic 53–85; PULSE 72–126
--- NOTE | 2025-02-03 00:07 | W.PN.UPDATE ---
Update Note
Progress Note Update
Patient seen in conjunction with BANK NOTE DESIGNER. I agree with the findings on history and physical. I concur with assessment and plan unless stated otherwise.
79-year-old with past medical history significant for atrial fibrillation on anticoagulation, history of GI bleed status post diverticular bleed few months ago in the setting of anticoagulation complicated by hemorrhagic shock. Patient recovered
with resuscitation and is now back on his Eliquis. He reports 1 episode of bright red blood per rectum this evening. He had stood up and then suddenly had a bowel movement that was bloody and had some clots. He had no abdominal pain. He had no
nausea or vomiting. He has not had any prior episodes of diarrhea. He has not had any fevers or chills. Since this episode he has not had another bowel movement. Denies feeling dizzy or lightheaded. He last took his Eliquis this a.m. He is not
on any other thinners.
In the emergency department he was hemodynamically stable and afebrile. His hemoglobin is up to 12.5 from 9.5 from his prior admission. Platelet count is normal.
Abdomen is benign on examination.
Assessment and plan
Bright red blood per rectum -there are some concern for recurrent diverticular bleed. Patient is currently stable and has normal CBC.
-Admit to telemetry observation
-Type and screen
-Check H&H every 8 hours
-Clear liquid diet for now
-Hold Eliquis
-Continue PPI
-Continue his usual medications for now
-Repeat orthostatic vital signs in AM.
-If CBC is stable, he is not orthostatic and had regular BM likely patient can be discharged to follow-up
DVT prophylaxis�SCDs
CODE STATUS�full code
[2025-02-03 05:45] LABS: Hematocrit 38.5 % (39.0-52.0); Hemoglobin 12.8 g/dL (13.0-18.0); Mean Corp Hgb Conc. 33.2 g/dL (33.0-37.0); Mean Corpuscular Volume 89.3 fL (80.0-94.0); Platelet Count 227 10^3/uL (130-400); Red Cell Dist. Width 13.3 % (11.5-14.5)
[2025-02-03 05:53] LABS: ALT (SGPT) 14 U/L (0-50); AST (SGOT) 17 U/L (17-59); Albumin 4.2 g/dl (3.5-5.0); Alkaline Phosphatase 81 U/L (38-126); Blood Urea Nitrogen 22 mg/dl (9-20); Calcium 9.5 mg/dl (8.4-10.2); Carbon Dioxide 25 mmol/L (22-30); Chloride 108 mmol/L (98-107); Estimated Creatinine Clearance 90 ml/min; Glucose 95 mg/dl (70-99); Potassium 3.7 mmol/L (3.5-5.1); Sodium 143 mmol/L (135-145); Total Protein 7.9 g/dl (6.3-8.2); eGFR > 60.00
[2025-02-03 07:01] LABS: Absolute Neutrophils -Man Diff 3.2 10^3/uL (1.4-6.5); Anisocytosis 1+; Normal RBC Morphology No; Platelets Checked Yes
[2025-02-03 07:02] LABS: Total Cells Counted 100
--- NOTE | 2025-02-03 08:34 | W.PN.HOSP.TC ---
Today's Communication/Plan
-
Monitor hemoglobin
GI consult
Hold Eliquis
Assessment / Plan
Assessment / Plan
Gen-AAOx3, NAD
HEENT-NC, AT, anicteric, clear oral mm
Neck-supple
CV-reg, no M, +S1/S2
Lungs-clear B/L
Abd-soft, NT, ND
Ext-no edema
Musculoskeletal-no cyanosis, clubbing
Skin-warm and dry
Neuro-grossly non-focal
Psych-calm, cooperative
Acute lower GI bleed -suspect related to recurrent diverticular bleeding. Relatively stable hemodynamically. 3 episodes of bleeding overnight. Hemoglobin 12.8 this morning, will recheck this afternoon.
If bleeding recurs we will check CTA.
Consult GI service.
Continue clear liquids.
Acute GI bleed exacerbated by anticoagulation with Eliquis. Hold further Eliquis, last dose was Sunday morning.
Of note he was hospitalized here in October 2024 with diverticular bleeding and hemorrhagic shock. Required 5 units PRBC transfusion. Inferior mesenteric arteriogram did not reveal active bleeding and no intervention was done.
Paroxysmal atrial fibrillation -hold Eliquis. Would consider for Watchman device. [place] text sent to his supervisor home energy consultant, Dr. Juan Garland.
Hyperlipidemia -Crestor.
Essential hypertension -stable.
COPD without exacerbation
SAMY
Obesity due to excess calories
Full code
Anticipated Discharge: > 48 hours
Subjective/Interval History
-
Date of Service: February 03, 2025
Patient seen and examined. Had 3 episodes of hematochezia overnight in the emergency room. No associated abdominal pain or other symptoms. Currently feels fine.
Objective Data
-
Labs:
Laboratory Results
02/03/25 02/03/25 02/03/25
05:19 14:00 22:00
WBC 9.8
Hgb 12.8 L Pending Pending
Hct 38.5 L Pending Pending
Plt Count 227
Sodium 143
Potassium 3.7
Chloride 108 H
Carbon Dioxide 25
BUN 22 H
Creatinine 0.7
Glucose 95
Calcium 9.5
Total Bilirubin 0.5
AST 17
ALT 14
Alkaline Phosphatase 81
Vital Signs:
Vital Signs
Temp Pulse Resp BP Pulse Ox
97.7 F 86 20 122/84 94
02/03/25 07:00 02/03/25 07:15 02/03/25 07:15 02/03/25 07:14 02/03/25 07:15
Review of Systems
-
History Source: Patient
All other systems: Reviewed and negative
[2025-02-03] MEDS: PROZAC 20 MG PO (09:07)
[2025-02-03] MEDS: PROTONIX 40 MG PO ×2 (09:07→21:18)
[2025-02-03] MEDS: FLOMAX 0.8 MG PO (09:07)
[2025-02-03] MEDS: CARDIZEM CD 240 MG PO (09:07)
[2025-02-03] MEDS: CRESTOR 10 MG PO (09:07)
--- NOTE | 2025-02-03 09:51 | CON.GI ---
Addendum entered and electronically signed by Corine Chen Do, MD 02/03/25 15:48:
I saw and evaluated the patient. I reviewed the resident�s note and agree with findings and plan as documented in the resident�s note.
Boris is a 79yo M with h/o TIA, pAfib on eliquis and diverticular GI bleeding in 2019 and most recently 10/2024 who presents for painless hematochezia. He had right knee replacement done in September 2024 and found on preop to have afib. He was placed
on eliquis 2.5mg BID his last dose was 02/01 in AM. He stopped it after episode of loose bloody stool. He barely made it to the toilet since then it has occurred once in ER but less bloody. He denies nsaid use. Denies triggers such as
constipation or change in diet. Vitals reviewed exam obese abd NTTP, NABS. Labs reviewed Hbg 12--1212 on three checks.
Impression
- Painless hematochezia
ddx includes recurrent diverticular vs hemorrhoidal
- Mild anemia
- H/o severe GIB suspected diverticular source 10/2024
- Colonic polyp
- pAfib
- Chronic anticoagulation (eliquis last 02/01)
- remote TIA
- SAMY
- COPD
- BPH
- HTN
Recommendation
- Trend H/H and stool output
- Thus far stable
- C/w PPI IV daily
- CLD
- Hold eliquis
- He may benefit from Watchman given recurrent GIB since starting eliquis Spring 2024
- Recent Cscope in October 2024 reviewed and would benefit from repeat for polyp removal. Timing IP vs OP will depend on his clinical course
Will follow with you
Original Note:
Consultation
-
Date/Time Consultation Requested: 02/03/2025 08:32
Date/Time Consultation Performed: 02/03/2025 09:52
Requesting Provider: Roberto Del Rosario DO
Performing Provider: Tom Francis DO (Resident); Corine Savage MD
Reason for Consultation: Recurrent Diverticular Bleed
Medical History
Chief Complaint / HPI
Chief Complaint: Hematochezia
History of Present Illness:
Boris Madera is a 79M with a PMHx of paroxysmal atrial fibrillation (on Eliquis), HTN, OA, COPD, SAMY, BPH, TIA, diverticulosis, diverticulitis and recent LGIB secondary to diverticular bleed complicated by hemorrhagic shock requiring 4U pRBC in
10/2024 and UGIB secondary to gastritis in 2019 who presented to the ED last night with painless hematochezia.
Patient states that last night around 1900, he was getting ready to take a shower when had a sudden urge to urinate. While he was in the process of disrobing in front of the toilet, he had bright red blood per rectum that ran down his leg with small
'pencil point clots'. During this initial episode, the patient quantified the amount of blood as about a cup. He denies any other symptoms prior to, or related to the episode including abdominal pain, nausea, vomiting, diarrhea, constipation, chest
pains, shortness of breath, dizziness, fever, or chills.
ED Course:.
Unremarkable physical exam, AFVSS, initial Hb 12.7, Hct 38.5, PT 14.8, BUN 27, Cr 0.8 (BUN/Creat = 33.75).
Since he has been in the ED, patient endorses 4-5 episodes of bright red blood per rectum since last night. He says that he normally has to get up to urinate multiple times in the middle of the night in the setting of his BPH. Every time he went to
urinate last night, he ended up also having bright red blood per rectum. Patient endorses characteristics similar to the initial event, bright red blood with pinpoint clots. On interview, patient went to the bathroom once, and I was able to
visualized the stool afterwards. BRB was evident but not filling the bowel. There was a small amount of stool with bright red overlaid as well. There were tiny possible clots vs. fecal material. The tissue paper used to wipe was bright red as well.
Notably the patient had an admission from 11/04 - 11/09/2024 due to diverticular bleeding with hemorrhagic shock that required transfusion with 4U pRBCs. CTA was positive for an active GI bleed in mid to distal descending colon with concern for
diverticular bleed however follow up IR angiography did not reveal extravasation and did not result in any embolization. Colonoscopy that visit revealed diverticulosis in the sigmoid, descending and transverse colon, internal hemorrhoids. Follow up
screening colonoscopy was recommended but he did not get.
Past Medical History
Past Medical History: Other (paroxysmal atrial fibrillation (on Eliquis), HTN, OA, COPD, SAMY, BPH, diverticulosis, diverticulitis)
Past Surgical History: Other (L Knee TKR, R Knee TKR, Herniorraphy)
Social History
Tobacco: Non-Smoker
Alcohol: Former (daily, 2 drinks per day, quit 4 months ago)
Personal:
Living: With Family
Family History
Family History: Other (Denies family history or colon CA, denies family history of IBD. )
Allergies / Home Medications
Allergy/AdvReac Type Severity Reaction Status Date / Time
atropine sulfate (From Allergy Hives Verified 02/02/25 19:39
)
broccoli Allergy diarrhea Verified 02/02/25 19:39
cauliflower Allergy DIARRHEA Verified 02/02/25 19:39
hyoscyamine sulfate (From Allergy Hives Verified 02/02/25 19:39
)
latex Allergy Rash, red Verified 02/02/25 19:39
hands
onion Allergy DIARRHEA Verified 02/02/25 19:39
phenobarbital (From ) Allergy Hives Verified 02/02/25 19:39
scopolamine hydrobromide Allergy Hives Verified 02/02/25 19:39
(From )
�Medication �Instructions �Recorded
diltiazem HCl 240 mg capsule,24 240 mg PO DAILY 02/12/24
hr,extended release
rosuvastatin 10 mg tablet 10 mg PO DAILY 02/12/24
apixaban 5 mg tablet (Eliquis) 5 mg PO BID Blood clot 11/05/24
prevention/tx/afib
fluoxetine 20 mg capsule 20 mg PO DAILY 11/05/24
acetaminophen 500 mg tablet 1,000 mg PO BID 02/03/25
(Tylenol Extra Strength)
pantoprazole 40 mg tablet,delayed 40 mg PO DAILY 02/03/25
release (Protonix)
Review of Systems
-
History Source: Patient
All other systems: A 12 pt ROS was Negative except as stated above in HPI
Vital Signs
Temp Pulse Resp BP Pulse Ox
97.7 F 86 20 125/88 94
02/03/25 07:00 02/03/25 07:15 02/03/25 07:15 02/03/25 09:07 02/03/25 07:15
Physical Exam
Exam
General: No Apparent Distress and Comfortable
HEENT: Normocephalic and Anicteric
Respiratory: Clear
Cardiac: Regular Rhythm and Other (occasionally goes in to paroxysmal A/fib on monitor)
GI: Soft, Non Tender, Non Distended and Normal Bowel Sounds
Skin: Warm
Neuro: Awake
Psych: Calm
Results
WBC 9.8 10^3/uL (4.8-10.8) 02/03/25 05:19
Hgb 12.8 g/dL (13.0-18.0) L 02/03/25 05:19
Hct 38.5 % (39.0-52.0) L 02/03/25 05:19
MCV 89.3 fL (80.0-94.0) 02/03/25 05:19
Plt Count 227 10^3/uL (130-400) 02/03/25 05:19
Absolute Neuts (auto) 4.1 10^3/uL (1.4-6.5) 02/02/25 19:51
PT 14.8 Sec (11.4-14.6) H 02/02/25 19:51
INR 1.13 02/02/25 19:51
APTT 29.0 Sec (23.4-35.0) 02/02/25 19:51
Sodium 143 mmol/L (135-145) 02/03/25 05:19
Potassium 3.7 mmol/L (3.5-5.1) 02/03/25 05:19
Chloride 108 mmol/L (98-107) H 02/03/25 05:19
Carbon Dioxide 25 mmol/L (22-30) 02/03/25 05:19
BUN 22 mg/dl (9-20) H 02/03/25 05:19
Creatinine 0.7 mg/dL (0.7-1.3) 02/03/25 05:19
Calcium 9.5 mg/dl (8.4-10.2) 02/03/25 05:19
Total Bilirubin 0.5 mg/dl (0.2-1.3) 02/03/25 05:19
AST 17 U/L (17-59) 02/03/25 05:19
ALT 14 U/L (0-50) 02/03/25 05:19
Alkaline Phosphatase 81 U/L (38-126) 02/03/25 05:19
Diagnostic Image Results:
None.
Prior GI Procedures:
Colonoscopy (11/06/24): - Diverticulosis in the sigmoid colon, in the
descending colon and in the transverse colon.
- One 10 mm polyp in the transverse colon.
- Stool in the entire examined colon.
- Internal hemorrhoids.
- No specimens collected.
With brown stool on today's exam and + CTA in the
descending colon suspect he had a diverticular bleed
that resolved.
Inferior mesenteric arteriogram (11/05/24): including superselective arteriography of multiple branches of the inferior mesenteric artery, did not demonstrate extravasation of contrast.
Assessment / Plan
-
Boris Madera is a 79M with a PMHx of paroxysmal atrial fibrillation (on Eliquis), HTN, OA, COPD, SAMY, BPH, TIA, diverticulosis, diverticulitis and recent LGIB secondary to diverticular bleed complicated by hemorrhagic shock requiring 4U pRBC in
10/2024 and UGIB secondary to gastritis in 2019 who presented to the ED last night with painless hematochezia. He has had 5 episodes of bright red blood per rectum since coming to the hospital. Hb is only mildy below range and stable overnight.
Elevated BUN/Creat, but in the setting of stable hemoglobins, clots in stool, and hemodynamic stability, this more likely represents LGIB. DDx includes repeat diverticular bleed, internal hemorrhoids, or AVM. With recent colonoscopy in October 2024,
less likely to be malignancy, but the patient missed his screen colonoscopy after discharge. Since the patient continues with lower GI bleeding, the patient would benefit from further evaluation. Would do an inpatient colonoscopy to assess for
active bleed with possible hemostasis. If evaluation is negative for source of the bleed, could consider repeating IR angiography which did not reveal the source during the last admission. If bleeding still continues to be uncontrolled and cannot be
located, consider surgical consult.
- Hold Eliquis
- Serial CBCs
- Continue to monitor hemodynamic status
- Continue to monitor BMs for blood character and quantity
- Plan for colonoscopy with goal of locating of bleeding source and hemostasis
- If CBC and hemodynamics are worsening, start with EGD instead
- If colonoscopy is negative, consider repeat IR angiography
Total Time Spent with Patient (in minutes): 42
-
-
Thank you for consultation and allowing me to participate in the patient's care. Please call the welcome wagon hostess GI physician during the after hours with any questions or concerns.
--- NOTE | 2025-02-03 11:36 | CM ---
CM reviewed chart and met with pt and bedside in ED. Lives with , 1 story ranch style home with basement, 2 PEDRIT[address].
Independent in ADLs, personal care and ambulation at baseline. no assistive device but has walker from R knee surgery. Still driving.
No hx VN/SNF.
PCP: Krish Cole
Pharmacy: [facility].
Anticipate discharge home, CM will continue to follow for any discharge planning needs.
[2025-02-03 14:34] LABS: Hematocrit 38.3 % (39.0-52.0); Hemoglobin 12.5 g/dL (13.0-18.0)
[2025-02-03] MEDS: PEPCID 20 MG PO (21:18)
[2025-02-03 22:10] LABS: Hematocrit 36.5 % (39.0-52.0); Hemoglobin 12.2 g/dL (13.0-18.0)
--- NOTE | 2025-02-04 03:14 | DOWNTIME ---
There was a [employer] Client Rail Flaw Detector Operator Downtime on 02/04/2025 from 0100 to 02/04/2025 at 0235. Downtime documentation of patient's care, including medication administrations, has been reconciled in the electronic record per guidelines. Refer to the
patient's paper chart under the miscellaneous tab to see printed paper medication records and downtime forms.
[2025-02-04 03:24] VITALS: BP 103/66
[2025-02-04 07:16] LABS: Hematocrit 35.4 % (39.0-52.0); Hemoglobin 12.0 g/dL (13.0-18.0); Mean Corp Hgb Conc. 33.9 g/dL (33.0-37.0); Mean Corpuscular Volume 87.0 fL (80.0-94.0); Nucleated Red Blood Cells % 0 % (-); Platelet Count 213 10^3/uL (130-400); Red Cell Dist. Width 13.2 % (11.5-14.5)
[2025-02-04] MEDS: PROTONIX 40 MG PO (07:48)
[2025-02-04 07:49] LABS: ALT (SGPT) 14 U/L (0-50); AST (SGOT) 16 U/L (17-59); Albumin 3.8 g/dl (3.5-5.0); Alkaline Phosphatase 65 U/L (38-126); Blood Urea Nitrogen 18 mg/dl (9-20); Calcium 9.1 mg/dl (8.4-10.2); Carbon Dioxide 26 mmol/L (22-30); Chloride 105 mmol/L (98-107); Estimated Creatinine Clearance 70 ml/min; Glucose 109 mg/dl (70-99); Potassium 3.8 mmol/L (3.5-5.1); Sodium 139 mmol/L (135-145); Total Protein 7.2 g/dl (6.3-8.2); eGFR > 60.00
[2025-02-04] MEDS: CRESTOR 10 MG PO (07:50)
[2025-02-04] MEDS: PROZAC 20 MG PO (07:50)
[2025-02-04] MEDS: CARDIZEM CD PO (07:50)
[2025-02-04 07:54] VITALS: BP 102/67
--- NOTE | 2025-02-04 09:50 | W.PN.HOSP.TC ---
Today's Communication/Plan
-
Discharge
Assessment / Plan
Assessment / Plan
Gen-AAOx3, NAD
HEENT-NC, AT, anicteric, clear oral mm
Neck-supple
CV-reg, no M, +S1/S2
Lungs-clear B/L
Abd-soft, NT, ND
Ext-no edema
Musculoskeletal-no cyanosis, clubbing
Skin-warm and dry
Neuro-grossly non-focal
Psych-calm, cooperative
Acute lower GI bleed -suspect related to hemorrhoids as per GI input. Hemoglobin stable. Okay to resume diet per GI. Can discharge as per GI service.
Acute GI bleed exacerbated by anticoagulation with Eliquis.
Of note he was hospitalized here in October 2024 with diverticular bleeding and hemorrhagic shock. Required 5 units PRBC transfusion. Inferior mesenteric arteriogram did not reveal active bleeding and no intervention was done.
Will refer to colorectal surgery as outpatient for hemorrhoidal treatment.
Paroxysmal atrial fibrillation -okay to resume Eliquis, 5 mg twice daily. Follow-up with cardiology as an outpatient for consideration of watchman.
Hyperlipidemia -Crestor.
Essential hypertension -stable.
COPD without exacerbation
SAMY
Obesity due to excess calories
Full code
Dispo -medically stable for discharge home, cleared by GI service. Outpatient follow-up.
32 minutes spent in discharge process.
Anticipated Discharge: Today
Subjective/Interval History
-
Date of Service: February 04, 2025
Patient seen and examined, no complaints.
Objective Data
-
Labs:
Laboratory Results
02/03/25 02/04/25
22:01 06:43
WBC 8.6
Hgb 12.2 L 12.0 L
Hct 36.5 L 35.4 L
Plt Count 213
Sodium 139
Potassium 3.8
Chloride 105
Carbon Dioxide 26
BUN 18
Creatinine 0.9
Glucose 109 H
Calcium 9.1
Total Bilirubin 0.6
AST 16 L
ALT 14
Alkaline Phosphatase 65
Vital Signs:
Vital Signs
Temp Pulse Resp BP Pulse Ox
98.0 F 81 17 102/67 98
02/04/25 07:54 02/04/25 07:54 02/04/25 07:54 02/04/25 07:54 02/04/25 07:54
I&O
02/03/25 02/04/25 02/05/25
06:59 06:59 06:59
Intake Total 480 / 480
Balance 480 / 480
Review of Systems
-
History Source: Patient
All other systems: Reviewed and negative
--- NOTE | 2025-02-04 09:54 | W.DS.TRANS ---
DC Summary - [employer]er Laboratory Equipment
-
Discharge Instructions:
Discharge Diagnosis/Procedures Hemorrhoidal bleeding
Diet Regular
Activity As tolerated
Driving Restrictions As prior to admission
Bathing Restrictions None
Instructions:
Stand-Alone Forms:
Changes to Home Medications: No
Discharge Medications:
DC Medications w/original date entered in [employer]
diltiazem HCl 240 mg capsule,24 hr,extended release 240 mg PO DAILY 02/12/24
rosuvastatin 10 mg tablet 10 mg PO DAILY 02/12/24
apixaban 5 mg tablet (Eliquis) 5 mg PO BID Blood clot prevention/tx/afib 11/05/24
fluoxetine 20 mg capsule 20 mg PO DAILY 11/05/24
acetaminophen 500 mg tablet (Tylenol Extra Strength) 1,000 mg PO BID 02/03/25
pantoprazole 40 mg tablet,delayed release (Protonix) 40 mg PO DAILY 02/03/25
famotidine 20 mg tablet 20 mg PO HS #0 tabs 02/04/25
Home Medication Changes
Pending Results: No
[2025-02-04] MEDS: ELIQUIS 5 MG PO (10:16)
--- NOTE | 2025-02-04 10:29 | W.PN.GI.CBS2 ---
Addendum entered and electronically signed by Corine Chen Do, MD 02/04/25 13:11:
I saw and examined the patient.
The KOSHER INSPECTOR's note was reviewed and I agree with the note.
Comment: Patient denies further bloody BMs. He feels well denies abd pain nausea or vomiting. Vitals stable exam today with CORNELIUS with hemorrhoids and brown heme + stool normal sphincter tone. Labs H/H stable.
Recommendations
- Given stable H/H suspect BRBPR now resolved was hemorrhoidal
- Anusol supp QHS x10 days
- C/w fiber OTC
- Ok to resume eliquis
- Repeat lab slip for 1 wk given and advised to FU with Dr Yates OP basis. He will need OP colonoscopy for FU of prior polyp seen on Cscope 10/2024 non urgently
- Also encouraged pt to FU with his bill board poster to discuss watchman given his serious LGIB in October and now recent readmission
Above d/w hospitalist. Ok from GI perspective for hosp d/c today
Will sign off please call for ?
Original Note:
Today's Communication / Plan
-
.
Assessment / Plan
-
Boris Madera is a 79M with a PMHx of paroxysmal atrial fibrillation (on Eliquis), diverticulosis, diverticulitis and recent LGIB secondary to diverticular bleed complicated by hemorrhagic shock requiring 4U pRBC in 10/2024 and UGIB secondary to
gastritis in 2019 who presented to the ED with painless hematochezia. He has had 5 episodes of bright red blood per rectum since coming to the hospital. Hemoglobin has been stable over the course of admission and remains so this AM. CORNELIUS heme
positive with hemorrhoids. Without overt blood loss anemia, bleeding is more likely from hemorrhoidal bleeding.
- OK to resume Eliquis
- Advance diet to regular
- OK to d/c
- CBC in 1 week
- Outpatient follow up with Dr. Yates
- Screening colonoscopy and polyp removal with Dr. Yates to be discussed at outpatient visit
Total Time Spent with Patient (in minutes): 32
Subjective
Subjective
Date of Service: February 04, 2025
Patient states that hematochezia is improved, notes he had 3 BMs yesterday, and the last one last evening was completely without blood, including on the tissue. Denies abdominal pain, nausea, vomiting, diarrhea. Stools are well formed per patient.
Objective
Data Reviewed
Laboratory Data:
Laboratory Results
02/04/25 06:43
02/04/25 06:43
Laboratory Results
PT 14.8 Sec (11.4-14.6) H 02/02/25 19:51
INR 1.13 02/02/25 19:51
APTT 29.0 Sec (23.4-35.0) 02/02/25 19:51
Total Bilirubin 0.6 mg/dl (0.2-1.3) 02/04/25 06:43
AST 16 U/L (17-59) L 02/04/25 06:43
ALT 14 U/L (0-50) 02/04/25 06:43
Alkaline Phosphatase 65 U/L (38-126) 02/04/25 06:43
Vital Signs and I&O:
Vital Signs
Temp Pulse Resp BP Pulse Ox
98.0 F 81 17 102/67 98
02/04/25 07:54 02/04/25 07:54 02/04/25 07:54 02/04/25 07:54 02/04/25 07:54
I&O
02/03/25 02/04/25 02/05/25
06:59 06:59 06:59
Intake Total 480 / 480
Balance 480 / 480
Physical Exam
Physical Exam
HEENT: Anicteric
GI: Soft, Non Distended, Non Tender and Normal Bowel Sounds
Rectal: Hemorrhoids and Other (minimal stool in the vault, dark brown with some evidence of blood. Heme positive. )
[2025-02-04 11:12] VITALS: BP 119/76
--- NOTE | 2025-02-04 11:22 | CM ---
CM reviewed chart, patient seen bedside, for discharge today. Patient denies needs, confirms transport home. CM will continue to follow for all discharge planning needs.
Plan; home no needs
[2025-02-04] MEDS: ANUSOL HC 25 MG RECTAL (11:24)
== END 2025-02-04 15:02 | disposition home or self-care (01) ==
LOC: 4 WEST ACU 23:55
PROVIDERS: Clinical Nurse Specialist Family Health; Student in an Organized Health Care Education/Training Program; ADMITTING PHYSICIAN Internal Medicine; ATTENDING PHYSICIAN Hospitalist; CONSULT PHYSICIAN Internal Medicine Gastroenterology; EMERGENCY PHYSICIAN Emergency Medicine; FAMILY PHYSICIAN Physician Assistant
DX: K64.8 Other hemorrhoids (principal); I48.0 Paroxysmal atrial fibrillation; E78.5 Hyperlipidemia, unspecified; I10 Essential (primary) hypertension; Z86.73 Personal history of transient ischemic attack (TIA), and cerebral infarction without residual deficits; M19.90 Unspecified osteoarthritis, unspecified site; F32.A Depression, unspecified; N40.0 Benign prostatic hyperplasia without lower urinary tract symptoms; J44.9 Chronic obstructive pulmonary disease, unspecified; G47.33 Obstructive sleep apnea (adult) (pediatric); N52.9 Male erectile dysfunction, unspecified; E66.09 Other obesity due to excess calories; Z68.30 Body mass index [BMI] 30.0-30.9, adult; D64.9 Anemia, unspecified; Z79.899 Other long term (current) drug therapy; Z79.01 Long term (current) use of anticoagulants
CPT/HCPCS: 80053; 85014; 85018; 85025; 85610; 85730; 86850; 86900; 86901; 99285; G0378

== ENCOUNTER → 2025-02-24 12:23 | Outpatient (REF) | payer MEDICARE, BC, SELFPAY | LOC: RAD 12:23 | PROVIDERS: ATTENDING PHYSICIAN Internal Medicine Cardiovascular Disease; FAMILY PHYSICIAN Physician Assistant | DX: I48.0 Paroxysmal atrial fibrillation (principal) | CPT/HCPCS: 75572; Q9967 ==